=== PATIENT | female | born 1990 | race American Indian/Alaskan Native ===

== ENCOUNTER 2017-05-08 17:12 | Inpatient (IN) | payer OTHER ==
[2017-05-08 18:07] LABS: Basophils % (Auto) 0.3 % (0.0-1.8); Hematocrit 25.4 % (30.3-42.9); Hemoglobin 8.1 gm/dl (10.1-14.3); Mean Corpuscular HGB Conc 32 % (30-34); Mean Corpuscular Hemoglobin 26 pg (28-32); Mean Corpuscular Volume 83 fl (79-97); Platelet Count 86 K/mm3 (140-440); Red Blood Count 3.06 M/mm3 (3.65-5.03); Red Cell Distribution Width 19.1 % (13.2-15.2); White Blood Count 4.6 K/mm3 (4.5-11.0)
[2017-05-08 18:17] LABS: Albumin 2.5 g/dL (3.9-5); Albumin/Globulin Ratio 0.7 %; Bilirubin,Total 0.3 mg/dL (0.1-1.2); Calcium 7.3 mg/dL (8.4-10.2); Chloride 103.4 mmol/L (98-107); Potassium 4.7 mmol/L (3.6-5.0); Total Protein 6.1 g/dL (6.3-8.2)
[2017-05-08] MEDS ORDERED: NACL 0.9% 1000 ML 1,000 ML IV ONE (22:15)
[2017-05-08] MEDS ORDERED: ZOFRAN IV ONE (22:15)
--- NOTE | 2017-05-08 22:18 | Emergency Department Report ---
ED General Adult HPI - General Chief complaint: Weakness Stated complaint: POSSIBLE EAR INFECTON Time Seen by Provider: 05/08/17 21:58 Source: patient, EMS Mode of arrival: Ambulatory Limitations: No Limitations - History of Present Illness Initial comments: Patient is 26 years old female history of lupus came to the airways generalized weakness for the last 4 days, bilateral ear pain. Patient denied any vomiting. Denied any fever no diarrhea. Severity scale (0 -10): 7 - Related Data Home Medications Medication Instructions Recorded Confirmed Last Taken predniSONE [Deltasone] 10 mg PO BID 08/17/15 10/18/15 Unknown Previous Rx's Medication Instructions Recorded Last Taken Type HYDROcodone/APAP 5-325 [[place] 1 each PO Q6HR PRN #14 tablet 10/18/15 Unknown Rx 5/325] Levofloxacin [Levaquin TAB] 500 mg PO QDAY #10 tablet 10/18/15 Unknown Rx Meclizine [Antivert] 25 mg PO TID PRN #20 tablet 10/18/15 Unknown Rx Allergies Allergy/AdvReac Type Severity Reaction Status Date / Time No Known Allergies Allergy Unverified 08/17/15 16:18 ED Review of Systems ROS: Stated complaint: POSSIBLE EAR INFECTON Other details as noted in HPI Comment: All other systems reviewed and negative Constitutional: denies: chills, fever Respiratory: denies: cough, shortness of breath, SOB with exertion Cardiovascular: palpitations. denies: chest pain Gastrointestinal: nausea. denies: abdominal pain, vomiting, diarrhea, constipation, hematemesis Musculoskeletal: denies: back pain Neurological: weakness. denies: headache, numbness, paresthesias, confusion, abnormal gait, vertigo ED Past Medical Hx - Past Medical History Previous Medical History?: Yes Additional medical history: Lupus, anemia/hx transfusions - Social History Smoking Status: Never Smoker Substance Use Type: None - Medications Home Medications: Home Medications Medication Instructions Recorded Confirmed Last Taken Type predniSONE [Deltasone] 10 mg PO BID 08/17/15 10/18/15 Unknown History HYDROcodone/APAP 5-325 [[place] 1 each PO Q6HR PRN #14 tablet 10/18/15 Unknown Rx 5/325] Levofloxacin [Levaquin TAB] 500 mg PO QDAY #10 tablet 10/18/15 Unknown Rx Meclizine [Antivert] 25 mg PO TID PRN #20 tablet 10/18/15 Unknown Rx ED Physical Exam - General Limitations: No Limitations General appearance: alert, other (dry mucous membranes) - Head Head exam: Present: normocephalic - Eye Eye exam: Present: normal appearance - ENT ENT exam: Present: normal exam - Neck Neck exam: Present: normal inspection, full ROM. Absent: tenderness, meningismus, lymphadenopathy - Respiratory Respiratory exam: Present: normal lung sounds bilaterally. Absent: respiratory distress, wheezes, rales, rhonchi - Cardiovascular Cardiovascular Exam: Present: tachycardia - GI/Abdominal GI/Abdominal exam: Present: soft, normal bowel sounds. Absent: distended, tenderness, guarding, rebound, rigid, organomegaly, mass, bruit, pulsatile mass - Extremities Exam Extremities exam: Present: normal inspection, full ROM, normal capillary refill. Absent: tenderness, pedal edema - Back Exam Back exam: Present: normal inspection. Absent: CVA tenderness (R), CVA tenderness (L) - Neurological Exam Neurological exam: Present: alert, oriented X3, CN II-XII intact, normal gait - Skin Skin exam: Present: warm, dry, intact ED Course Vital Signs 05/08/17 05/08/17 05/08/17 17:19 20:28 21:43 Temperature 98 F 97.2 F L Pulse Rate 129 H 104 H 83 Respiratory 20 16 16 Rate Blood Pressure 100/70 123/81 O2 Sat by Pulse 100 10 L Oximetry 05/08/17 05/08/17 05/08/17 21:45 21:47 21:49 Temperature Pulse Rate 89 86 98 H Respiratory 15 22 26 H Rate Blood Pressure O2 Sat by Pulse 93 100 Oximetry 05/08/17 05/08/17 05/08/17 21:50 21:53 21:58 Temperature Pulse Rate 88 89 Respiratory 19 12 18 Rate Blood Pressure 124/81 124/81 O2 Sat by Pulse 100 100 98 Oximetry ED Medical Decision Making - Lab Data Result diagrams: 05/08/17 17:41 05/08/17 17:41 Critical care attestation.: If time is entered above; I have spent that time in minutes in the direct care of this critically ill patient, excluding procedure time. ED Disposition Clinical Impression: Acute renal failure, Dehydration Disposition: OP ADMIT IP TO THIS HOSP Is pt being admited?: Yes Condition: Stable Referrals: PRIMARY CARE, [Primary Care Provider] - 3-5 Days
[2017-05-09] MEDS ORDERED: ZOFRAN IV ONE (00:10)
[2017-05-09 00:33] LABS: Bacteria,Urine 2+ /HPF (Negative); Bilirubin,Urine NEG (Negative); Blood,Urine LG (Negative); Ketones,Urine NEG (Negative); Leukocyte Esterase,Urine NEG (Negative); Mucus,Urine FEW /HPF; Nitrite,Urine NEG (Negative); Urobilinogen,Urine < 2.0 mg/dL (<2.0)
[2017-05-09 00:34] LABS: Protein,Urine >500 mg/dL (Negative)
[2017-05-09] MEDS ORDERED: DULCOLAX PR PRN (02:18)
[2017-05-09] MEDS ORDERED: ZOFRAN IV PRN (02:18)
[2017-05-09] MEDS ORDERED: MILK OF MAGNESIA PO PRN (02:18)
[2017-05-09] MEDS ORDERED: NACL 0.9% 1000 ML 1,000 ML ONE (02:23)
[2017-05-09] MEDS ORDERED: SOLU MEDROL IV ONE (02:31)
[2017-05-09] MEDS ORDERED: D5W IV ONE (02:31)
--- NOTE | 2017-05-09 02:36 | History and Physical Report ---
History of Present Illness Date of examination: 05/09/17 History of present illness: A 26-year-old woman with a history of lupus, anemia comes emergency room with complaints of feeling like she has an ear infection. She complains of pain in the right greater than left ear, decreased sense of hearing. She states she felt the same when she had an ear infection the last time. She has been in the hospital his 3 days, she was treated for nausea vomiting and she had another hospitalization prior to that for nausea and vomiting. Review Of Systems: Constitutional: no weight loss Ears, eyes, nose, mouth and throat: no nasal congestion, no nasal discharge, no sinus pressure, blurry vision, diplopia Neck: No neck pain or rigidity. Cardiovascular: chest pain, orthopnea, palpitations Respiratory: No shortness of breath, cough Gastrointestinal: abdominal pain, hematochezia Genitourinary : no dysuria, frequency , hematuria Musculoskeletal: no muscle ache Integumentary: no rash, no pruritis Neurological: no parathesias, focal weakness Endocrine: no cold or heat intolerance, no polyuria or polydipsia Hematologic/Lymphatic: no easy bruising, no easy bleeding, no gland swelling Allergic/Immunologic: no urticaria, no angioedema. PAST MEDICAL HISTORY:lupus, anemia PAST SURGICAL HISTORY: None FAILY HISTORY: Hypertension SOCIAL HISTORY: Denies alcohol, tobacco, drugs Medications and Allergies Allergies Allergy/AdvReac Type Severity Reaction Status Date / Time No Known Allergies Allergy Unverified 08/17/15 16:18 Home Medications Medication Instructions Recorded Confirmed Last Taken Type No Known Home Medications [No 05/10/17 05/10/17 Unknown History Reported Home Medications] Active Meds: Active Medications Acetaminophen (Tylenol) 650 mg PO Q4H PRN PRN Reason: Pain MILD(1-3)/Fever >100.5/OLIVEIRA Bisacodyl (Dulcolax) 10 mg [place] QDAY PRN PRN Reason: Constipation unrelieved by MOM Sodium Chloride (Nacl 0.9% 1000 Ml) 1,000 mls @ 150 mls/hr IV DIRECT IBANKA Ceftriaxone Sodium (Rocephin/Ns 1 Gm/50 Ml) 1 gm in 50 mls @ 100 mls/hr IV Q24HR BIANKA PRN Reason: Protocol Methylprednisolone Sodium (Succinate 60 mg/ Dextrose) 50 mls @ 100 mls/hr IV ONCE ONE Stop: 05/09/17 03:00 Magnesium Hydroxide (Milk Of Magnesia) 30 ml PO Q4H PRN PRN Reason: Constipation Ondansetron HCl (Zofran) 4 mg IV Q4H PRN PRN Reason: N/V unrelieved by Reglan Exam - Physical Exam Narrative exam: Gen. appearance: Patient lying in bed in no acute distress HEENT: Normocephalic/atraumatic, pupils equal round reactive to light, extra alkaline movement intact, no scleral icterus, no JVD or thyromegaly or nodule, neck is supple, mucous membrane moist, no erythema or exudate Heart: S1-S2, regular rate and rhythm Lungs: Clear to auscultation bilateral breathing comfortable Abdomen: Positive bowel sounds, nontender, nondistended, no organomegaly Extremities: No edema, cyanosis, clubbing Neuro:: Oriented 3 , cranial nerves II-12 intact, speech, motor intact Skin: No rash, nodules, warm dry - Constitutional Vitals: Temp Pulse Resp BP Pulse Ox 97.2 F L 72 16 103/64 100 05/08/17 20:28 05/09/17 01:27 05/09/17 01:27 05/09/17 01:27 05/09/17 01:27 Results - Labs CBC & Chem 7: 05/12/17 04:46 05/12/17 04:46 Labs: Abnormal lab results 05/08/17 05/08/17 05/08/17 Range/Units 17:41 17:41 Unknown RBC 3.06 L (3.65-5.03) M/mm3 Hgb 8.1 L (10.1-14.3) gm/dl Hct 25.4 L (30.3-42.9) % MCH 26 L (28-32) pg RDW 19.1 H (13.2-15.2) % Plt Count 86 L (140-440) K/mm3 Lymph # 0.8 L (1.2-5.4) K/mm3 Seg Neutrophils % 77.6 H (40.0-70.0) % Carbon Dioxide 17 L (22-30) mmol/L BUN 99 H (7-17) mg/dL Creatinine 4.0 H (0.7-1.2) mg/dL Glucose 109 H (65-100) mg/dL Calcium 7.3 L (8.4-10.2) mg/dL AST 133 H (5-40) units/L ALT 66 H (7-56) units/L Total Protein 6.1 L (6.3-8.2) g/dL Albumin 2.5 L (3.9-5) g/dL Urine WBC (Auto) 22.0 H (0.0-6.0) /HPF Assessment and Plan Assessment Acute renal failure Possible lupus flare UTI Possible ear infection Anemia Plan Admit to medicine Start IV fluids, check urine electrolytes, obtain ultrasound of the kidneys Start IV Rocephin,start steroids, first dose now Continue appropriate outpatient medications, DVT prophylaxis
--- NOTE | 2017-05-09 03:33 | Ultrasound Report ---
FINAL REPORT EXAM: US RENAL BILAT HISTORY: arf TECHNIQUE: Routine sonographic evaluation was obtained of both kidneys. FINDINGS: Both kidneys reveal diffusely increased echotexture of the cortices bilaterally compatible with renal medical disease. There is no evidence of hydronephrosis or shadowing stones. The right kidney measures 11.7 cm x 5.9 cm x 5.4 cm. The left kidney measures 11.3 cm x 5.3 cm x 5.1 cm. IMPRESSION: Increased cortical echotexture both kidneys compatible with renal medical disease. No evidence of renal stones or hydronephrosis.
[2017-05-09] MEDS: NACL 0.9% 1000 ML 1,000 ML IV SCH ×3 (04:47→23:04)
[2017-05-09 10:13] LABS: Calcium 6.5 mg/dL (8.4-10.2); Potassium 4.8 mmol/L (3.6-5.0)
[2017-05-09] MEDS: DELTASONE PO SCH (10:41)
[2017-05-09] MEDS: ROCEPHIN/NS 1 GM/50 ML 1 GM/50 ML BAG IV SCH (10:42)
[2017-05-09] MEDS: MEGACE PO SCH ×4 (11:13→23:03)
--- NOTE | 2017-05-09 13:14 | Consultation ---
History of Present Illness - Reason for Consult Consult date: 05/09/17 acute renal failure, metabolic acidosis Requesting physician: REENA MAO - History of Present Illness This is a 26 year old female with PMH of Lupus (diagnosed in 2008) and anemia who presented to [facility] today with complaints of generalized weakness, fatigue, nosebleed (woke up with nosebleed), decreased appetite, and bilateral ear pain with drainage for the past 3-4 days. Patient states she was hospitalized [facility] overnight last week for suspected lupus flare up, prescribed prednisone upon discharge. Patient also states she had an infection (not sure of source) when she was at [place], no antibiotics prescribed. Patient denies NSAIDs or antibiotics (doesn't recall taking levaquin). On admission, SCr level was 4.0, decreased to 3.0 today. Renal ultrasound showed increased cortical echotexture both kidneys compatible with renal medical disease, no renal stones or hydronephrosis. Review of labs in 2015 showed SCr level between 0.5-0.6. Patient denies any known history of kidney problems. Sister at bedside, states patient had black stool a couple of weeks ago, but attributed it to her taking iron tablets. We were consulted to evaluate this patient who has acute renal failure and nephrology consultation requested. Past History Past Medical History: anemia, other (lupus) Medications and Allergies Allergies Allergy/AdvReac Type Severity Reaction Status Date / Time No Known Allergies Allergy Unverified 08/17/15 16:18 Home Medications Medication Instructions Recorded Confirmed Last Taken Type predniSONE [Deltasone] 10 mg PO BID 08/17/15 10/18/15 Unknown History HYDROcodone/APAP 5-325 [[place] 1 each PO Q6HR PRN #14 tablet 10/18/15 Unknown Rx 5/325] Levofloxacin [Levaquin TAB] 500 mg PO QDAY #10 tablet 10/18/15 Unknown Rx Meclizine [Antivert] 25 mg PO TID PRN #20 tablet 10/18/15 Unknown Rx Active Meds: Active Medications Acetaminophen (Tylenol) 650 mg PO Q4H PRN PRN Reason: Pain MILD(1-3)/Fever >100.5/OLIVEIRA Bisacodyl (Dulcolax) 10 mg [place] QDAY PRN PRN Reason: Constipation unrelieved by MOM Sodium Chloride (Nacl 0.9% 1000 Ml) 1,000 mls @ 150 mls/hr IV DIRECT [facility] Last Admin: 05/09/17 10:42 Dose: 150 mls/hr Ceftriaxone Sodium (Rocephin/Ns 1 Gm/50 Ml) 1 gm in 50 mls @ 100 mls/hr IV Q24HR [facility] PRN Reason: Protocol Last Admin: 05/09/17 10:42 Dose: 100 mls/hr Magnesium Hydroxide (Milk Of Magnesia) 30 ml PO Q4H PRN PRN Reason: Constipation Megestrol Acetate (Megace) 40 mg PO QID [facility] Last Admin: 05/09/17 11:13 Dose: 40 mg Ondansetron HCl (Zofran) 4 mg IV Q4H PRN PRN Reason: N/V unrelieved by Reglan Prednisone (Deltasone) 60 mg PO QDAY [facility] Last Admin: 05/09/17 10:41 Dose: 60 mg Review of Systems Constitutional: fatigue, weakness, poor appetite, no fever, no chills Ears, nose, mouth and throat: ear pain, ear discharge (bilateral ear drainage ( unsure about color)) Cardiovascular: dyspnea on exertion, no edema, no lightheadedness, no shortness of breath, no leg edema Respiratory: no cough with sputum, no shortness of breath, no home oxygen Gastrointestinal: nausea, loss of appetite, no abdominal pain, no vomiting, no diarrhea, no constipation, no hematemesis Genitourinary Female: kidney stones Menstruation: currently menstrual Musculoskeletal: no arm numbness/tingling, no leg numbness/tingling Integumentary: no sores, no wounds Neurological: no numbness, no tingling, no seizures, no headaches, no change in speech, no loss of vision Psychiatric: no anxiety, no depression Exam - Vital Signs Vital signs: Vital Signs Temp Pulse Resp BP Pulse Ox 98 F 129 H 20 100/70 100 05/08/17 17:19 05/08/17 17:19 05/08/17 17:19 05/08/17 17:19 05/08/17 17:19 - General Appearance General appearance: well-nourished (no acute distress) EENT: ATNC Neck: Present: neck supple Respiratory: Clear to Ascultation Heart: regular, S1S2 Gastrointestinal: Present: normoactive bowel sounds. Absent: tenderness, distended Integumentary: warm and dry Neurologic: alert and oriented x3 Musculoskeletal: Present: other (no edema to both lower extremities) Psychiatric: mood/affect appropriate, cooperative Results - Lab Results 05/08/17 17:41 05/09/17 09:37 Most recent lab results Calcium 6.5 mg/dL (8.4-10.2) L 05/09/17 09:37 Urine Creatinine 62.5 mg/dL (0.1-20.0) H 05/09/17 02:36 Urine Sodium 30 mmol/L 05/09/17 02:36 Assessment and Plan - Patient Problems (1) Acute renal failure Current Visit: Yes Status: Acute Qualifiers: Acute renal failure type: A Plan to address problem: Renal function reviewed, SCr level decreased to 3.0 today, yesterday's SCr level was 4.0 Acute Renal Failure possibly secondary to prerenal etiology/ATN from dehydration , possibly lupus nephritis, no evidence of obstruction Exact SCr baseline unknown, review of labs in 2015 showed SCr level between 0.5- 0.6 Obtain C3,C4, CH50, DNA(ds) antibody, MALU level for now If renal function continues to improve on IV fluids, possibly not lupus nephritis etiology and more likely prerenal azotemia. If renal function doesn't improve and/or worsens, possibly lupus nephritis and work up additional glomerulonephritis Continue 0.9% NS infusion at 150 ml/hr, monitor volume and respiratory status closely Obtain urine lytes/studies Renally dose medications Obtain daily weight Strict intake and output Renal plan discussed with Dr Bryant Continue supportive therapy (2) Metabolic acidosis Current Visit: Yes Status: Acute Plan to address problem: Non-anion gap metabolic acidosis possibly secondary to acute renal failure Repeat BMP today at 1800 Obtain ABG If warrented, will start on sodium bicarbonate supplementation (3) Lupus Current Visit: No Status: Acute Qualifiers: Systemic lupus erythematosus type: S Systemic lupus erythematosus organ involvement: S Plan to address problem: Started on prednisone 60 mg orally once a day Questionable lupus flare up As per primary team (4) Acute otitis media Current Visit: Yes Status: Acute Qualifiers: Otitis media type: O Laterality: L Recurrence: R Spontaneous tympanic membrane rupture: S Plan to address problem: Possible acute otitis media Started on rocephin (5) Dehydration Current Visit: Yes Status: Acute Plan to address problem: Started on 0.9% NS infusion at 150 ml/hr Monitor volume status closely (6) Anemia Current Visit: Yes Status: Acute Qualifiers: Anemia type: A Iron deficiency anemia type: I Vitamin B12 deficiency anemia type: V Folate deficiency anemia type: F Bone marrow failure anemia type: B Hemolytic anemia type: H Other causes of anemia: O Chronic kidney disease stage: C Plan to address problem: Hgb level was 8.1 yesterday Obtain iron studies
--- NOTE | 2017-05-09 13:31 | Event Note ---
Date: 05/09/17 26-year-old -[place] female admitted this morning for acute renal failure, acute otitis media, and lupus flareup. Nephrology was consulted. Continue with the current management plan.
[2017-05-09 14:08] LABS: Magnesium 2.4 mg/dL (1.7-2.3); Phosphorous 5.8 mg/dL (2.5-4.5)
[2017-05-09 19:06] LABS: ISTAT Base Excess -11; ISTAT DEVICE 0; ISTAT HCO3 14.9; ISTAT PCO2 29.3 (35-45); ISTAT PH 7.313 (7.35-7.45); ISTAT PO2 103 (80-105); ISTAT SO2 97; ISTAT TCO2 16
[2017-05-10 05:46] LABS: Basophils % (Auto) 0.3 % (0.0-1.8); Mean Corpuscular HGB Conc 32 % (30-34); Mean Corpuscular Hemoglobin 26 pg (28-32); Mean Corpuscular Volume 82 fl (79-97); Red Blood Count 2.25 M/mm3 (3.65-5.03); Red Cell Distribution Width 18.6 % (13.2-15.2); White Blood Count 2.4 K/mm3 (4.5-11.0)
[2017-05-10 05:52] LABS: Platelet Count 57 K/mm3 (140-440)
[2017-05-10 05:54] LABS: Hematocrit 18.5 % (30.3-42.9); Hemoglobin 5.9 gm/dl (10.1-14.3)
[2017-05-10 06:53] LABS: Sodium TNR mmol/L (137-145)
[2017-05-10 06:54] LABS: Anion Gap TNR mmol/L; BUN/Creatinine Ratio TNR; Blood Urea Nitrogen TNR mg/dL (7-17); Calcium TNR mg/dL (8.4-10.2); Carbon Dioxide TNR mmol/L (22-30); Chloride TNR mmol/L (98-107); Glucose TNR mg/dL (65-100); Potassium TNR mmol/L (3.6-5.0)
[2017-05-10 07:56] LABS: Hematocrit 19.3 % (30.3-42.9)
[2017-05-10] MEDS ORDERED: NACL 0.9% 500 ML 500 ML IV NR (08:00)
[2017-05-10] MEDS: DELTASONE PO SCH (09:01)
[2017-05-10] MEDS: MEGACE PO SCH ×4 (09:01→22:56)
[2017-05-10] MEDS: ROCEPHIN/NS 1 GM/50 ML 1 GM/50 ML BAG IV SCH (09:07)
[2017-05-10] MEDS: PERCOCET 5/325 PO PRN (09:15)
[2017-05-10 10:13] LABS: Calcium 7.2 mg/dL (8.4-10.2); Chloride 113.9 mmol/L (98-107); Potassium 4.3 mmol/L (3.6-5.0)
--- NOTE | 2017-05-10 12:17 | XRay Report ---
CHEST ONE VIEW INDICATION: Chest pain. COMPARISON: 11/06/2015. FINDINGS: Portable, single, frontal chest radiograph demonstrates normal cardiomediastinal silhouette. Clear lungs. Extrinsic EKG leads. Mild lumbar curvature without acute osseous process. CONCLUSION: No acute disease in the chest. Thank you for the opportunity to participate in this patient's care.
--- NOTE | 2017-05-10 15:57 | Progress Note ---
Assessment and Plan Assessment and plan: This is a 26 year old female with PMH of Lupus (diagnosed in 2008) and anemia who presented to [facility] today with complaints of generalized weakness, fatigue, nosebleed (woke up with nosebleed), decreased appetite, and bilateral ear pain with drainage for the past 3-4 days. Patient states she was hospitalized [facility] overnight last week for suspected lupus flare up, prescribed prednisone upon discharge. Patient also states she had an infection (not sure of source) when she was at [place], no antibiotics prescribed. Acute renal failure - ATN versus lupus nephritis - Nephrology consulted - Creatinine improved from 4-2.6 to morning - Patient was given IV fluids and steroids SLE flareup - Continue steroids Bilateral otitis media - Continue IV antibiotic -ID consult requested Severe anemia - Transfusion ordered we'll check posttransfusion hemoglobin and hematocrit Decreased appetite - megestrol ordered DVT prophylaxis - SCDs because of severe anemia Disposition - Continue inpatient care CODE STATUS Full Her sister Karen was called for update At [phone] but didn't answer the phone. History Interval history: Attempt was seen and evaluated this morning, patient did have any new complaints. Patient has hard of hearing. I discussed the management plan with the patient. I tried to reach to her sister Karen @[phone] unsuccessfully. Hospitalist Physical - Physical exam Narrative exam: Not in cardiopulmonary distress. The patient appeared friable. Vital signs as documented. Head exam is unremarkable. Pale Conjunctivae anicteric sclera Neck is without jugular venous distension, thyromegaly, or carotid bruits. Lungs are clear to auscultation. Cardiac exam reveals regular rate and Rhythm. First and second heart sounds normal. No murmurs, rubs or gallops. Abdominal exam reveals normal bowel sounds, no masses, no organomegaly and no aortic enlargement. Extremities are nonedematous and both femoral and pedal pulses are normal. CMO: Alert and oriented 3. No focal weakness. - Constitutional Vitals: Temp Pulse Resp BP Pulse Ox 98.2 F 66 18 94/59 100 05/10/17 12:00 05/10/17 12:00 05/10/17 12:00 05/10/17 12:00 05/10/17 12:00 Results - Labs CBC & Chem 7: 05/10/17 07:20 05/10/17 09:44 Labs: Laboratory Last Values WBC 2.4 K/mm3 (4.5-11.0) L 05/10/17 04:36 RBC 2.25 M/mm3 (3.65-5.03) L 05/10/17 04:36 Hgb 6.0 gm/dl (10.1-14.3) L 05/10/17 07:20 Hct 19.3 % (30.3-42.9) L* 05/10/17 07:20 MCV 82 fl (79-97) 05/10/17 04:36 MCH 26 pg (28-32) L 05/10/17 04:36 MCHC 32 % (30-34) 05/10/17 04:36 RDW 18.6 % (13.2-15.2) H 05/10/17 04:36 Plt Count 57 K/mm3 (140-440) L 05/10/17 04:36 Lymph % (Auto) 13.5 % (13.4-35.0) 05/10/17 04:36 [place] % (Auto) 5.8 % (0.0-7.3) 05/10/17 04:36 Eos % (Auto) 0.0 % (0.0-4.3) 05/10/17 04:36 Baso % (Auto) 0.3 % (0.0-1.8) 05/10/17 04:36 Lymph # 0.3 K/mm3 (1.2-5.4) L 05/10/17 04:36 Sherman # 0.1 K/mm3 (0.0-0.8) 05/10/17 04:36 Eos # 0.0 K/mm3 (0.0-0.4) 05/10/17 04:36 Baso # 0.0 K/mm3 (0.0-0.1) 05/10/17 04:36 Seg Neutrophils % 80.4 % (40.0-70.0) H 05/10/17 04:36 Seg Neutrophils # 1.9 K/mm3 (1.8-7.7) 05/10/17 04:36 POC ABG pH 7.313 (7.35-7.45) L 05/09/17 19:00 POC ABG pCO2 29.3 (35-45) L 05/09/17 19:00 POC ABG pO2 103 (80-105) 05/09/17 19:00 POC ABG HCO3 14.9 05/09/17 19:00 POC ABG Total CO2 16 05/09/17 19:00 POC ABG O2 Sat 97 05/09/17 19:00 POC ABG Base Excess -11 05/09/17 19:00 FiO2 21 % 05/09/17 19:00 Sodium 141 mmol/L (137-145) 05/10/17 09:44 Potassium 4.3 mmol/L (3.6-5.0) 05/10/17 09:44 Chloride 113.9 mmol/L (98-107) H 05/10/17 09:44 Carbon Dioxide 17 mmol/L (22-30) L 05/10/17 09:44 Anion Gap 14 mmol/L 05/10/17 09:44 BUN 81 mg/dL (7-17) H 05/10/17 09:44 Creatinine 2.6 mg/dL (0.7-1.2) H 05/10/17 09:44 Estimated GFR 27 ml/min 05/10/17 09:44 BUN/Creatinine Ratio 31 % 05/10/17 09:44 Glucose 129 mg/dL (65-100) H 05/10/17 09:44 Calcium 7.2 mg/dL (8.4-10.2) L 05/10/17 09:44 Phosphorus 5.80 mg/dL (2.5-4.5) H 05/09/17 13:19 Magnesium 2.40 mg/dL (1.7-2.3) H 05/09/17 13:19 Total Bilirubin 0.30 mg/dL (0.1-1.2) 05/08/17 17:41 AST 133 units/L (5-40) H 05/08/17 17:41 ALT 66 units/L (7-56) H 05/08/17 17:41 Alkaline Phosphatase 60 units/L (35-129) 05/08/17 17:41 Troponin T 0.091 ng/mL (0.00-0.029) H 05/10/17 09:44 Total Protein 6.1 g/dL (6.3-8.2) L 05/08/17 17:41 Albumin 2.5 g/dL (3.9-5) L 05/08/17 17:41 Albumin/Globulin Ratio 0.7 % 05/08/17 17:41 PTH Intact 117.2 pg/mL (15-65) H 05/09/17 13:19 Urine Color Yellow (Yellow) 05/08/17 Unknown Urine Turbidity Clear (Clear) 05/08/17 Unknown Urine pH 5.0 (5.0-7.0) 05/08/17 Unknown Ur Specific [place] 1.013 (1.003-1.030) 05/08/17 Unknown Urine Protein >500 mg/dL (Negative) 05/08/17 Unknown Urine Glucose (UA) Neg mg/dL (Negative) 05/08/17 Unknown Urine Ketones Neg mg/dL (Negative) 05/08/17 Unknown Urine Blood Lg (Negative) 05/08/17 Unknown Urine Nitrite Neg (Negative) 05/08/17 Unknown Ur Reducing Substances Not Reportable 05/08/17 Unknown Urine Bilirubin Neg (Negative) 05/08/17 Unknown Urine Ictotest Not Reportable 05/08/17 Unknown Urine Urobilinogen < 2.0 mg/dL (<2.0) 05/08/17 Unknown Ur Leukocyte Esterase Neg (Negative) 05/08/17 Unknown Urine WBC (Auto) 22.0 /HPF (0.0-6.0) H 05/08/17 Unknown Urine RBC (Auto) 10.0 /HPF (0.0-6.0) 05/08/17 Unknown U Epithel Cells (Auto) 2.0 /HPF (0-13.0) 05/08/17 Unknown Urine Bacteria (Auto) 2+ /HPF (Negative) 05/08/17 Unknown Urine Mucus Few /HPF 05/08/17 Unknown Urine Eosinophils None seen (None Seen) 05/09/17 02:36 Urine Osmolality 344 Mosm/kg 05/09/17 02:36 Urine Creatinine 62.5 mg/dL (0.1-20.0) H 05/09/17 02:36 Urine Sodium 30 mmol/L 05/09/17 02:36 Urine HCG, Qual Negative (Negative) 05/08/17 Unknown Blood Type AB POSITIVE 05/10/17 08:12 Antibody Screen Positive 05/10/17 08:12 FRANDY Antibody Screen Positive 05/10/17 08:12 Direct Antiglob Test Positive 05/10/17 08:12 ABDIRAHMAN (IgG-AHG) Positive 05/10/17 08:12 ABDIRAHMAN, Poly Interpret Positive 05/10/17 08:12 ABDIRAHMAN, Anti-C3 Negative 05/10/17 08:12 Crossmatch See Detail 05/10/17 08:12 Hemoglobin drop to 6.2
[2017-05-10 17:19] LABS: Hemoglobin 6.1 gm/dl (10.1-14.3)
[2017-05-10 17:22] LABS: Hematocrit 19.1 % (30.3-42.9)
--- NOTE | 2017-05-10 17:45 | Progress Note ---
Assessment and Plan Acute Renal failure possible pre renal/ATN vs Lupus nephritis: Unknown CKD: -Cr in 2016 was 0.6 but no recent baseline available so unknown if has CKD or not. Came in on 05/08 with Cr of 4. -Complement levels, DsDNA and MALU ordered -Check Urine PCR, CK, Urine eosinophils. -Continue IVFs. Cr trending down -Will need Renal biopsy once UTI resolves -Renally dose all meds and avoid nephrotoxic meds Metabolic acidosis: -Start NaHCO3 tabs Urinary tract infection: -On Rocephin -Urine and blood Cx ordered. Lupus: -On steroids -Recommend Rheum consult -Per primary Acute otitis media: -On Abx Anemia of chronic disease possible due to lupus: Leukopenia: Thrombocytopenia: -Pancytopenia likely from Lupus -Transfuse PRN per primary Jimmy Balderrama MD Nephrology, Hypertension, Dialysis, Transplantation Phone no: [phone] Subjective Date of service: 05/10/17 Interval history: Denies CP/SHOB. Objective - Exam Narrative Exam: GE: AAOX3, HEENT: PERRLA Neck: No JVD Chest: CTAB CVS: RRR Abd: BS+, soft, NT Ext: No BLE edema Neuro: AAOX3 - Vital Signs Vital signs: Vital Signs - 12hr 05/10/17 05/10/17 05/10/17 08:00 08:32 11:00 Temperature 98.0 F Pulse Rate 58 L 65 Respiratory 18 Rate Blood Pressure 101/68 [Left] O2 Sat by Pulse 100 100 Oximetry 05/10/17 12:00 Temperature 98.2 F Pulse Rate 66 Respiratory 18 Rate Blood Pressure 94/59 [Left] O2 Sat by Pulse 100 Oximetry - Lab 05/10/17 16:41 05/10/17 09:44 Most recent lab results Calcium 7.2 mg/dL (8.4-10.2) L 05/10/17 09:44 Phosphorus 5.80 mg/dL (2.5-4.5) H 05/09/17 13:19 Magnesium 2.40 mg/dL (1.7-2.3) H 05/09/17 13:19 Urine Creatinine 62.5 mg/dL (0.1-20.0) H 05/09/17 02:36 Urine Sodium 30 mmol/L 05/09/17 02:36
[2017-05-10 20:53] LABS: Chloride 112.6 mmol/L (98-107); Potassium 4.5 mmol/L (3.6-5.0)
[2017-05-10 20:55] LABS: Creatine Kinase MB 6.6 ng/mL (0.0-4.0)
[2017-05-10] MEDS: SODIUM BICARBONATE PO SCH (22:55)
[2017-05-11] MEDS: SODIUM BICARBONATE 150 MEQ in D5W 1,000 ML IV SCH (00:22)
--- NOTE | 2017-05-11 08:19 | Progress Note ---
Assessment and Plan Assessment and plan: This is a 26 year old female with PMH of Lupus (diagnosed in 2008) and anemia who presented to [facility] today with complaints of generalized weakness, fatigue, nosebleed (woke up with nosebleed), decreased appetite, and bilateral ear pain with drainage for the past 3-4 days. Patient states she was hospitalized [facility] overnight last week for suspected lupus flare up, prescribed prednison upon discharge. Patient also states she had an infection (not sure of source) when she was at [place], no antibiotics prescribed. Acute kidney injury - ATN versus lupus nephritis - Nephrology consulted - Creatinine improved from 4-2.6 to morning - Plan per nephrology for renal biopsy once UTI treated - Patient was given IV fluids and steroids Severe anemia - Transfusion ordered we'll check posttransfusion hemoglobin and hematocrit - Patient with multiple antibodies delaying transfusion - ?Autoimmune, will consult [facility] - Will send for stool occult blood, avoid all antiplatelet medications at this time SLE flareup - Continue steroids Bilateral otitis media - Continue IV antibiotic -Cefriaxone stopped and patient started on cefepime to cover for GPC AND GNB including pseudomonas -ID consult requested -ENT strongly encouraged out patient, and patient verablized understanding SIRS secondary to Acute Cystitis-POA - Continue Abx, check urine culture Type 2 PA secondary to MARITZA - Patient denies any chest pain Decreased appetite - megestrol ordered - Nutrition consult, Check Albumin level DVT prophylaxis - SCDs because of severe anemia Disposition - Continue inpatient care CODE STATUS Full The high probability of a clinically significant, sudden or life threatening deterioration of the [Hematology] system(s) required my full and direct attention, intervention and personal management. The aggregate critical care time was [35] minutes. This time is in addition to time spent performing reported procedures but includes the following: [x] Data Review and interpretation [x] Patient assessment and monitoring of vital signs [x] Documentation [x] Medication orders and management History Interval history: patient seen and examined in no acute distress. Some hard of hearing noted. Hospitalist Physical - Physical exam Narrative exam: VITAL SIGNS: Reviewed. GENERAL: The patient appeared well nourished and normally developed. Vital signs as documented. HEAD: No signs of head trauma. EYES: Pupils are equal. Extraocular motions intact. EARS: Appears to have hard of hearing. MOUTH: Oropharynx is normal. NECK: No adenopathy, no JVD. CHEST: Chest with clear breath sounds bilaterally. No wheezes, rales, or rhonchi. CARDIAC: Regular rate and rhythm. S1 and S2, without murmurs, gallops, or rubs. VASCULAR: No Edema. Peripheral pulses normal and equal in all extremities. ABDOMEN: Soft, without detectable tenderness. No sign of distention. No rebound or guarding, and no masses palpated. Bowel Sounds normal. MUSCULOSKELETAL: Good range of motion of all major joints. Extremities without clubbing, cyanosis or edema. NEUROLOGIC EXAM: Alert and oriented x 3. No focal sensory or strength deficits. Speech normal. Follows commands. PSYCHIATRIC: Mood normal. SKIN: No rash or lesions. - Constitutional Vitals: Temp Pulse Resp BP Pulse Ox 97.4 F L 64 18 97/66 100 05/11/17 00:34 05/11/17 00:34 05/11/17 01:44 05/11/17 00:34 05/11/17 00:34 Results - Labs CBC & Chem 7: 05/12/17 04:46 05/12/17 04:46 Labs: Laboratory Last Values WBC 2.4 K/mm3 (4.5-11.0) L 05/10/17 04:36 RBC 2.25 M/mm3 (3.65-5.03) L 05/10/17 04:36 Hgb 6.1 gm/dl (10.1-14.3) L 05/10/17 16:41 Hct 19.1 % (30.3-42.9) L* 05/10/17 16:41 MCV 82 fl (79-97) 05/10/17 04:36 MCH 26 pg (28-32) L 05/10/17 04:36 MCHC 32 % (30-34) 05/10/17 04:36 RDW 18.6 % (13.2-15.2) H 05/10/17 04:36 Plt Count 57 K/mm3 (140-440) L 05/10/17 04:36 Lymph % (Auto) 13.5 % (13.4-35.0) 05/10/17 04:36 Dauphin % (Auto) 5.8 % (0.0-7.3) 05/10/17 04:36 Eos % (Auto) 0.0 % (0.0-4.3) 05/10/17 04:36 Baso % (Auto) 0.3 % (0.0-1.8) 05/10/17 04:36 Lymph # 0.3 K/mm3 (1.2-5.4) L 05/10/17 04:36 Dauphin # 0.1 K/mm3 (0.0-0.8) 05/10/17 04:36 Eos # 0.0 K/mm3 (0.0-0.4) 05/10/17 04:36 Baso # 0.0 K/mm3 (0.0-0.1) 05/10/17 04:36 Seg Neutrophils % 80.4 % (40.0-70.0) H 05/10/17 04:36 Seg Neutrophils # 1.9 K/mm3 (1.8-7.7) 05/10/17 04:36 POC ABG pH 7.313 (7.35-7.45) L 05/09/17 19:00 POC ABG pCO2 29.3 (35-45) L 05/09/17 19:00 POC ABG pO2 103 (80-105) 05/09/17 19:00 POC ABG HCO3 14.9 05/09/17 19:00 POC ABG Total CO2 16 05/09/17 19:00 POC ABG O2 Sat 97 05/09/17 19:00 POC ABG Base Excess -11 05/09/17 19:00 FiO2 21 % 05/09/17 19:00 Sodium 140 mmol/L (137-145) 05/10/17 19:32 Potassium 4.5 mmol/L (3.6-5.0) 05/10/17 19:32 Chloride 112.6 mmol/L (98-107) H 05/10/17 19:32 Carbon Dioxide 15 mmol/L (22-30) L 05/10/17 19:32 Anion Gap 17 mmol/L 05/10/17 19:32 BUN 80 mg/dL (7-17) H 05/10/17 19:32 Creatinine 2.4 mg/dL (0.7-1.2) H 05/10/17 19:32 Estimated GFR 29 ml/min 05/10/17 19:32 BUN/Creatinine Ratio 33 % 05/10/17 19:32 Glucose 144 mg/dL (65-100) H 05/10/17 19:32 Calcium 7.0 mg/dL (8.4-10.2) L 05/10/17 19:32 Phosphorus 5.80 mg/dL (2.5-4.5) H 05/09/17 13:19 Magnesium 2.40 mg/dL (1.7-2.3) H 05/09/17 13:19 Total Bilirubin 0.30 mg/dL (0.1-1.2) 05/08/17 17:41 AST 133 units/L (5-40) H 05/08/17 17:41 ALT 66 units/L (7-56) H 05/08/17 17:41 Alkaline Phosphatase 60 units/L (35-129) 05/08/17 17:41 Total Creatine Kinase 280 units/L (30-135) H 05/10/17 19:32 CK-MB (CK-2) 6.6 ng/mL (0.0-4.0) H 05/10/17 19:32 CK-MB (CK-2) Rel Index 2.3 (0-4) 05/10/17 19:32 Troponin T 0.091 ng/mL (0.00-0.029) H 05/10/17 09:44 Total Protein 6.1 g/dL (6.3-8.2) L 05/08/17 17:41 Albumin 2.5 g/dL (3.9-5) L 05/08/17 17:41 Albumin/Globulin Ratio 0.7 % 05/08/17 17:41 PTH Intact 117.2 pg/mL (15-65) H 05/09/17 13:19 Urine Color Yellow (Yellow) 05/08/17 Unknown Urine Turbidity Clear (Clear) 05/08/17 Unknown Urine pH 5.0 (5.0-7.0) 05/08/17 Unknown Ur Specific Itmann 1.013 (1.003-1.030) 05/08/17 Unknown Urine Protein >500 mg/dL (Negative) 05/08/17 Unknown Urine Glucose (UA) Neg mg/dL (Negative) 05/08/17 Unknown Urine Ketones Neg mg/dL (Negative) 05/08/17 Unknown Urine Blood Lg (Negative) 05/08/17 Unknown Urine Nitrite Neg (Negative) 05/08/17 Unknown Ur Reducing Substances Not Reportable 05/08/17 Unknown Urine Bilirubin Neg (Negative) 05/08/17 Unknown Urine Ictotest Not Reportable 05/08/17 Unknown Urine Urobilinogen < 2.0 mg/dL (<2.0) 05/08/17 Unknown Ur Leukocyte Esterase Neg (Negative) 05/08/17 Unknown Urine WBC (Auto) 22.0 /HPF (0.0-6.0) H 05/08/17 Unknown Urine RBC (Auto) 10.0 /HPF (0.0-6.0) 05/08/17 Unknown U Epithel Cells (Auto) 2.0 /HPF (0-13.0) 05/08/17 Unknown Urine Bacteria (Auto) 2+ /HPF (Negative) 05/08/17 Unknown Urine Mucus Few /HPF 05/08/17 Unknown Urine Eosinophils None seen (None Seen) 05/09/17 02:36 Urine Osmolality 344 Mosm/kg 05/09/17 02:36 Urine Creatinine 62.5 mg/dL (0.1-20.0) H 05/09/17 02:36 Urine Sodium 30 mmol/L 05/09/17 02:36 Urine HCG, Qual Negative (Negative) 05/08/17 Unknown Blood Type AB POSITIVE 05/10/17 08:12 Antibody Screen Positive 05/10/17 08:12 FRANDY Antibody Screen Positive 05/10/17 08:12 Direct Antiglob Test Positive 05/10/17 08:12 ABDIRAHMAN (IgG-AHG) Positive 05/10/17 08:12 ABDIRAHMAN, Poly Interpret Positive 05/10/17 08:12 ABDIRAHMAN, Anti-C3 Negative 05/10/17 08:12 Crossmatch See Detail 05/10/17 08:12 - Imaging and Cardiology Chest x-ray: image reviewed (negative chest xray)
[2017-05-11] MEDS: SODIUM BICARBONATE PO SCH ×3 (09:00→21:50)
--- NOTE | 2017-05-11 10:23 | Consultation ---
History of Present Illness Consult date: 05/11/17 Requesting physician: JAGUAR CAMPBELL Consult reason: chest pain, congestive heart failure, other (SLE) History of present illness: Pt is a 26-year-old woman with a past medical history significant for lupus ( diagnosed in 2008) and chronic anemia. She is previously unknown to our practice. She recently relocated to [place] from [place]. She presented with c/o right ear pain 3-4 days [employer] and a bout of epistaxis. Pt was recently reportedly hospitalized at [place] last week for suspected lupus flare and was prescribed prednisone at discharge. Following admission to [facility], pt was diagnosed with SLE flare, severe anemia, acute renal failure, acute cystitis, otitis media. Pt also admits chest pain for the past several years. She describes her chest pain as an intermittent, nonradiating, nonexertional, midsternal stabbing pain. Troponin was also found to be elevated x 1 set and thus cardiology has been consulted. Pt denies any prior ischemic evaluation. Past History Past Medical History: anemia, other (lupus) Medications and Allergies Allergies Allergy/AdvReac Type Severity Reaction Status Date / Time No Known Allergies Allergy Unverified 08/17/15 16:18 Home Medications Medication Instructions Recorded Confirmed Last Taken Type No Known Home Medications [No 05/10/17 05/10/17 Unknown History Reported Home Medications] Active Meds: Active Medications Acetaminophen (Tylenol) 650 mg PO Q4H PRN PRN Reason: Pain MILD(1-3)/Fever >100.5/OLIVEIRA Bisacodyl (Dulcolax) 10 mg [place] QDAY PRN PRN Reason: Constipation unrelieved by MOM Ceftriaxone Sodium (Rocephin/Ns 1 Gm/50 Ml) 1 gm in 50 mls @ 100 mls/hr IV Q24HR BIANKA PRN Reason: Protocol Last Admin: 05/10/17 09:07 Dose: 100 mls/hr Sodium Bicarbonate 150 meq/ (Dextrose) 1,150 mls @ 150 mls/hr IV DIRECT BIANKA Last Admin: 05/11/17 00:22 Dose: 150 mls/hr Magnesium Hydroxide (Milk Of Magnesia) 30 ml PO Q4H PRN PRN Reason: Constipation Megestrol Acetate (Megace) 40 mg PO QID BIANKA Last Admin: 05/10/17 22:56 Dose: 40 mg Ondansetron HCl (Zofran) 4 mg IV Q4H PRN PRN Reason: N/V unrelieved by Reglan Oxycodone/Acetaminophen (Percocet 5/325) 1 tab PO Q6H PRN PRN Reason: Pain, Moderate (4-6) Last Admin: 05/10/17 09:15 Dose: 1 tab Prednisone (Deltasone) 60 mg PO QDAY [facility] Last Admin: 05/10/17 09:01 Dose: 60 mg Sodium Bicarbonate (Sodium Bicarbonate) 650 mg PO TID [facility] Last Admin: 05/11/17 09:00 Dose: 650 mg Review of Systems Constitutional: no weight loss, no weight gain, no fever, no chills, no sweats Ears, nose, mouth and throat: ear pain (right), ear discharge (right), epistaxis , no sinus pressure, no sinus pain, no bleeding gums, no dental pain, no mouth pain, no dysphagia, no hoarseness Cardiovascular: chest pain, no orthopnea, no palpitations, no rapid/irregular heart beat, no edema, no syncope, no lightheadedness, no shortness of breath, no dyspnea on exertion, no paroxysmal nocturnal dyspnea, no high blood pressure , no leg edema, no decreased exercise tolerance Respiratory: no cough, no congestion, no wheezing, no pain on inspiration Gastrointestinal: no abdominal pain, no nausea, no vomiting, no diarrhea, no constipation, no change in bowel habits, no hematemesis, no BRBPR, no melena, no hematochezia Genitourinary Female: no pelvic pain, no flank pain, no menorrhagia, no dysuria , no urinary frequency Musculoskeletal: no neck stiffness, no neck pain, no shooting arm pain, no arm numbness/tingling, no low back pain, no shooting leg pain, no leg numbness/ tingling, no redness of joints Integumentary: no rash, no pruritis, no redness, no sores, no wounds Neurological: no head injury, no paralysis, no weakness, no parathesias, no numbness, no tingling, no seizures, no syncope Psychiatric: no anxiety Endocrine: no cold intolerance, no heat intolerance Hematologic/Lymphatic: no easy bruising, no easy bleeding, no lymphadenopathy Allergic/Immunologic: no urticaria, no wheezing, no persistent infections, no angioedema Physical Examination Vital Signs Temp Pulse Resp BP Pulse Ox 98 F 129 H 20 100/70 100 05/08/17 17:19 05/08/17 17:19 05/08/17 17:19 05/08/17 17:19 05/08/17 17:19 General appearance: no acute distress HEENT: Positive: PERRL, Normocephaly, Mucus Membranes Moist Neck: Positive: neck supple, trachea midline Cardiac: Positive: Reg Rate and Rhythm, S1/S2 Lungs: Positive: clear to auscultation Neuro: Positive: Grossly Intact, Cranial Nerve 2-12 Intact Abdomen: Positive: Unremarkable, Soft, Active Bowel Sounds. Negative: Tender Skin: Positive: Clear. Negative: Rash, Wound Musculoskeletal: No Fluid Collection, No Pain, Normal Range of Motion Extremities: Absent: edema Results 05/10/17 16:41 05/10/17 19:32 Cardiac Enzymes 05/10/17 Range/Units 19:32 CK-MB (CK-2) 6.6 H (0.0-4.0) ng/mL CBC 05/10/17 Range/Units 16:41 Hgb 6.1 L (10.1-14.3) gm/dl Hct 19.1 L* (30.3-42.9) % Comprehensive Metabolic Panel 05/10/17 Range/Units 19:32 Sodium 140 (137-145) mmol/L Potassium 4.5 (3.6-5.0) mmol/L Chloride 112.6 H (98-107) mmol/L Carbon Dioxide 15 L (22-30) mmol/L BUN 80 H (7-17) mg/dL Creatinine 2.4 H (0.7-1.2) mg/dL Glucose 144 H (65-100) mg/dL Calcium 7.0 L (8.4-10.2) mg/dL - Imaging and Cardiology Echo: pending EKG: report reviewed, image reviewed EKG interpretations - Telemetry EKG Rhythm: Sinus Rhythm - EKG Sinus rhythms and dysrhythmias: sinus rhythm Assessment and Plan Assessment: SLE flare Severe anemia - PRBC tx per primary; stool occult blood pending Acute renal failure - ? lupus nephritis; nephrology following and for renal biopsy once UTI treated. Chest pain - atypical; recurrent for the past several years; ECG with NAF Elevated troponin Acute cystitis Bilateral otitis media - ID consultation pending Plan: Obtain echo. Cont to trend Veronica. Assessment and plan reviewed with pt at bedside. The patient has been seen in conjunction with Dr. Medina who agrees with the assessment and plan of care.
[2017-05-11] MEDS: ROCEPHIN/NS 1 GM/50 ML 1 GM/50 ML BAG IV SCH (10:30)
[2017-05-11] MEDS: MEGACE PO SCH ×4 (10:30→21:50)
[2017-05-11] MEDS: DELTASONE PO SCH (10:30)
--- NOTE | 2017-05-11 10:56 | Progress Note ---
Assessment and Plan Acute Renal failure possible pre renal/ATN vs Lupus nephritis: Unknown CKD: -BMP is pending this AM -Complement levels, DsDNA and MALU ordered, results are pending. will add ANCA, anti GBM, HIV, HCV and HBV -will repeat UA and order urine cultures. blood cultures are NTD -IVF switched to Nahco3 150 meq @ 150 cc/h -blood smear and LDH order to r/o hemolysis process -kidney biopsy will be considered after lupus panel and secondary GN work up and vasculitis are resulted with negative urine and blood cultures. in order to do the biopsy Hgb will need >10g/dl with stable platelet count, consider hematology eval, she may benefit from steroid pulse to stabilize blood count. I explained to the patient risk of the kidney biopsy including but limited to bleeding, infection, worsening kidney function and . I also explained the risk of immunosupressive therapy (increased risk of solid and hematologic malignancy, increased risk of opportunistic infections, fetus deformity ). if started on immunosuppressive therapy she will need at least 6 months of induction therapy followed by 1-2 years of maintenance therapy, during that time she will need to be evaluated and followed by rheumatology . Anemia of chronic disease possible due to lupus: Leukopenia: Thrombocytopenia: -Pancytopenia likely from Lupus -consider hematology consulted for possible need for steroids pulse -was not transfused last night due to antibodies from previous transfusions Metabolic acidosis: -bicarb gtt as above Urinary tract infection: -On Rocephin -Urine and blood Cx are pending Lupus: -On steroids -she needs rheumatology evaluation -Per primary Acute otitis media: -On Abx Subjective Date of service: 05/11/17 Principal diagnosis: renal failure Interval history: weakness is improving Objective - Vital Signs Vital signs: Vital Signs - 12hr 05/11/17 05/11/17 05/11/17 00:34 01:44 04:20 Temperature 97.4 F L Pulse Rate 64 66 Respiratory 16 18 18 Rate Blood Pressure 97/66 101/61 Blood Pressure [Left] O2 Sat by Pulse 100 99 Oximetry 05/11/17 05/11/17 08:44 09:51 Temperature 98.3 F 98.3 F Pulse Rate 73 69 Respiratory 16 Rate Blood Pressure 100/63 Blood Pressure 100/63 [Left] O2 Sat by Pulse 100 100 Oximetry - General Appearance General appearance: well-developed, well-nourished, appears stated age EENT: ATNC, PERRL, mucous membranes moist Neck: no JVD, no carotid bruit Respiratory: Present: Clear to Ascultation. Absent: Rales, Ronchi Cardiology: regular, S1S2 Gastrointestinal: normoactive bowel sounds, no tenderness, no distended, no guarding Integumentary: no rash, warm and dry Neurologic: no focal deficit, no asterixis, alert and oriented x3 Musculoskeletal: other (no edema in BLE) Psychiatric: mood/affect appropriate, cooperative - Lab 05/10/17 16:41 05/10/17 19:32 Most recent lab results Calcium 7.0 mg/dL (8.4-10.2) L 05/10/17 19:32 Phosphorus 5.80 mg/dL (2.5-4.5) H 05/09/17 13:19 Magnesium 2.40 mg/dL (1.7-2.3) H 05/09/17 13:19 Urine Creatinine 62.5 mg/dL (0.1-20.0) H 05/09/17 02:36 Urine Sodium 30 mmol/L 05/09/17 02:36
[2017-05-11 13:41] LABS: HIV-1 Antigen p24 Non React (Non React); HIVR-1/2 Ab Non React (Non React)
[2017-05-11 13:43] LABS: Creatine Kinase MB 6.1 ng/mL (0.0-4.0)
[2017-05-11 13:47] LABS: Smear for Schistocytes Rare
--- NOTE | 2017-05-11 14:52 | Consultation ---
History of Present Illness - Reason for Consult Consult date: 05/11/17 [place] otitis Requesting physician: JAGUAR CAMPBELL - History of Present Illness 26 years old female with history of lupus and anemia, admitted on 05/08/2017 due to one-week history of generalized weakness, poor po intake and bilateral ear pain and 3 day history of ear drainage. Patient denies any fever, chills nausea or vomiting. Patient reports that she had a runny nose and a sore throat 2 weeks ago. She was hospitalized [facility] overnight last week for suspected lupus flare up, prescribed prednisone upon discharge. The emergency room, initial temperature was 98, heart rate 129, blood pressure 100/70. Initial white count was 4.6. Hemoglobin 8.1. Platelets 86. Creatinine 4. AST 138. ALT 66. UA 22 white blood cells but no leukocyte esterase. Renal ultrasound showed bilateral echogenicity no stones no hydronephrosis. Chest x-ray was negative. Current Antimicrobials: Ceftriaxone 05/09 Previous Antimicrobials: Microbiology: Blood cultures: 05/10 ngtd Urine cultures: Past History Past Medical History: anemia, other (lupus) Medications and Allergies Allergies Allergy/AdvReac Type Severity Reaction Status Date / Time No Known Allergies Allergy Unverified 08/17/15 16:18 Home Medications Medication Instructions Recorded Confirmed Last Taken Type No Known Home Medications [No 05/10/17 05/10/17 Unknown History Reported Home Medications] Active Meds: Active Medications Acetaminophen (Tylenol) 650 mg PO Q4H PRN PRN Reason: Pain MILD(1-3)/Fever >100.5/OLIVEIRA Bisacodyl (Dulcolax) 10 mg [place] QDAY PRN PRN Reason: Constipation unrelieved by MOM Ceftriaxone Sodium (Rocephin/Ns 1 Gm/50 Ml) 1 gm in 50 mls @ 100 mls/hr IV Q24HR BIANKA PRN Reason: Protocol Last Admin: 05/11/17 10:30 Dose: 100 mls/hr Sodium Bicarbonate 150 meq/ (Dextrose) 1,150 mls @ 150 mls/hr IV DIRECT BIANKA Last Admin: 05/11/17 00:22 Dose: 150 mls/hr Magnesium Hydroxide (Milk Of Magnesia) 30 ml PO Q4H PRN PRN Reason: Constipation Megestrol Acetate (Megace) 40 mg PO QID BIANKA Last Admin: 05/11/17 14:34 Dose: 40 mg Ondansetron HCl (Zofran) 4 mg IV Q4H PRN PRN Reason: N/V unrelieved by Reglan Oxycodone/Acetaminophen (Percocet 5/325) 1 tab PO Q6H PRN PRN Reason: Pain, Moderate (4-6) Last Admin: 05/10/17 09:15 Dose: 1 tab Prednisone (Deltasone) 60 mg PO [facility]DAY [facility] Last Admin: 05/11/17 10:30 Dose: 60 mg Sodium Bicarbonate (Sodium Bicarbonate) 650 mg PO TID [facility] Last Admin: 05/11/17 14:34 Dose: 650 mg Review of Systems All systems: negative (as per HPI rest neg) Physical Examination - Physical Exam Narrative exam: General appearance: Alert in NAD, conversant Eyes: anicteric sclerae, moist conjunctivae; no lid-lag; PERRLA HENT: Atraumatic; oropharynx clear with moist mucous membranes and no mucosal ulcerations/no oral thrush; normal hard and soft palate. +wellington erythematous TM with fluid Neck: Trachea midline; supple, no thyromegaly or lymphadenopathy Lungs: CTA, with normal respiratory effort and no intercostal retractions CV: RRR, no murmurs Abdomen: Soft, non-tender; no masses or hepatosplenomegaly Extremities: No peripheral edema or extremity lymphadenopathy Skin: Normal temperature, turgor and texture; no rash, ulcers or subcutaneous nodules Psych: Appropriate affect, alert and oriented to person, place and time. Neuro: alert and oriented x 3. Moving all extermities Lines: No CVL / PICC - Constitutional Vitals: Vital Signs Temp Pulse Resp BP Pulse Ox 98.3 F 64 14 100/63 100 05/11/17 09:51 05/11/17 11:00 05/11/17 10:00 05/11/17 09:51 05/11/17 10:00 Temperature -Last 24 Hours Temperature 98.3 F Temperature 98.3 F Temperature 97.4 F Temperature 97.2 F Temperature 97.2 F Results - Labs CBC & Chem 7: 05/10/17 16:41 05/10/17 19:32 Labs: Abnormal lab results 05/09/17 05/10/17 05/10/17 Range/Units 13:19 08:12 16:41 Hgb 6.1 L (10.1-14.3) gm/dl Hct 19.1 L* (30.3-42.9) % Chloride (98-107) mmol/L Carbon Dioxide (22-30) mmol/L BUN (7-17) mg/dL Creatinine (0.7-1.2) mg/dL Glucose (65-100) mg/dL Calcium (8.4-10.2) mg/dL Total Creatine Kinase (30-135) units/L CK-MB (CK-2) (0.0-4.0) ng/mL Troponin T (0.00-0.029) ng/mL Tot Complement (CH50) <10 L (31-60) U/mL Crossmatch See Detail 05/10/17 05/10/17 05/11/17 Range/Units 19:32 19:32 12:48 Hgb (10.1-14.3) gm/dl Hct (30.3-42.9) % Chloride 112.6 H (98-107) mmol/L Carbon Dioxide 15 L (22-30) mmol/L BUN 80 H (7-17) mg/dL Creatinine 2.4 H (0.7-1.2) mg/dL Glucose 144 H (65-100) mg/dL Calcium 7.0 L (8.4-10.2) mg/dL Total Creatine Kinase 280 H 212 H (30-135) units/L CK-MB (CK-2) 6.6 H 6.1 H (0.0-4.0) ng/mL Troponin T 0.096 H (0.00-0.029) ng/mL Tot Complement (CH50) (31-60) U/mL Crossmatch Assessment and Plan Assessment: 1) SIRS: Present on admission, manifested by tachycardia, hypotension. Etiology most likely bilateral otitis media. 2) Bilateral otitis media 3) MARITZA 4) Anemia 5) Lupus Plan: -follow-up blood cultures -ENT eval as an outpatient -CRP/C3/C4 -stop ceftriaxone -start cefepime to cover GPC and GNB including Pseudomonas Thank you Dr Campbell for your consultation, will follow up with you. Mary Earl MD Infectious Diseases Specialist [facility] M [phone] O [phone]
[2017-05-11] MEDS ORDERED: MAXIPIME/NS 2 GM/100 ML 2 GM/100 ML BAG IV SCH (16:00)
[2017-05-11] MEDS ORDERED: ANCEF/NS 1 GM/50 ML 1 GM/50 ML BAG IV SCH (16:00)
[2017-05-11 17:33] LABS: Bilirubin,Urine NEG (Negative); Blood,Urine MOD (Negative); Ketones,Urine NEG (Negative); Leukocyte Esterase,Urine NEG (Negative); Nitrite,Urine NEG (Negative); Urobilinogen,Urine < 2.0 mg/dL (<2.0)
[2017-05-11] MEDS: TYLENOL PO PRN (18:01)
--- NOTE | 2017-05-11 19:14 | XRay Report ---
FINAL REPORT EXAM: XR CHEST 1V AP HISTORY: back pain during blood transfusion TECHNIQUE: upright single view chest PRIORS: None. FINDINGS: Cardiac and mediastinal contours are unremarkable. No focal pulmonary infiltrate is identified. No pleural fluid collection seen. Pulmonary vasculature is unremarkable. IMPRESSION: Negative single-view chest
[2017-05-11 23:20] LABS: Hematocrit 22.9 % (30.3-42.9); Hemoglobin 7.7 gm/dl (10.1-14.3)
[2017-05-12] MEDS: MAXIPIME/NS 1 GM/100 ML 1 GM/100 ML BAG IV SCH ×3 (05:00→20:05)
[2017-05-12] MEDS: SODIUM BICARBONATE 150 MEQ in D5W 1,000 ML IV SCH (06:00)
[2017-05-12 06:26] LABS: Basophils % (Auto) 0.1 % (0.0-1.8); Hematocrit 22.6 % (30.3-42.9); Hemoglobin 7.9 gm/dl (10.1-14.3); Mean Corpuscular HGB Conc 35 % (30-34); Mean Corpuscular Hemoglobin 29 pg (28-32); Mean Corpuscular Volume 84 fl (79-97)
[2017-05-12 06:40] LABS: Platelet Count 56 K/mm3 (140-440)
[2017-05-12 06:41] LABS: Calcium 7.2 mg/dL (8.4-10.2); Chloride 112.8 mmol/L (98-107); Potassium 3.9 mmol/L (3.6-5.0)
[2017-05-12 06:44] LABS: Calcium 7.1 mg/dL (8.4-10.2); Phosphorous 3.3 mg/dL (2.5-4.5); Potassium 3.9 mmol/L (3.6-5.0)
--- NOTE | 2017-05-12 09:18 | Progress Note ---
Assessment and Plan Assessment and plan: This is a 26 year old female with PMH of Lupus (diagnosed in 2008) and anemia who presented to [facility] today with complaints of generalized weakness, fatigue, nosebleed (woke up with nosebleed), decreased appetite, and bilateral ear pain with drainage for the past 3-4 days. Patient states she was hospitalized [facility] overnight last week for suspected lupus flare up, prescribed prednison upon discharge. Patient also states she had an infection (not sure of source) when she was at [place], no antibiotics prescribed. Acute kidney injury -improving down to 1.7 - ATN versus lupus nephritis - Nephrology consulted - Creatinine improved from 4-2.6 to morning - Plan per nephrology for renal biopsy once UTI treated - Patient was given IV fluids and steroids Severe anemia - Improved with transfusion ordered - Iron def noted also - Patient with multiple antibodies delaying transfusion - ?Autoimmune, await Hemeonc input - occult blood negative, avoid all antiplatelet medications at this time SLE flareup - Continue steroids Bilateral otitis media - Continue IV antibiotic -Cefriaxone stopped and patient started on cefepime to cover for GPC AND GNB including pseudomonas -ID consult requested and input noted -ENT strongly encouraged out patient, and patient verablized understanding SIRS secondary to Acute Cystitis-POA - Continue Abx, check urine culture Type 2 SC secondary to MARITZA - Patient denies any chest pain Decreased appetite - megestrol ordered - Nutrition consult, Check Albumin level DVT prophylaxis - SCDs because of severe anemia Disposition - Continue inpatient care CODE STATUS Full Discussed with patient, nephrology and Hematology Discharge in 24-48 hours if ok with ID, NEPRHOLOGY AND HEMONC History Interval history: patient seen and examined in no acute distress. reports improvement in hearing, otherwise reports sleepy due to being possible insomnia Hospitalist Physical - Physical exam Narrative exam: VITAL SIGNS: Reviewed. GENERAL: The patient appeared well nourished and normally developed. Vital signs as documented. HEAD: No signs of head trauma. EYES: Pupils are equal. Extraocular motions intact. EARS: Hearing intact. MOUTH: Oropharynx is normal. NECK: No adenopathy, no JVD. CHEST: Chest with clear breath sounds bilaterally. No wheezes, rales, or rhonchi. CARDIAC: Regular rate and rhythm. S1 and S2, without murmurs, gallops, or rubs. VASCULAR: No Edema. Peripheral pulses normal and equal in all extremities. ABDOMEN: Soft, without detectable tenderness. No sign of distention. No rebound or guarding, and no masses palpated. Bowel Sounds normal. MUSCULOSKELETAL: Good range of motion of all major joints. Extremities without clubbing, cyanosis or edema. NEUROLOGIC EXAM: Alert and oriented x 3. No focal sensory or strength deficits. Speech normal. Follows commands. PSYCHIATRIC: Mood normal. SKIN: No rash or lesions. - Constitutional Vitals: Temp Pulse Resp BP Pulse Ox 97.4 F L 47 L 16 142/91 96 05/12/17 08:00 05/12/17 08:00 05/12/17 08:00 05/12/17 08:00 05/12/17 08:00 General appearance: Present: no acute distress Results - Labs CBC & Chem 7: 05/13/17 05:17 05/12/17 04:46 Labs: Laboratory Last Values WBC 5.0 K/mm3 (4.5-11.0) 05/12/17 04:46 RBC 2.70 M/mm3 (3.65-5.03) L 05/12/17 04:46 Hgb 7.9 gm/dl (10.1-14.3) L 05/12/17 04:46 Hct 22.6 % (30.3-42.9) L 05/12/17 04:46 MCV 84 fl (79-97) 05/12/17 04:46 MCH 29 pg (28-32) 05/12/17 04:46 MCHC 35 % (30-34) H 05/12/17 04:46 RDW 18.0 % (13.2-15.2) H 05/12/17 04:46 Plt Count 56 K/mm3 (140-440) L 05/12/17 04:46 Lymph % (Auto) 5.7 % (13.4-35.0) L 05/12/17 04:46 [place] % (Auto) 7.2 % (0.0-7.3) 05/12/17 04:46 Eos % (Auto) 0.0 % (0.0-4.3) 05/12/17 04:46 Baso % (Auto) 0.1 % (0.0-1.8) 05/12/17 04:46 Lymph # 0.3 K/mm3 (1.2-5.4) L 05/12/17 04:46 [place] # 0.4 K/mm3 (0.0-0.8) 05/12/17 04:46 Eos # 0.0 K/mm3 (0.0-0.4) 05/12/17 04:46 Baso # 0.0 K/mm3 (0.0-0.1) 05/12/17 04:46 Seg Neutrophils % 87.0 % (40.0-70.0) H 05/12/17 04:46 Seg Neutrophils # 4.4 K/mm3 (1.8-7.7) 05/12/17 04:46 POC ABG pH 7.313 (7.35-7.45) L 05/09/17 19:00 POC ABG pCO2 29.3 (35-45) L 05/09/17 19:00 POC ABG pO2 103 (80-105) 05/09/17 19:00 POC ABG HCO3 14.9 05/09/17 19:00 POC ABG Total CO2 16 05/09/17 19:00 POC ABG O2 Sat 97 05/09/17 19:00 POC ABG Base Excess -11 05/09/17 19:00 FiO2 21 % 05/09/17 19:00 Sodium 144 mmol/L (137-145) 05/12/17 04:46 Potassium 3.9 mmol/L (3.6-5.0) 05/12/17 04:46 Chloride 113.0 mmol/L (98-107) H 05/12/17 04:46 Carbon Dioxide 20 mmol/L (22-30) L 05/12/17 04:46 Anion Gap 15 mmol/L 05/12/17 04:46 BUN 68 mg/dL (7-17) H 05/12/17 04:46 Creatinine 1.7 mg/dL (0.7-1.2) H 05/12/17 04:46 Estimated GFR 44 ml/min 05/12/17 04:46 BUN/Creatinine Ratio 40 % 05/12/17 04:46 Glucose 163 mg/dL (65-100) H 05/12/17 04:46 Calcium 7.1 mg/dL (8.4-10.2) L 05/12/17 04:46 Phosphorus 3.30 mg/dL (2.5-4.5) 05/12/17 04:46 Magnesium 2.40 mg/dL (1.7-2.3) H 05/09/17 13:19 Iron 98 ug/dL (37-170) 05/12/17 04:46 TIBC 170 mcg/dL (250-450) L 05/12/17 04:46 Total Bilirubin 0.30 mg/dL (0.1-1.2) 05/08/17 17:41 AST 133 units/L (5-40) H 05/08/17 17:41 ALT 66 units/L (7-56) H 05/08/17 17:41 Alkaline Phosphatase 60 units/L (35-129) 05/08/17 17:41 Lactate Dehydrogenase 877 units/L (91-180) H 05/12/17 04:46 Total Creatine Kinase 212 units/L (30-135) H 05/11/17 12:48 CK-MB (CK-2) 6.1 ng/mL (0.0-4.0) H 05/11/17 12:48 CK-MB (CK-2) Rel Index 2.8 (0-4) 05/11/17 12:48 Troponin T 0.096 ng/mL (0.00-0.029) H 05/11/17 12:48 C-Reactive Protein 0.10 mg/dL (0.00-1.30) 05/11/17 16:07 Total Protein 6.1 g/dL (6.3-8.2) L 05/08/17 17:41 Albumin 2.5 g/dL (3.9-5) L 05/08/17 17:41 Albumin/Globulin Ratio 0.7 % 05/08/17 17:41 PTH Intact 117.2 pg/mL (15-65) H 05/09/17 13:19 Urine Color Yellow (Yellow) 05/11/17 10:43 Urine Turbidity Clear (Clear) 05/11/17 10:43 Urine pH 6.0 (5.0-7.0) 05/11/17 10:43 Ur Specific [place] 1.010 (1.003-1.030) 05/11/17 10:43 Urine Protein 100 mg/dl mg/dL (Negative) 05/11/17 10:43 Urine Glucose (UA) Neg mg/dL (Negative) 05/11/17 10:43 Urine Ketones Neg mg/dL (Negative) 05/11/17 10:43 Urine Blood Mod (Negative) 05/11/17 10:43 Urine Nitrite Neg (Negative) 05/11/17 10:43 Ur Reducing Substances Not Reportable 05/08/17 Unknown Urine Bilirubin Neg (Negative) 05/11/17 10:43 Urine Ictotest Not Reportable 05/08/17 Unknown Urine Urobilinogen < 2.0 mg/dL (<2.0) 05/11/17 10:43 Ur Leukocyte Esterase Neg (Negative) 05/11/17 10:43 Urine WBC (Auto) 5.0 /HPF (0.0-6.0) 05/11/17 10:43 Urine RBC (Auto) 10.0 /HPF (0.0-6.0) 05/11/17 10:43 U Epithel Cells (Auto) 5.0 /HPF (0-13.0) 05/11/17 10:43 Urine Bacteria (Auto) 2+ /HPF (Negative) 05/08/17 Unknown Urine Mucus Few /HPF 05/08/17 Unknown Urine Eosinophils None seen (None Seen) 05/11/17 Unknown Urine Osmolality 344 Mosm/kg 05/09/17 02:36 Urine Creatinine 44.1 mg/dL (0.1-20.0) H 05/11/17 10:43 Protein/Creatinin Ratio 2.61 05/11/17 10:43 Urine Sodium 30 mmol/L 05/09/17 02:36 Urine Total Protein 115 mg/dL (5-11.8) H 05/11/17 10:43 Urine HCG, Qual Negative (Negative) 05/08/17 Unknown Double Strand DNA Ab 104 IU/mL (<=4) H 05/09/17 13:19 Tot Complement (CH50) <10 U/mL (31-60) L 05/09/17 13:19 Hep Bs Antigen Non-reactive (Negative) 05/11/17 12:48 Hepatitis C Antibody Non-reactive (NonReactive) 05/11/17 12:48 HIV 1&2 Antibody Rapid Non react (Non React) 05/11/17 12:48 HIV P24 Antigen Non react (Non React) 05/11/17 12:48 Schistocytes Smear Rare 05/11/17 12:48 Blood Type AB POSITIVE 05/10/17 08:12 Antibody Screen Positive 05/10/17 08:12 FRANDY Antibody Screen Positive 05/10/17 08:12 Antibody Identification Anti-IH Warm Auto Antibody 05/10/17 08:12 Antibody Identification Anti-IH Warm Auto Antibody 05/10/17 08:12 Direct Antiglob Test Positive 05/10/17 08:12 ABDIRAHMAN (IgG-AHG) Positive 05/10/17 08:12 ABDIRAHMAN, Poly Interpret Positive 05/10/17 08:12 ABDIRAHMAN, Anti-C3 Negative 05/10/17 08:12 Crossmatch See Detail 05/10/17 08:12
--- NOTE | 2017-05-12 09:40 | Progress Note ---
Assessment and Plan Assessment: SLE flare Severe anemia / thrombocytopenia - PRBC tx per primary; stool occult blood pending Acute renal failure - ? lupus nephritis; nephrology following and for renal biopsy once UTI treated. Chest pain - atypical; currently resolved; recurrent for the past several years ; ECG with NAF Elevated troponin - flat Acute cystitis Bilateral otitis media - ID following Plan: Echo reviewed - EF 55-60%, LA mildly dilated, mild to mod TR, no pericardial effusion. Currently stable cardiac status. Nothing further to add from cardiac perspective at this time. Will follow PRN. Assessment and plan reviewed with pt at bedside. The patient has been seen in conjunction with Dr. Medina who agrees with the assessment and plan of care. Subjective Date of service: 05/12/17 Principal diagnosis: renal failure Interval history: Pt resting comfortably in bed, denies any current cardiac complaints. Objective Last Vital Signs Temp 97.4 F L 05/12/17 08:00 Pulse 47 L 05/12/17 08:00 Resp 16 05/12/17 08:00 BP 142/91 05/12/17 08:00 Pulse Ox 96 05/12/17 08:00 - Physical Examination General: Appears Well HEENT: Positive: PERRL, Normocephaly, Mucus Membranes Moist Neck: Positive: neck supple, trachea midline Cardiac: Positive: Reg Rate and Rhythm, S1/S2 Lungs: Positive: clear to auscultation Neuro: Positive: Grossly Intact, Cranial Nerve 2-12 Intact Abdomen: Positive: Unremarkable, Soft, Active Bowel Sounds. Negative: Tender Skin: Positive: Clear. Negative: Rash, Wound Musculoskeletal: No Fluid Collection, No Pain, Normal Range of Motion Extremities: Absent: edema - Labs and Meds Cardiac Enzymes 05/11/17 05/12/17 Range/Units 12:48 04:46 Lactate Dehydrogenase 877 H (91-180) units/L CK-MB (CK-2) 6.1 H (0.0-4.0) ng/mL CBC 05/11/17 05/12/17 Range/Units 23:14 04:46 WBC 5.0 (4.5-11.0) K/mm3 RBC 2.70 L (3.65-5.03) M/mm3 Hgb 7.7 L 7.9 L (10.1-14.3) gm/dl Hct 22.9 L 22.6 L (30.3-42.9) % Plt Count 56 L (140-440) K/mm3 Lymph # 0.3 L (1.2-5.4) K/mm3 [place] # 0.4 (0.0-0.8) K/mm3 Eos # 0.0 (0.0-0.4) K/mm3 Baso # 0.0 (0.0-0.1) K/mm3 Comprehensive Metabolic Panel 05/12/17 05/12/17 Range/Units 04:46 04:46 Sodium 145 144 (137-145) mmol/L Potassium 3.9 3.9 (3.6-5.0) mmol/L Chloride 112.8 H 113.0 H (98-107) mmol/L Carbon Dioxide 19 L 20 L (22-30) mmol/L BUN 66 H 68 H (7-17) mg/dL Creatinine 1.7 H 1.7 H (0.7-1.2) mg/dL Glucose 167 H 163 H (65-100) mg/dL Calcium 7.2 L 7.1 L (8.4-10.2) mg/dL - Imaging and Cardiology EKG: report reviewed, image reviewed Echo: pending - EKG Sinus rhythms and dysrhythmias: sinus rhythm
--- NOTE | 2017-05-12 10:07 | Progress Note ---
Assessment and Plan - Patient Problems (1) Acute renal failure Current Visit: Yes Status: Acute Qualifiers: Acute renal failure type: A Plan to address problem: Renal function reviewed. Serum creatinine trend down to 1.7 today from 2.4 yesterday Blood smear result-rare GN work-up in progress Repeat Urine culture in progress On IVF with Sodium Bicarbonate 150 meq @ 150 ml/hr Will consider renal biopsy once GN work-up is complete and H/H improves Renally dose medications Avoid Nephrotoxic agents Obtain daily weights Monitor I/O's Monitor renal function closely (2) Anemia Current Visit: Yes Status: Acute Qualifiers: Anemia type: A Iron deficiency anemia type: I Vitamin B12 deficiency anemia type: V Folate deficiency anemia type: F Bone marrow failure anemia type: B Hemolytic anemia type: H Other causes of anemia: O Chronic kidney disease stage: C Plan to address problem: Hematology consulted- Dr. Kilgore (3) Metabolic acidosis Current Visit: Yes Status: Acute Plan to address problem: On bicarb drip (4) Acute otitis media Current Visit: Yes Status: Acute Qualifiers: Otitis media type: O Laterality: L Recurrence: R Spontaneous tympanic membrane rupture: S Plan to address problem: On IV Cefepime per ID (5) Lupus Current Visit: No Status: Acute Qualifiers: Systemic lupus erythematosus type: S Systemic lupus erythematosus organ involvement: S Plan to address problem: On Prednisone 60 mg po daily Subjective Date of service: 05/12/17 Principal diagnosis: renal failure Interval history: Patient seen lying in bed. No acute events overnight. Objective - Vital Signs Vital signs: Vital Signs - 12hr 05/12/17 05/12/17 05/12/17 00:24 03:00 04:37 Temperature 97.3 F L 97.3 F L Pulse Rate 45 L 49 L 65 Respiratory 18 16 Rate Blood Pressure 130/86 118/63 Blood Pressure [Left] O2 Sat by Pulse 100 100 Oximetry 05/12/17 08:00 Temperature 97.4 F L Pulse Rate 47 L Respiratory 16 Rate Blood Pressure Blood Pressure 142/91 [Left] O2 Sat by Pulse 96 Oximetry - General Appearance General appearance: well-developed, appears stated age EENT: ATNC, PERRL, hearing intact, vision intact Neck: no JVD, supple Respiratory: Present: Clear to Ascultation Cardiology: bradycardia, S1S2 Gastrointestinal: normoactive bowel sounds Integumentary: warm and dry Neurologic: alert and oriented x3 Musculoskeletal: no deformities, no erythema, no cyanosis, no clubbing Psychiatric: cooperative - Lab 05/12/17 04:46 05/12/17 04:46 Most recent lab results Calcium 7.1 mg/dL (8.4-10.2) L 05/12/17 04:46 Phosphorus 3.30 mg/dL (2.5-4.5) 05/12/17 04:46 Magnesium 2.40 mg/dL (1.7-2.3) H 05/09/17 13:19 Urine Creatinine 44.1 mg/dL (0.1-20.0) H 05/11/17 10:43 Urine Sodium 30 mmol/L 05/09/17 02:36 Urine Total Protein 115 mg/dL (5-11.8) H 05/11/17 10:43
[2017-05-12] MEDS: FOLVITE PO SCH (10:57)
[2017-05-12] MEDS: SODIUM BICARBONATE PO SCH ×3 (10:57→21:25)
[2017-05-12] MEDS: DELTASONE PO SCH (10:57)
[2017-05-12] MEDS: MEGACE PO SCH ×3 (10:57→21:25)
--- NOTE | 2017-05-12 11:00 | Progress Note ---
Assessment and Plan Assessment: 1) SIRS: better. Etiology most likely bilateral otitis media. CRP=0.1. HIV neg. 2) Bilateral otitis media 3) MARITZA - better 4) Anemia / thrombocytopenia 5) Lupus Plan: -ENT eval as an outpatient -f/u C3/C4 -continue cefepime to cover GPC and GNB including Pseudomonas -upon discharge will do levaquin 750 mg po q48 hours total [address] Robins for your consultation, will follow up with you. Mary Earl MD Infectious Diseases Specialist [facility] [id number] [phone] Subjective Date of service: 05/12/17 Principal diagnosis: renal failure Interval history: Feels better, no fever, no ear pain Current Antimicrobials: cefepime 05/11 Previous Antimicrobials: Ceftriaxone 05/09 Microbiology: Blood cultures: 05/10 ngtd Urine cultures: Objective - Exam Narrative Exam: General appearance: Alert in NAD, conversant Eyes: anicteric sclerae, moist conjunctivae; no lid-lag; PERRLA HENT: Atraumatic; oropharynx clear with moist mucous membranes and no mucosal ulcerations/no oral thrush; normal hard and soft palate. +wellington erythematous TM with fluid Neck: Trachea midline; supple, no thyromegaly or lymphadenopathy Lungs: CTA, with normal respiratory effort and no intercostal retractions CV: RRR, no murmurs Abdomen: Soft, non-tender; no masses or hepatosplenomegaly Extremities: No peripheral edema or extremity lymphadenopathy Skin: Normal temperature, turgor and texture; no rash, ulcers or subcutaneous nodules Psych: Appropriate affect, alert and oriented to person, place and time. Neuro: alert and oriented x 3. Moving all extermities Lines: No CVL / PICC - Constitutional Vitals: Vital Signs Temp Pulse Resp BP Pulse Ox 97.4 F L 47 L 16 142/91 96 05/12/17 08:00 05/12/17 08:00 05/12/17 08:00 05/12/17 08:00 05/12/17 08:00 Temperature -Last 24 Hours Temperature 97.4 F Temperature 97.3 F Temperature 97.3 F Temperature 97.8 F Temperature 97.8 F Temperature 97.7 F Temperature 97.3 F Temperature 97.3 F Temperature 97.4 F Temperature 97.3 F Temperature 97.8 F - Labs CBC & Chem 7: 05/12/17 04:46 05/12/17 04:46 Labs: Abnormal lab results 05/09/17 05/09/17 05/10/17 Range/Units 13:19 13:19 08:12 RBC (3.65-5.03) M/mm3 Hgb (10.1-14.3) gm/dl Hct (30.3-42.9) % MCHC (30-34) % RDW (13.2-15.2) % Plt Count (140-440) K/mm3 Lymph % (Auto) (13.4-35.0) % Lymph # (1.2-5.4) K/mm3 Seg Neutrophils % (40.0-70.0) % Chloride (98-107) mmol/L Carbon Dioxide (22-30) mmol/L BUN (7-17) mg/dL Creatinine (0.7-1.2) mg/dL Glucose (65-100) mg/dL Calcium (8.4-10.2) mg/dL TIBC (250-450) mcg/dL Lactate Dehydrogenase (91-180) units/L Total Creatine Kinase (30-135) units/L CK-MB (CK-2) (0.0-4.0) ng/mL Troponin T (0.00-0.029) ng/mL Urine Creatinine (0.1-20.0) mg/dL Urine Total Protein (5-11.8) mg/dL Double Strand DNA Ab 104 H (<=4) IU/mL Tot Complement (CH50) <10 L (31-60) U/mL Crossmatch See Detail 05/11/17 05/11/17 05/11/17 Range/Units 10:43 12:48 23:14 RBC (3.65-5.03) M/mm3 Hgb 7.7 L (10.1-14.3) gm/dl Hct 22.9 L (30.3-42.9) % MCHC (30-34) % RDW (13.2-15.2) % Plt Count (140-440) K/mm3 Lymph % (Auto) (13.4-35.0) % Lymph # (1.2-5.4) K/mm3 Seg Neutrophils % (40.0-70.0) % Chloride (98-107) mmol/L Carbon Dioxide (22-30) mmol/L BUN (7-17) mg/dL Creatinine (0.7-1.2) mg/dL Glucose (65-100) mg/dL Calcium (8.4-10.2) mg/dL TIBC (250-450) mcg/dL Lactate Dehydrogenase (91-180) units/L Total Creatine Kinase 212 H (30-135) units/L CK-MB (CK-2) 6.1 H (0.0-4.0) ng/mL Troponin T 0.096 H (0.00-0.029) ng/mL Urine Creatinine 44.1 H (0.1-20.0) mg/dL Urine Total Protein 115 H (5-11.8) mg/dL Double Strand DNA Ab (<=4) IU/mL Tot Complement (CH50) (31-60) U/mL Crossmatch 05/12/17 05/12/17 05/12/17 Range/Units 04:46 04:46 04:46 RBC 2.70 L (3.65-5.03) M/mm3 Hgb 7.9 L (10.1-14.3) gm/dl Hct 22.6 L (30.3-42.9) % MCHC 35 H (30-34) % RDW 18.0 H (13.2-15.2) % Plt Count 56 L (140-440) K/mm3 Lymph % (Auto) 5.7 L (13.4-35.0) % Lymph # 0.3 L (1.2-5.4) K/mm3 Seg Neutrophils % 87.0 H (40.0-70.0) % Chloride 112.8 H 113.0 H (98-107) mmol/L Carbon Dioxide 19 L 20 L (22-30) mmol/L BUN 66 H 68 H (7-17) mg/dL Creatinine 1.7 H 1.7 H (0.7-1.2) mg/dL Glucose 167 H 163 H (65-100) mg/dL Calcium 7.2 L 7.1 L (8.4-10.2) mg/dL TIBC 170 L (250-450) mcg/dL Lactate Dehydrogenase 877 H (91-180) units/L Total Creatine Kinase (30-135) units/L CK-MB (CK-2) (0.0-4.0) ng/mL Troponin T (0.00-0.029) ng/mL Urine Creatinine (0.1-20.0) mg/dL Urine Total Protein (5-11.8) mg/dL Double Strand DNA Ab (<=4) IU/mL Tot Complement (CH50) (31-60) U/mL Crossmatch
[2017-05-12] MEDS ORDERED: Fluarix Quad 2017-2018(36 MOS+ IM ONE (12:00)
[2017-05-12] MEDS ORDERED: PNEUMOVAX 23 IM ONE (12:00)
[2017-05-12 14:05] LABS: Reticulocyte % 2.14 % (0.78-2.58)
[2017-05-12 14:11] LABS: Alanine Aminotransferase 38 units/L (7-56); Albumin/Globulin Ratio 0.8 %; Alkaline Phosphatase 37 units/L (35-129); Bilirubin,Total < 0.20 mg/dL (0.1-1.2); Total Protein 4.6 g/dL (6.3-8.2)
[2017-05-12 14:13] LABS: Bilirubin,Direct < 0.2 mg/dL (0-0.2)
[2017-05-12 14:26] LABS: Erythrocyte Sedimentation Rate 84 mm/Hr (0-20)
[2017-05-12] MEDS: PERCOCET 5/325 PO PRN (16:21)
--- NOTE | 2017-05-13 04:04 | Consultation ---
REFERRING PHYSICIAN: Lam Estrella MD REASON FOR CONSULTATION: Anemia, thrombocytopenia. HISTORY OF PRESENT ILLNESS: The patient is a 26-year-old female with history of lupus since 2008. She has been on treatment since then with steroids and other medications that she does not remember the name of. She has not seen her manager cost in a while she says. She says her lupus does not flare up, but recently started having fevers with bilateral ear pain, decreased p.o. intake and was at [facility] overnight last week and was told she had lupus flare up and was sent home on prednisone. She presented to the hospital with continued weakness and her hemoglobin was found on admission to be 8.1 with platelets of 86,000. She did drop her hemoglobin to 6, white count 2.4, platelets 57,000 on the . She did receive 1 unit of packed RBCs and her hemoglobin has improved today to 7.9, white count 5.0, platelets are 56,000. She also was found to be in renal failure with a creatinine of 4, which has come down to 1.7 today. She is currently on steroids in the form of prednisone 60 mg a day. She also is on empiric antibiotics in the form of maxipime. Because of anemia, thrombocytopenia, hematology consult was called. The patient also has heavy periods and just got off her period. She has had blood transfusion in the past many years ago. She does feel better since her period. REVIEW OF SYSTEMS: Denies any headaches or confusion. PAST MEDICAL HISTORY: Positive since 2008. She has been on steroids off and on. SOCIAL HISTORY: She does not smoke or drink. PHYSICAL EXAMINATION: GENERAL: The patient is awake and oriented. HEENT: Unremarkable. CHEST: Clear. CARDIOVASCULAR: Regular rate and rhythm. ABDOMEN: Soft. EXTREMITIES: No clubbing, cyanosis or edema. LABORATORY DATA: As mentioned in history of present illness. Her LDH is 877. Her liver function tests on admission were AST 133, ALT 66. Her PTH was 117. ASSESSMENT: Pancytopenia, which seems to possibly be related to lupus flare-up in this patient. PLAN: We will go ahead and continue steroids and monitor counts. We will also transfuse as needed. We will start her on folic acid. We will also do liver function tests. We will monitor counts carefully. JOB# [id number] IDALMIS/INOCENCIO
[2017-05-13] MEDS: MAXIPIME/NS 1 GM/100 ML 1 GM/100 ML BAG IV SCH ×2 (04:30→21:36)
[2017-05-13] MEDS: PERCOCET 5/325 PO PRN (06:03)
[2017-05-13 06:34] LABS: Hematocrit 21.7 % (30.3-42.9); Hemoglobin 7.3 gm/dl (10.1-14.3); Mean Corpuscular HGB Conc 34 % (30-34); Mean Corpuscular Hemoglobin 28 pg (28-32); Mean Corpuscular Volume 84 fl (79-97); Red Cell Distribution Width 18.5 % (13.2-15.2); White Blood Count 4.6 K/mm3 (4.5-11.0)
[2017-05-13 06:37] LABS: Platelet Count 45 K/mm3 (140-440)
[2017-05-13 07:12] LABS: Calcium 7.1 mg/dL (8.4-10.2); Chloride 111.4 mmol/L (98-107); Phosphorous 2.5 mg/dL (2.5-4.5); Potassium 3.5 mmol/L (3.6-5.0)
[2017-05-13 07:26] LABS: Basophils % (Manual) 0 % (0.0-1.8); Blastocytes % (Manual) 0 %; Eosinophils % (Manual) 0 % (0.0-4.3)
[2017-05-13 07:27] LABS: Anisocytosis 1+; Helmet Cells Few; Microcytosis 1+; Poikilocytosis 1+
[2017-05-13 07:28] LABS: Basophilic Stippling Rare; Diff Status Complete; Large Platelets Few; Ovalocytes 2+; Platelet Estimate Appears Decreased; Tear Drop Cells Rare
[2017-05-13] MEDS: SODIUM BICARBONATE PO SCH (08:47)
[2017-05-13] MEDS: SODIUM BICARBONATE 150 MEQ in D5W 1,000 ML IV SCH (08:48)
[2017-05-13] MEDS: MEGACE PO SCH ×5 (10:03→21:36)
--- NOTE | 2017-05-13 11:00 | Progress Note ---
Assessment and Plan Assessment: 1) SIRS: better. Etiology most likely bilateral otitis media. CRP=0.1. HIV neg. 2) Bilateral otitis media 3) MARITZA - better 4) Anemia / thrombocytopenia from lupus 5) Lupus with very low C3/C4 ? lupus flare 6) Oral candidiasis Plan: -ENT eval as an outpatient -continue cefepime to cover GPC and GNB including Pseudomonas -upon discharge will do levaquin 750 mg po q48 hours total 10 days -add nystatin swish and swallow for [address] navas for your consultation, will follow up with you. Mary Earl MD Infectious Diseases Specialist [facility] ([facility]) M [phone] O [phone] Subjective Date of service: 05/13/17 Principal diagnosis: renal failure Interval history: Feels better, no fever, no ear pain Current Antimicrobials: cefepime 05/11 Previous Antimicrobials: Ceftriaxone 05/09 Microbiology: Blood cultures: 05/10 ngtd Urine cultures: Objective - Exam Narrative Exam: General appearance: Alert in NAD, conversant Eyes: anicteric sclerae, moist conjunctivae; no lid-lag; PERRLA HENT: Atraumatic; oropharynx +thrush. +wellington erythematous TM with fluid Neck: Trachea midline; supple, no thyromegaly or lymphadenopathy Lungs: CTA, with normal respiratory effort and no intercostal retractions CV: RRR, +murmurs Abdomen: Soft, non-tender; no masses or hepatosplenomegaly Extremities: No peripheral edema or extremity lymphadenopathy Skin: Normal temperature, turgor and texture; no rash, ulcers or subcutaneous nodules Psych: Appropriate affect, alert and oriented to person, place and time. Neuro: alert and oriented x 3. Moving all extermities Lines: No CVL / PICC - Constitutional Vitals: Vital Signs Temp Pulse Resp BP Pulse Ox 97.8 F 48 L 20 126/62 99 05/13/17 04:17 05/13/17 04:17 05/13/17 07:55 05/13/17 04:17 05/13/17 04:17 Temperature -Last 24 Hours Temperature 97.8 F Temperature 97.5 F Temperature 97.5 F Temperature 97.6 F Temperature 97.7 F - Labs CBC & Chem 7: 05/13/17 05:17 05/13/17 05:17 Labs: Abnormal lab results 05/09/17 05/09/17 05/12/17 Range/Units 13:19 13:19 13:05 RBC (3.65-5.03) M/mm3 Hgb (10.1-14.3) gm/dl Hct (30.3-42.9) % RDW (13.2-15.2) % Plt Count (140-440) K/mm3 Seg Neuts % (Manual) (40.0-70.0) % Lymphocytes % (Manual) (13.4-35.0) % Lymphocytes # (Manual) (1.2-5.4) K/mm3 Sodium (137-145) mmol/L Potassium (3.6-5.0) mmol/L Chloride (98-107) mmol/L Carbon Dioxide (22-30) mmol/L BUN (7-17) mg/dL Creatinine (0.7-1.2) mg/dL Glucose (65-100) mg/dL Calcium (8.4-10.2) mg/dL TIBC 173 L (250-450) mcg/dL Transferrin 160 L (192-382) mg/dl Ferritin (13.0-400.0) ng/mL AST (5-40) units/L Lactate Dehydrogenase (91-180) units/L Total Protein (6.3-8.2) g/dL Albumin (3.9-5) g/dL Vitamin B12 (211-911) pg/mL Complement C3 20 L (90-180) mg/dL Complement C4 6 L (16-47) mg/dL 05/12/17 05/12/17 05/12/17 Range/Units 13:05 13:05 13:05 RBC (3.65-5.03) M/mm3 Hgb (10.1-14.3) gm/dl Hct (30.3-42.9) % RDW (13.2-15.2) % Plt Count (140-440) K/mm3 Seg Neuts % (Manual) (40.0-70.0) % Lymphocytes % (Manual) (13.4-35.0) % Lymphocytes # (Manual) (1.2-5.4) K/mm3 Sodium (137-145) mmol/L Potassium (3.6-5.0) mmol/L Chloride (98-107) mmol/L Carbon Dioxide (22-30) mmol/L BUN (7-17) mg/dL Creatinine (0.7-1.2) mg/dL Glucose (65-100) mg/dL Calcium (8.4-10.2) mg/dL TIBC (250-450) mcg/dL Transferrin (192-382) mg/dl Ferritin 779.1 H (13.0-400.0) ng/mL AST (5-40) units/L Lactate Dehydrogenase 829 H (91-180) units/L Total Protein (6.3-8.2) g/dL Albumin (3.9-5) g/dL Vitamin B12 1311 H (211-911) pg/mL Complement C3 (90-180) mg/dL Complement C4 (16-47) mg/dL 05/12/17 05/13/17 05/13/17 Range/Units 13:05 05:17 05:17 RBC 2.60 L (3.65-5.03) M/mm3 Hgb 7.3 L (10.1-14.3) gm/dl Hct 21.7 L (30.3-42.9) % RDW 18.5 H (13.2-15.2) % Plt Count 45 L (140-440) K/mm3 Seg Neuts % (Manual) 87.0 H (40.0-70.0) % Lymphocytes % (Manual) 5.0 L (13.4-35.0) % Lymphocytes # (Manual) 0.2 L (1.2-5.4) K/mm3 Sodium 146 H (137-145) mmol/L Potassium 3.5 L (3.6-5.0) mmol/L Chloride 111.4 H (98-107) mmol/L Carbon Dioxide 31 H D (22-30) mmol/L BUN 53 H (7-17) mg/dL Creatinine 1.4 H (0.7-1.2) mg/dL Glucose 124 H (65-100) mg/dL Calcium 7.1 L (8.4-10.2) mg/dL TIBC (250-450) mcg/dL Transferrin (192-382) mg/dl Ferritin (13.0-400.0) ng/mL AST 49 H (5-40) units/L Lactate Dehydrogenase (91-180) units/L Total Protein 4.6 L D (6.3-8.2) g/dL Albumin 2.0 L (3.9-5) g/dL Vitamin B12 (211-911) pg/mL Complement C3 (90-180) mg/dL Complement C4 (16-47) mg/dL
[2017-05-13] MEDS: NYSTATIN PO SCH ×2 (11:44→19:46)
[2017-05-13] MEDS: FOLVITE PO SCH (11:44)
--- NOTE | 2017-05-13 11:49 | Progress Note ---
Assessment and Plan (1) Acute renal failure Current Visit: Yes Status: Acute Qualifiers: Acute renal failure type: A Plan to address problem: Cr cont to trend down but she has very low complement level with high DsDNA and urine protein and RBC, patient most likely has lupus nephritis but biopsy not an option for now for dye to worsening Hgba dn Plt, case discussed with Dr Kilgore , will switch prednisone to IV steroids pulse (solumedrol 500 mg IV x 3 days) for possible lupus nephritis and antibody mediated hemolytic anemia d/c IVF Renally dose medications Avoid Nephrotoxic agents Obtain daily weights Monitor I/O's Monitor renal function closely (2) Anemia Current Visit: Yes Status: Acute Qualifiers: Anemia type: A Iron deficiency anemia type: I Vitamin B12 deficiency anemia type: V Folate deficiency anemia type: F Bone marrow failure anemia type: B Hemolytic anemia type: H Other causes of anemia: O Chronic kidney disease stage: C Plan to address problem: Hematology consulted- Dr. Kilgore (3) Metabolic acidosis Current Visit: Yes Status: Acute Plan to address problem: On bicarb drip (4) Acute otitis media Current Visit: Yes Status: Acute Qualifiers: Otitis media type: O Laterality: L Recurrence: R Spontaneous tympanic membrane rupture: S Plan to address problem: on cefepime, per ID ok to give high dose steroids (5) Lupus Current Visit: No Status: Acute Qualifiers: Systemic lupus erythematosus type: S Systemic lupus erythematosus organ involvement: S Plan to address problem: switching to solumedrol as above she will need rheum eval Subjective Date of service: 05/13/17 Principal diagnosis: renal failure Interval history: remains to feel weak Objective - Vital Signs Vital signs: Vital Signs - 12hr 05/13/17 05/13/17 05/13/17 00:24 04:17 07:55 Temperature 97.5 F L 97.8 F Pulse Rate 45 L 48 L Respiratory 20 16 Rate Respiratory 20 Rate [ Generalized] Blood Pressure 125/76 126/62 O2 Sat by Pulse 100 99 Oximetry - General Appearance General appearance: well-developed, well-nourished, appears stated age EENT: ATNC, PERRL, mucous membranes moist Neck: no JVD, no carotid bruit Respiratory: Present: Clear to Ascultation Cardiology: regular, S1S2 Gastrointestinal: normoactive bowel sounds Integumentary: no rash, warm and dry Neurologic: no focal deficit, no asterixis, alert and oriented x3 Musculoskeletal: deferred Psychiatric: mood/affect appropriate, cooperative - Lab 05/13/17 05:17 05/13/17 05:17 Most recent lab results Calcium 7.1 mg/dL (8.4-10.2) L 05/13/17 05:17 Phosphorus 2.50 mg/dL (2.5-4.5) D 05/13/17 05:17 Magnesium 2.40 mg/dL (1.7-2.3) H 05/09/17 13:19 Urine Creatinine 44.1 mg/dL (0.1-20.0) H 05/11/17 10:43 Urine Sodium 30 mmol/L 05/09/17 02:36 Urine Total Protein 115 mg/dL (5-11.8) H 05/11/17 10:43
--- NOTE | 2017-05-13 11:51 | Hem/Onc Progress Note ---
Assessment and Plan Anemia workup shows anemia of chronic disease. B12 folate were normal low. plts still low. hemoGlobin stable. Kidney function improving Plan: She will be getting pulse steroids. Discussed with . Closely monitor counts. Check [id number] Avoid heparin SCDs Subjective Date of service: 05/13/17 Interval history: pt states she feels better. appetite improved. Objective - Constitutional Vitals: Last Vital Signs Temp 97.8 F 05/13/17 04:17 Pulse 48 L 05/13/17 04:17 Resp 20 05/13/17 07:55 BP 126/62 05/13/17 04:17 Pulse Ox 99 05/13/17 04:17 Pain Intensity (0-10): denies any pain General appearance: no acute distress Performance status: 2- selfcare, ambulatory - Neck Neck: supple - Respiratory Respiratory effort: Positive: normal Respiratory: bilateral: CTA - Cardiovascular Rhythm: regular Extremities: No edema - Gastrointestinal General gastrointestinal: Present: distended (sl) - Labs Lab Results: Laboratory Results - last 24 hr 05/09/17 05/09/17 05/12/17 13:19 13:19 13:05 WBC RBC Hgb Hct MCV MCH MCHC RDW Plt Count Add Manual Diff Total Counted Seg Neuts % (Manual) Band Neutrophils % Lymphocytes % (Manual) Reactive Lymphs % (Man) Monocytes % (Manual) Eosinophils % (Manual) Basophils % (Manual) Metamyelocytes % Myelocytes % Promyelocytes % Blast Cells % Nucleated RBC % Seg Neutrophils # Man Band Neutrophils # Lymphocytes # (Manual) Abs React Lymphs (Man) Monocytes # (Manual) Eosinophils # (Manual) Basophils # (Manual) Metamyelocytes # Myelocytes # Promyelocytes # Blast Cells # WBC Morphology Hypersegmented Neuts Hyposegmented Neuts Hypogranular Neuts Smudge Cells Toxic Granulation Toxic Vacuolation Dohle Bodies Pelger-Huet Anomaly Chevy Rods Platelet Estimate Clumped Platelets Plt Clumps, EDTA Large Platelets Giant Platelets Platelet Satelliting Plt Morphology Comment RBC Morphology Dimorphic RBCs Polychromasia Hypochromasia Poikilocytosis Basophilic Stippling Anisocytosis Microcytosis Macrocytosis Spherocytes Pappenheimer Bodies Sickle Cells Target Cells Tear Drop Cells Ovalocytes Helmet Cells Tam-Metaline Bodies Sully Rings Angeli Cells Bite Cells Crenated Cell Elliptocytes Acanthocytes (Spur) Rouleaux Hemoglobin C Crystals Schistocytes Malaria parasites ESR 84 Percent Retic 2.14 Driss Bodies Hem Pathologist Commnt Sodium Potassium Chloride Carbon Dioxide Anion Gap BUN Creatinine Estimated GFR BUN/Creatinine Ratio Glucose POC Glucose Calcium Phosphorus Iron TIBC % Saturation Transferrin Ferritin Total Bilirubin Direct Bilirubin Indirect Bilirubin AST ALT Alkaline Phosphatase Lactate Dehydrogenase Total Protein Albumin Albumin/Globulin Ratio Vitamin B12 Folate Complement C3 20 L Complement C4 6 L 05/12/17 05/12/17 05/12/17 13:05 13:05 13:05 WBC RBC Hgb Hct MCV MCH MCHC RDW Plt Count Add Manual Diff Total Counted Seg Neuts % (Manual) Band Neutrophils % Lymphocytes % (Manual) Reactive Lymphs % (Man) Monocytes % (Manual) Eosinophils % (Manual) Basophils % (Manual) Metamyelocytes % Myelocytes % Promyelocytes % Blast Cells % Nucleated RBC % Seg Neutrophils # Man Band Neutrophils # Lymphocytes # (Manual) Abs React Lymphs (Man) Monocytes # (Manual) Eosinophils # (Manual) Basophils # (Manual) Metamyelocytes # Myelocytes # Promyelocytes # Blast Cells # WBC Morphology Hypersegmented Neuts Hyposegmented Neuts Hypogranular Neuts Smudge Cells Toxic Granulation Toxic Vacuolation Dohle Bodies Pelger-Huet Anomaly Chevy Rods Platelet Estimate Clumped Platelets Plt Clumps, EDTA Large Platelets Giant Platelets Platelet Satelliting Plt Morphology Comment RBC Morphology Dimorphic RBCs Polychromasia Hypochromasia Poikilocytosis Basophilic Stippling Anisocytosis Microcytosis Macrocytosis Spherocytes Pappenheimer Bodies Sickle Cells Target Cells Tear Drop Cells Ovalocytes Helmet Cells Tam-Metaline Bodies Sully Rings [place] Cells Bite Cells Crenated Cell Elliptocytes Acanthocytes (Spur) Rouleaux Hemoglobin C Crystals Schistocytes Malaria parasites ESR Percent Retic Driss Bodies Hem Pathologist Commnt Sodium Potassium Chloride Carbon Dioxide Anion Gap BUN Creatinine Estimated GFR BUN/Creatinine Ratio Glucose POC Glucose Calcium Phosphorus Iron 76 TIBC 173 L % Saturation 43.93 Transferrin 160 L Ferritin 779.1 H Total Bilirubin Direct Bilirubin Indirect Bilirubin AST ALT Alkaline Phosphatase Lactate Dehydrogenase Total Protein Albumin Albumin/Globulin Ratio Vitamin B12 1311 H Folate Complement C3 Complement C4 05/12/17 05/12/17 05/12/17 13:05 13:05 13:05 WBC RBC Hgb Hct MCV MCH MCHC RDW Plt Count Add Manual Diff Total Counted Seg Neuts % (Manual) Band Neutrophils % Lymphocytes % (Manual) Reactive Lymphs % (Man) Monocytes % (Manual) Eosinophils % (Manual) Basophils % (Manual) Metamyelocytes % Myelocytes % Promyelocytes % Blast Cells % Nucleated RBC % Seg Neutrophils # Man Band Neutrophils # Lymphocytes # (Manual) Abs React Lymphs (Man) Monocytes # (Manual) Eosinophils # (Manual) Basophils # (Manual) Metamyelocytes # Myelocytes # Promyelocytes # Blast Cells # WBC Morphology Hypersegmented Neuts Hyposegmented Neuts Hypogranular Neuts Smudge Cells Toxic Granulation Toxic Vacuolation Dohle Bodies Pelger-Huet Anomaly Chevy Rods Platelet Estimate Clumped Platelets Plt Clumps, EDTA Large Platelets Giant Platelets Platelet Satelliting Plt Morphology Comment RBC Morphology Dimorphic RBCs Polychromasia Hypochromasia Poikilocytosis Basophilic Stippling Anisocytosis Microcytosis Macrocytosis Spherocytes Pappenheimer Bodies Sickle Cells Target Cells Tear Drop Cells Ovalocytes Helmet Cells Tam-Metaline Bodies Sully Rings Angeli Cells Bite Cells Crenated Cell Elliptocytes Acanthocytes (Spur) Rouleaux Hemoglobin C Crystals Schistocytes Malaria parasites ESR Percent Retic Driss Bodies Hem Pathologist Commnt Sodium Potassium Chloride Carbon Dioxide Anion Gap BUN Creatinine Estimated GFR BUN/Creatinine Ratio Glucose POC Glucose Calcium Phosphorus Iron TIBC % Saturation Transferrin Ferritin Total Bilirubin < 0.20 Direct Bilirubin < 0.2 Indirect Bilirubin 0.0 AST 49 H ALT 38 Alkaline Phosphatase 37 Lactate Dehydrogenase 829 H Total Protein 4.6 L D Albumin 2.0 L Albumin/Globulin Ratio 0.8 Vitamin B12 Folate > 20 Complement C3 Complement C4 05/13/17 05/13/17 05/13/17 05:17 05:17 10:57 WBC 4.6 RBC 2.60 L Hgb 7.3 L Hct 21.7 L MCV 84 MCH 28 MCHC 34 RDW 18.5 H Plt Count 45 L Add Manual Diff Complete Total Counted 100 Seg Neuts % (Manual) 87.0 H Band Neutrophils % 6.0 Lymphocytes % (Manual) 5.0 L Reactive Lymphs % (Man) 0 Monocytes % (Manual) 1.0 Eosinophils % (Manual) 0 Basophils % (Manual) 0 Metamyelocytes % 1.0 Myelocytes % 0 Promyelocytes % 0 Blast Cells % 0 Nucleated RBC % Not Reportable Seg Neutrophils # Man 4.0 Band Neutrophils # 0.3 Lymphocytes # (Manual) 0.2 L Abs React Lymphs (Man) 0.0 Monocytes # (Manual) 0.0 Eosinophils # (Manual) 0.0 Basophils # (Manual) 0.0 Metamyelocytes # 0.0 Myelocytes # 0.0 Promyelocytes # 0.0 Blast Cells # 0.0 WBC Morphology Not Reportable Hypersegmented Neuts Not Reportable Hyposegmented Neuts Not Reportable Hypogranular Neuts Not Reportable Smudge Cells Not Reportable Toxic Granulation Not Reportable Toxic Vacuolation Not Reportable Dohle Bodies Not Reportable Pelger-Huet Anomaly Not Reportable Chevy Rods Not Reportable Platelet Estimate Appears decreased Clumped Platelets Not Reportable Plt Clumps, EDTA Not Reportable Large Platelets Few Giant Platelets Not Reportable Platelet Satelliting Not Reportable Plt Morphology Comment Not Reportable RBC Morphology Not Reportable Dimorphic RBCs Not Reportable Polychromasia Not Reportable Hypochromasia Not Reportable Poikilocytosis 1+ Basophilic Stippling Rare Anisocytosis 1+ Microcytosis 1+ Macrocytosis Not Reportable Spherocytes Not Reportable Pappenheimer Bodies Not Reportable Sickle Cells Not Reportable Target Cells Not Reportable Tear Drop Cells Rare Ovalocytes 2+ Helmet Cells Few Tam-Metaline Bodies Not Reportable Sully Rings Not Reportable Angeli Cells Not Reportable Bite Cells Not Reportable Crenated Cell Not Reportable Elliptocytes Not Reportable Acanthocytes (Spur) Not Reportable Rouleaux Not Reportable Hemoglobin C Crystals Not Reportable Schistocytes Not Reportable Malaria parasites Not Reportable ESR Percent Retic Driss Bodies Not Reportable Hem Pathologist Commnt No Sodium 146 H Potassium 3.5 L Chloride 111.4 H Carbon Dioxide 31 H D Anion Gap 7 BUN 53 H Creatinine 1.4 H Estimated GFR 55 BUN/Creatinine Ratio 38 Glucose 124 H POC Glucose 131 H Calcium 7.1 L Phosphorus 2.50 D Iron TIBC % Saturation Transferrin Ferritin Total Bilirubin Direct Bilirubin Indirect Bilirubin AST ALT Alkaline Phosphatase Lactate Dehydrogenase Total Protein Albumin Albumin/Globulin Ratio Vitamin B12 Folate Complement C3 Complement C4
[2017-05-13 18:14] LABS: Myeloperoxidase Antibody <1.0 AI (<1.0)
--- NOTE | 2017-05-13 22:50 | Progress Note ---
Assessment and Plan Assessment and plan: This is a 26 year old female with PMH of Lupus (diagnosed in 2008) and anemia who presented to [facility] today with complaints of generalized weakness, fatigue, nosebleed (woke up with nosebleed), decreased appetite, and bilateral ear pain with drainage for the past 3-4 days. Patient states she was hospitalized [facility] overnight last week for suspected lupus flare up, prescribed prednison upon discharge. Patient also states she had an infection (not sure of source) when she was at [place], no antibiotics prescribed. Acute kidney injury -improving down to 1.4 - ATN versus lupus nephritis - Nephrology consulted - Creatinine improved from 4-2.6 to morning - Plan per nephrology for renal biopsy once UTI treated - Patient was given IV fluids and steroids Thrombocytopenia - Worse, started on Pulse dose steroids. Continue to monitor. - Hematology input noted Severe anemia - Improved with transfusion ordered - Iron def noted also - Patient with multiple antibodies delaying transfusion - ?Autoimmune, await Hemeonc input - occult blood negative, avoid all antiplatelet medications at this time SLE flareup - Continue steroids Bilateral otitis media - Continue IV antibiotic -Cefriaxone stopped and patient started on cefepime to cover for GPC AND GNB including pseudomonas -ID consult requested and input noted -ENT strongly encouraged out patient, and patient verbalized understanding SIRS secondary to Acute Cystitis-POA - Continue Abx, check urine culture Type 2 MS secondary to MARITZA - Patient denies any chest pain Decreased appetite - megestrol ordered - Nutrition consult, Check Albumin level DVT prophylaxis - SCDs because of severe anemia Disposition - Continue inpatient care CODE STATUS Full Discussed with patient, nephrology and Hematology Discharge in 24-48 hours if ok with ID, NEPRHOLOGY AND HEMONC History Interval history: patient seen and examined in no acute distress. reports improvement in hearing. Hospitalist Physical - Physical exam Narrative exam: VITAL SIGNS: Reviewed. GENERAL: The patient appeared well nourished and normally developed. Vital signs as documented. HEAD: No signs of head trauma. EYES: Pupils are equal. Extraocular motions intact. EARS: Hearing intact. MOUTH: Oropharynx is normal. NECK: No adenopathy, no JVD. CHEST: Chest with clear breath sounds bilaterally. No wheezes, rales, or rhonchi. CARDIAC: Regular rate and rhythm. S1 and S2, without murmurs, gallops, or rubs. VASCULAR: No Edema. Peripheral pulses normal and equal in all extremities. ABDOMEN: Soft, without detectable tenderness. No sign of distention. No rebound or guarding, and no masses palpated. Bowel Sounds normal. MUSCULOSKELETAL: Good range of motion of all major joints. Extremities without clubbing, cyanosis or edema. NEUROLOGIC EXAM: Alert and oriented x 3. No focal sensory or strength deficits. Speech normal. Follows commands. PSYCHIATRIC: Mood normal. SKIN: No rash or lesions. - Constitutional Vitals: Temp Pulse Resp BP Pulse Ox 97.5 F L 46 L 18 136/77 100 05/13/17 19:56 05/13/17 19:56 05/13/17 19:56 05/13/17 19:56 05/13/17 19:56 General appearance: Present: no acute distress Results - Labs CBC & Chem 7: 05/13/17 05:17 05/13/17 05:17 Labs: Laboratory Last Values WBC 4.6 K/mm3 (4.5-11.0) 05/13/17 05:17 RBC 2.60 M/mm3 (3.65-5.03) L 05/13/17 05:17 Hgb 7.3 gm/dl (10.1-14.3) L 05/13/17 05:17 Hct 21.7 % (30.3-42.9) L 05/13/17 05:17 MCV 84 fl (79-97) 05/13/17 05:17 MCH 28 pg (28-32) 05/13/17 05:17 MCHC 34 % (30-34) 05/13/17 05:17 RDW 18.5 % (13.2-15.2) H 05/13/17 05:17 Plt Count 45 K/mm3 (140-440) L 05/13/17 05:17 Lymph % (Auto) 5.7 % (13.4-35.0) L 05/12/17 04:46 [place] % (Auto) 7.2 % (0.0-7.3) 05/12/17 04:46 Eos % (Auto) 0.0 % (0.0-4.3) 05/12/17 04:46 Baso % (Auto) 0.1 % (0.0-1.8) 05/12/17 04:46 Lymph # 0.3 K/mm3 (1.2-5.4) L 05/12/17 04:46 [place] # 0.4 K/mm3 (0.0-0.8) 05/12/17 04:46 Eos # 0.0 K/mm3 (0.0-0.4) 05/12/17 04:46 Baso # 0.0 K/mm3 (0.0-0.1) 05/12/17 04:46 Add Manual Diff Complete 05/13/17 05:17 Total Counted 100 05/13/17 05:17 Seg Neutrophils % 87.0 % (40.0-70.0) H 05/12/17 04:46 Seg Neuts % (Manual) 87.0 % (40.0-70.0) H 05/13/17 05:17 Band Neutrophils % 6.0 % 05/13/17 05:17 Lymphocytes % (Manual) 5.0 % (13.4-35.0) L 05/13/17 05:17 Reactive Lymphs % (Man) 0 % 05/13/17 05:17 Monocytes % (Manual) 1.0 % (0.0-7.3) 05/13/17 05:17 Eosinophils % (Manual) 0 % (0.0-4.3) 05/13/17 05:17 Basophils % (Manual) 0 % (0.0-1.8) 05/13/17 05:17 Metamyelocytes % 1.0 % 05/13/17 05:17 Myelocytes % 0 % 05/13/17 05:17 Promyelocytes % 0 % 05/13/17 05:17 Blast Cells % 0 % 05/13/17 05:17 Nucleated RBC % Not Reportable 05/13/17 05:17 Seg Neutrophils # 4.4 K/mm3 (1.8-7.7) 05/12/17 04:46 Seg Neutrophils # Man 4.0 K/mm3 (1.8-7.7) 05/13/17 05:17 Band Neutrophils # 0.3 K/mm3 05/13/17 05:17 Lymphocytes # (Manual) 0.2 K/mm3 (1.2-5.4) L 05/13/17 05:17 Abs React Lymphs (Man) 0.0 K/mm3 05/13/17 05:17 Monocytes # (Manual) 0.0 K/mm3 (0.0-0.8) 05/13/17 05:17 Eosinophils # (Manual) 0.0 K/mm3 (0.0-0.4) 05/13/17 05:17 Basophils # (Manual) 0.0 K/mm3 (0.0-0.1) 05/13/17 05:17 Metamyelocytes # 0.0 K/mm3 05/13/17 05:17 Myelocytes # 0.0 K/mm3 05/13/17 05:17 Promyelocytes # 0.0 K/mm3 05/13/17 05:17 Blast Cells # 0.0 K/mm3 05/13/17 05:17 WBC Morphology Not Reportable 05/13/17 05:17 Hypersegmented Neuts Not Reportable 05/13/17 05:17 Hyposegmented Neuts Not Reportable 05/13/17 05:17 Hypogranular Neuts Not Reportable 05/13/17 05:17 Smudge Cells Not Reportable 05/13/17 05:17 Toxic Granulation Not Reportable 05/13/17 05:17 Toxic Vacuolation Not Reportable 05/13/17 05:17 Dohle Bodies Not Reportable 05/13/17 05:17 Pelger-Huet Anomaly Not Reportable 05/13/17 05:17 Chevy Rods Not Reportable 05/13/17 05:17 Platelet Estimate Appears decreased 05/13/17 05:17 Clumped Platelets Not Reportable 05/13/17 05:17 Plt Clumps, EDTA Not Reportable 05/13/17 05:17 Large Platelets Few 05/13/17 05:17 Giant Platelets Not Reportable 05/13/17 05:17 Platelet Satelliting Not Reportable 05/13/17 05:17 Plt Morphology Comment Not Reportable 05/13/17 05:17 RBC Morphology Not Reportable 05/13/17 05:17 Dimorphic RBCs Not Reportable 05/13/17 05:17 Polychromasia Not Reportable 05/13/17 05:17 Hypochromasia Not Reportable 05/13/17 05:17 Poikilocytosis 1+ 05/13/17 05:17 Basophilic Stippling Rare 05/13/17 05:17 Anisocytosis 1+ 05/13/17 05:17 Microcytosis 1+ 05/13/17 05:17 Macrocytosis Not Reportable 05/13/17 05:17 Spherocytes Not Reportable 05/13/17 05:17 Pappenheimer Bodies Not Reportable 05/13/17 05:17 Sickle Cells Not Reportable 05/13/17 05:17 Target Cells Not Reportable 05/13/17 05:17 Tear Drop Cells Rare 05/13/17 05:17 Ovalocytes 2+ 05/13/17 05:17 Helmet Cells Few 05/13/17 05:17 [place] Bodies Not Reportable 05/13/17 05:17 [place] Rings Not Reportable 05/13/17 05:17 Angeli Cells Not Reportable 05/13/17 05:17 Bite Cells Not Reportable 05/13/17 05:17 Crenated Cell Not Reportable 05/13/17 05:17 Elliptocytes Not Reportable 05/13/17 05:17 Acanthocytes (Spur) Not Reportable 05/13/17 05:17 Rouleaux Not Reportable 05/13/17 05:17 Hemoglobin C Crystals Not Reportable 05/13/17 05:17 Schistocytes Not Reportable 05/13/17 05:17 Malaria parasites Not Reportable 05/13/17 05:17 ESR 84 mm/Hr (0-20) 05/12/17 13:05 Percent Retic 2.14 % (0.78-2.58) 05/12/17 13:05 Driss Bodies Not Reportable 05/13/17 05:17 Hem Pathologist Commnt No 05/13/17 05:17 POC ABG pH 7.313 (7.35-7.45) L 05/09/17 19:00 POC ABG pCO2 29.3 (35-45) L 05/09/17 19:00 POC ABG pO2 103 (80-105) 05/09/17 19:00 POC ABG HCO3 14.9 05/09/17 19:00 POC ABG Total CO2 16 05/09/17 19:00 POC ABG O2 Sat 97 05/09/17 19:00 POC ABG Base Excess -11 05/09/17 19:00 FiO2 21 % 05/09/17 19:00 Sodium 146 mmol/L (137-145) H 05/13/17 05:17 Potassium 3.5 mmol/L (3.6-5.0) L 05/13/17 05:17 Chloride 111.4 mmol/L (98-107) H 05/13/17 05:17 Carbon Dioxide 31 mmol/L (22-30) H D 05/13/17 05:17 Anion Gap 7 mmol/L 05/13/17 05:17 BUN 53 mg/dL (7-17) H 05/13/17 05:17 Creatinine 1.4 mg/dL (0.7-1.2) H 05/13/17 05:17 Estimated GFR 55 ml/min 05/13/17 05:17 BUN/Creatinine Ratio 38 % 05/13/17 05:17 Glucose 124 mg/dL (65-100) H 05/13/17 05:17 POC Glucose 131 (70-105) H 05/13/17 10:57 Calcium 7.1 mg/dL (8.4-10.2) L 05/13/17 05:17 Phosphorus 2.50 mg/dL (2.5-4.5) D 05/13/17 05:17 Magnesium 2.40 mg/dL (1.7-2.3) H 05/09/17 13:19 Iron 76 ug/dL (37-170) 05/12/17 13:05 TIBC 173 mcg/dL (250-450) L 05/12/17 13:05 % Saturation 43.93 % 05/12/17 13:05 Transferrin 160 mg/dl (192-382) L 05/12/17 13:05 Ferritin 779.1 ng/mL (13.0-400.0) H 05/12/17 13:05 Total Bilirubin < 0.20 mg/dL (0.1-1.2) 05/12/17 13:05 Direct Bilirubin < 0.2 mg/dL (0-0.2) 05/12/17 13:05 Indirect Bilirubin 0.0 mg/dL 05/12/17 13:05 AST 49 units/L (5-40) H 05/12/17 13:05 ALT 38 units/L (7-56) 05/12/17 13:05 Alkaline Phosphatase 37 units/L (35-129) 05/12/17 13:05 Lactate Dehydrogenase 829 units/L (91-180) H 05/12/17 13:05 Total Creatine Kinase 212 units/L (30-135) H 05/11/17 12:48 CK-MB (CK-2) 6.1 ng/mL (0.0-4.0) H 05/11/17 12:48 CK-MB (CK-2) Rel Index 2.8 (0-4) 05/11/17 12:48 Troponin T 0.096 ng/mL (0.00-0.029) H 05/11/17 12:48 C-Reactive Protein 0.10 mg/dL (0.00-1.30) 05/11/17 16:07 Total Protein 4.6 g/dL (6.3-8.2) L D 05/12/17 13:05 Albumin 2.0 g/dL (3.9-5) L 05/12/17 13:05 Albumin/Globulin Ratio 0.8 % 05/12/17 13:05 Vitamin B12 1311 pg/mL (211-911) H 05/12/17 13:05 Folate > 20 ng/mL (7.3-26.0) 05/12/17 13:05 PTH Intact 117.2 pg/mL (15-65) H 05/09/17 13:19 Urine Color Yellow (Yellow) 05/11/17 10:43 Urine Turbidity Clear (Clear) 05/11/17 10:43 Urine pH 6.0 (5.0-7.0) 05/11/17 10:43 Ur Specific [employer] Mdl 1.010 (1.003-1.030) 05/11/17 10:43 Urine Protein 100 mg/dl mg/dL (Negative) 05/11/17 10:43 Urine Glucose (UA) Neg mg/dL (Negative) 05/11/17 10:43 Urine Ketones Neg mg/dL (Negative) 05/11/17 10:43 Urine Blood Mod (Negative) 05/11/17 10:43 Urine Nitrite Neg (Negative) 05/11/17 10:43 Ur Reducing Substances Not Reportable 05/08/17 Unknown Urine Bilirubin Neg (Negative) 05/11/17 10:43 Urine Ictotest Not Reportable 05/08/17 Unknown Urine Urobilinogen < 2.0 mg/dL (<2.0) 05/11/17 10:43 Ur Leukocyte Esterase Neg (Negative) 05/11/17 10:43 Urine WBC (Auto) 5.0 /HPF (0.0-6.0) 05/11/17 10:43 Urine RBC (Auto) 10.0 /HPF (0.0-6.0) 05/11/17 10:43 U Epithel Cells (Auto) 5.0 /HPF (0-13.0) 05/11/17 10:43 Urine Bacteria (Auto) 2+ /HPF (Negative) 05/08/17 Unknown Urine Mucus Few /HPF 05/08/17 Unknown Urine Eosinophils None seen (None Seen) 05/11/17 Unknown Urine Osmolality 344 Mosm/kg 05/09/17 02:36 Urine Creatinine 44.1 mg/dL (0.1-20.0) H 05/11/17 10:43 Protein/Creatinin Ratio 2.61 05/11/17 10:43 Urine Sodium 30 mmol/L 05/09/17 02:36 Urine Total Protein 115 mg/dL (5-11.8) H 05/11/17 10:43 Urine HCG, Qual Negative (Negative) 05/08/17 Unknown MALU Screen Positive (Negative) H 05/09/17 13:19 MALU Titer 1:640 (Negative) H 05/09/17 13:19 MALU Pattern Homogeneous 05/09/17 13:19 Proteinase 3 (PR3) Ab <1.0 AI (<1.0) 05/11/17 12:48 Myeloperoxidase Ab <1.0 AI (<1.0) 05/11/17 12:48 Double Strand DNA Ab 104 IU/mL (<=4) H 05/09/17 13:19 Glomerular Base Mem IgG <1.0 AI (<1.0) 05/11/17 12:48 Complement C3 20 mg/dL (90-180) L 05/09/17 13:19 Complement C4 6 mg/dL (16-47) L 05/09/17 13:19 Tot Complement (CH50) <10 U/mL (31-60) L 05/09/17 13:19 Hep Bs Antigen Non-reactive (Negative) 05/11/17 12:48 Hepatitis C Antibody Non-reactive (NonReactive) 05/11/17 12:48 HIV 1&2 Antibody Rapid Non react (Non React) 05/11/17 12:48 HIV P24 Antigen Non react (Non React) 05/11/17 12:48 Schistocytes Smear Rare 05/11/17 12:48 Blood Type AB POSITIVE 05/10/17 08:12 Antibody Screen Positive 05/10/17 08:12 FRANDY Antibody Screen Positive 05/10/17 08:12 Antibody Identification Anti-IH Warm Auto Antibody 05/10/17 08:12 Antibody Identification Anti-IH Warm Auto Antibody 05/10/17 08:12 Direct Antiglob Test Positive 05/10/17 08:12 ABDIRAHMAN (IgG-AHG) Positive 05/10/17 08:12 ABDIRAHMAN, Poly Interpret Positive 05/10/17 08:12 ABDIRAHMAN, Anti-C3 Negative 05/10/17 08:12 Crossmatch See Detail 05/10/17 08:12
[2017-05-14] MEDS: NYSTATIN PO SCH ×4 (00:11→17:57)
[2017-05-14 06:03] LABS: Hematocrit 26.1 % (30.3-42.9); Hemoglobin 8.4 gm/dl (10.1-14.3); Mean Corpuscular HGB Conc 32 % (30-34); Mean Corpuscular Hemoglobin 27 pg (28-32); Mean Corpuscular Volume 85 fl (79-97); Red Blood Count 3.09 M/mm3 (3.65-5.03); Red Cell Distribution Width 18.3 % (13.2-15.2); White Blood Count 4.3 K/mm3 (4.5-11.0)
[2017-05-14 06:04] LABS: Platelet Count 54 K/mm3 (140-440)
[2017-05-14] MEDS: MAXIPIME/NS 1 GM/100 ML 1 GM/100 ML BAG IV SCH ×3 (06:32→22:09)
[2017-05-14 06:44] LABS: Calcium 7.2 mg/dL (8.4-10.2); Chloride 107.2 mmol/L (98-107); Phosphorous 3.5 mg/dL (2.5-4.5)
[2017-05-14 07:00] LABS: Anisocytosis 1+; Basophils % (Manual) 0 % (0.0-1.8); Blastocytes % (Manual) 0 %; Eosinophils % (Manual) 0 % (0.0-4.3); Microcytosis 1+; Ovalocytes 1+
[2017-05-14 07:01] LABS: Diff Status Complete; Platelet Estimate Consistent w Auto; Tear Drop Cells Few
--- NOTE | 2017-05-14 09:49 | Hem/Onc Progress Note ---
Assessment and Plan Overall improved status. Continue steroids. We will follow. Hemoglobin has improved and platelets have also slightly improved. Creatinine improved. Check LDH in the morning. Subjective Date of service: 05/14/17 Interval history: pt states she feels better. appetite improved. Objective - Constitutional Vitals: Last Vital Signs Temp 98.2 F 05/14/17 04:41 Pulse 45 L 05/14/17 00:11 Resp 16 05/14/17 04:41 BP 142/66 05/14/17 04:41 Pulse Ox 100 05/14/17 00:11 Pain Intensity (0-10): denies any pain General appearance: no acute distress Performance status: 2- selfcare, ambulatory - Neck Neck: supple - Respiratory Respiratory effort: Positive: normal - Cardiovascular Rhythm: regular Extremities: No edema - Gastrointestinal General gastrointestinal: Present: soft - Labs Lab Results: Laboratory Results - last 24 hr 05/09/17 05/11/17 05/11/17 13:19 12:48 12:48 WBC RBC Hgb Hct MCV MCH MCHC RDW Plt Count Add Manual Diff Total Counted Seg Neuts % (Manual) Band Neutrophils % Lymphocytes % (Manual) Reactive Lymphs % (Man) Monocytes % (Manual) Eosinophils % (Manual) Basophils % (Manual) Metamyelocytes % Myelocytes % Promyelocytes % Blast Cells % Nucleated RBC % Seg Neutrophils # Man Band Neutrophils # Lymphocytes # (Manual) Abs React Lymphs (Man) Monocytes # (Manual) Eosinophils # (Manual) Basophils # (Manual) Metamyelocytes # Myelocytes # Promyelocytes # Blast Cells # WBC Morphology Hypersegmented Neuts Hyposegmented Neuts Hypogranular Neuts Smudge Cells Toxic Granulation Toxic Vacuolation Dohle Bodies Pelger-Huet Anomaly [place] Platelet Estimate Clumped Platelets Plt Clumps, EDTA Large Platelets Giant Platelets Platelet Satelliting Plt Morphology Comment RBC Morphology Dimorphic RBCs Polychromasia Hypochromasia Poikilocytosis Anisocytosis Microcytosis Macrocytosis Spherocytes Pappenheimer Bodies Sickle Cells Target Cells Tear Drop Cells Ovalocytes Helmet Cells Tam-[place] Bodies [place] Cells Bite Cells Crenated Cell Elliptocytes Acanthocytes (Spur) Rouleaux Hemoglobin C Crystals Schistocytes Malaria parasites Driss Bodies Hem Pathologist Commnt Sodium Potassium Chloride Carbon Dioxide Anion Gap BUN Creatinine Estimated GFR BUN/Creatinine Ratio Glucose POC Glucose Calcium Phosphorus MALU Screen Positive H MALU Titer 1:640 H MALU Pattern Homogeneous Proteinase 3 (PR3) Ab <1.0 Myeloperoxidase Ab <1.0 Glomerular Base Mem IgG <1.0 05/13/17 05/14/17 05/14/17 10:57 05:06 05:06 WBC 4.3 L RBC 3.09 L Hgb 8.4 L Hct 26.1 L MCV 85 MCH 27 L MCHC 32 RDW 18.3 H Plt Count 54 L Add Manual Diff Complete Total Counted 100 Seg Neuts % (Manual) 86.0 H Band Neutrophils % 6.0 Lymphocytes % (Manual) 6.0 L Reactive Lymphs % (Man) 0 Monocytes % (Manual) 2.0 Eosinophils % (Manual) 0 Basophils % (Manual) 0 Metamyelocytes % 0 Myelocytes % 0 Promyelocytes % 0 Blast Cells % 0 Nucleated RBC % 2.0 H Seg Neutrophils # Man 3.7 Band Neutrophils # 0.3 Lymphocytes # (Manual) 0.3 L Abs React Lymphs (Man) 0.0 Monocytes # (Manual) 0.1 Eosinophils # (Manual) 0.0 Basophils # (Manual) 0.0 Metamyelocytes # 0.0 Myelocytes # 0.0 Promyelocytes # 0.0 Blast Cells # 0.0 WBC Morphology Not Reportable Hypersegmented Neuts Not Reportable Hyposegmented Neuts Not Reportable Hypogranular Neuts Not Reportable Smudge Cells Not Reportable Toxic Granulation Not Reportable Toxic Vacuolation Not Reportable Dohle Bodies Not Reportable Pelger-Huet Anomaly Not Reportable [place] Not Reportable Platelet Estimate Consistent w auto Clumped Platelets Not Reportable Plt Clumps, EDTA Not Reportable Large Platelets Not Reportable Giant Platelets Not Reportable Platelet Satelliting Not Reportable Plt Morphology Comment Not Reportable RBC Morphology Not Reportable Dimorphic RBCs Not Reportable Polychromasia Not Reportable Hypochromasia Not Reportable Poikilocytosis Not Reportable Anisocytosis 1+ Microcytosis 1+ Macrocytosis Not Reportable Spherocytes Not Reportable Pappenheimer Bodies Not Reportable Sickle Cells Not Reportable Target Cells Not Reportable Tear Drop Cells Few Ovalocytes 1+ Helmet Cells Not Reportable Tam-[place] Bodies Not Reportable [place] Rings Not Reportable [place] Cells Not Reportable Bite Cells Not Reportable Crenated Cell Not Reportable Elliptocytes Not Reportable Acanthocytes (Spur) Not Reportable Rouleaux Not Reportable Hemoglobin C Crystals Not Reportable Schistocytes Not Reportable Malaria parasites Not Reportable Driss Bodies Not Reportable Hem Pathologist Commnt No Sodium 147 H Potassium 4.0 Chloride 107.2 H Carbon Dioxide 33 H Anion Gap 11 BUN 43 H Creatinine 1.3 H Estimated GFR 59 BUN/Creatinine Ratio 33 Glucose 119 H POC Glucose 131 H Calcium 7.2 L Phosphorus 3.50 D MALU Screen MAUL Titer MALU Pattern Proteinase 3 (PR3) Ab Myeloperoxidase Ab Glomerular Base Mem IgG 05/14/17 07:57 WBC RBC Hgb Hct MCV MCH MCHC RDW Plt Count Add Manual Diff Total Counted Seg Neuts % (Manual) Band Neutrophils % Lymphocytes % (Manual) Reactive Lymphs % (Man) Monocytes % (Manual) Eosinophils % (Manual) Basophils % (Manual) Metamyelocytes % Myelocytes % Promyelocytes % Blast Cells % Nucleated RBC % Seg Neutrophils # Man Band Neutrophils # Lymphocytes # (Manual) Abs React Lymphs (Man) Monocytes # (Manual) Eosinophils # (Manual) Basophils # (Manual) Metamyelocytes # Myelocytes # Promyelocytes # Blast Cells # WBC Morphology Hypersegmented Neuts Hyposegmented Neuts Hypogranular Neuts Smudge Cells Toxic Granulation Toxic Vacuolation Dohle Bodies Pelger-Huet Anomaly [place] Platelet Estimate Clumped Platelets Plt Clumps, EDTA Large Platelets Giant Platelets Platelet Satelliting Plt Morphology Comment RBC Morphology Dimorphic RBCs Polychromasia Hypochromasia Poikilocytosis Anisocytosis Microcytosis Macrocytosis Spherocytes Pappenheimer Bodies Sickle Cells Target Cells Tear Drop Cells Ovalocytes Helmet Cells Tam-[place] Bodies [place] Angeli Cells Bite Cells Crenated Cell Elliptocytes Acanthocytes (Spur) Rouleaux Hemoglobin C Crystals Schistocytes Malaria parasites Driss Bodies Hem Pathologist Commnt Sodium Potassium Chloride Carbon Dioxide Anion Gap BUN Creatinine Estimated GFR BUN/Creatinine Ratio Glucose POC Glucose 114 H Calcium Phosphorus MALU Screen MALU Titer MALU Pattern Proteinase 3 (PR3) Ab Myeloperoxidase Ab Glomerular Base Mem IgG
--- NOTE | 2017-05-14 10:19 | Progress Note ---
Assessment and Plan (1) Acute renal failure Current Visit: Yes Status: Acute Qualifiers: Acute renal failure type: A Plan to address problem: Cr cont to trend down but she has very low complement level with high DsDNA and urine protein and RBC, will consider kidney biopsy when she have stable Hgb and PLT (Hgb needs to be >10 g/dl) cont solumedrol pulse for total of three days then she will be switched back to prednisone 60 mg qday d/c IVF Renally dose medications Avoid Nephrotoxic agents Obtain daily weights Monitor I/O's Monitor renal function closely (2) Anemia Current Visit: Yes Status: Acute Qualifiers: Anemia type: A Iron deficiency anemia type: I Vitamin B12 deficiency anemia type: V Folate deficiency anemia type: F Bone marrow failure anemia type: B Hemolytic anemia type: H Other causes of anemia: O Chronic kidney disease stage: C Plan to address problem: Hematology consulted- Dr. Kilgore (3) Metabolic acidosis Current Visit: Yes Status: Acute Plan to address problem: off IVF (4) Acute otitis media Current Visit: Yes Status: Acute Qualifiers: Otitis media type: O Laterality: L Recurrence: R Spontaneous tympanic membrane rupture: S Plan to address problem: on cefepime, per ID ok to give high dose steroids (5) Lupus Current Visit: No Status: Acute Qualifiers: Systemic lupus erythematosus type: S Systemic lupus erythematosus organ involvement: S Plan to address problem: switching to solumedrol as above she will need rheum eval Subjective Date of service: 05/14/17 Principal diagnosis: renal failure Interval history: tolerating high dose steroids Objective - Vital Signs Vital signs: Vital Signs - 12hr 05/14/17 05/14/17 00:11 04:41 Temperature 98.1 F 98.2 F Pulse Rate 45 L Respiratory 18 16 Rate Blood Pressure 146/71 142/66 O2 Sat by Pulse 100 Oximetry - General Appearance General appearance: well-developed, well-nourished, appears stated age EENT: ATNC, PERRL, mucous membranes moist Neck: no JVD, no carotid bruit Respiratory: Present: Clear to Ascultation Cardiology: regular, S1S2 Gastrointestinal: normoactive bowel sounds, no tenderness, no distended, no masses Integumentary: no rash, warm and dry Neurologic: no focal deficit, no asterixis, alert and oriented x3 Musculoskeletal: other (no edema in BLE) Psychiatric: mood/affect appropriate, cooperative - Lab 05/14/17 05:06 05/14/17 05:06 Most recent lab results Calcium 7.2 mg/dL (8.4-10.2) L 05/14/17 05:06 Phosphorus 3.50 mg/dL (2.5-4.5) D 05/14/17 05:06 Magnesium 2.40 mg/dL (1.7-2.3) H 05/09/17 13:19 Urine Creatinine 44.1 mg/dL (0.1-20.0) H 05/11/17 10:43 Urine Sodium 30 mmol/L 05/09/17 02:36 Urine Total Protein 115 mg/dL (5-11.8) H 05/11/17 10:43
[2017-05-14] MEDS: MEGACE PO SCH ×4 (10:51→22:10)
[2017-05-14] MEDS: FOLVITE PO SCH (10:51)
[2017-05-14] MEDS: PERCOCET 5/325 PO PRN ×2 (10:51→22:10)
--- NOTE | 2017-05-14 11:17 | Progress Note ---
Assessment and Plan Assessment: 1) SIRS: better. Etiology most likely bilateral otitis media +/- lupus flare. CRP=0.1. HIV neg. 2) Bilateral otitis media - better 3) MARITZA - > lupus nephritis 4) Anemia / thrombocytopenia from lupus 5) Lupus with very low C3/C4 ? lupus flare 6) Oral candidiasis Plan: -ENT eval as an outpatient -continue cefepime to cover GPC and GNB including Pseudomonas -upon discharge will do levaquin 750 mg po q48 hours total 10 days from 05/11 until 05/20 -continue nystatin swish and swallow for 14 days I will be off the weekend. I will be available over the phone. Thank you Dr Estrella for your consultation, will follow up with you. Mary Earl MD Infectious Diseases Specialist [facility] [id number] [phone] Subjective Date of service: 05/14/17 Principal diagnosis: renal failure Interval history: Feels better, no fever, no ear pain Current Antimicrobials: cefepime 05/11 Previous Antimicrobials: Ceftriaxone 05/09 Microbiology: Blood cultures: 05/10 ngtd Urine cultures: Objective - Exam Narrative Exam: General appearance: Alert in NAD, conversant Eyes: anicteric sclerae, moist conjunctivae; no lid-lag; PERRLA HENT: Atraumatic; oropharynx +thrush. +wellington erythematous TM with fluid Neck: Trachea midline; supple, no thyromegaly or lymphadenopathy Lungs: CTA, with normal respiratory effort and no intercostal retractions CV: RRR, +murmurs Abdomen: Soft, non-tender; no masses or hepatosplenomegaly Extremities: No peripheral edema or extremity lymphadenopathy Skin: Normal temperature, turgor and texture; no rash, ulcers or subcutaneous nodules Psych: Appropriate affect, alert and oriented to person, place and time. Neuro: alert and oriented x 3. Moving all extermities Lines: No CVL / PICC - Constitutional Vitals: Vital Signs Temp Pulse Resp BP Pulse Ox 98.2 F 44 L 20 142/66 100 05/14/17 04:41 05/14/17 10:00 05/14/17 10:51 05/14/17 04:41 05/14/17 00:11 Temperature -Last 24 Hours Temperature 98.2 F Temperature 98.1 F Temperature 97.5 F Temperature 98.4 F Temperature 97.2 F Temperature 97.5 F - Labs CBC & Chem 7: 05/14/17 05:06 05/14/17 05:06 Labs: Abnormal lab results 05/09/17 05/14/17 05/14/17 Range/Units 13:19 05:06 05:06 WBC 4.3 L (4.5-11.0) K/mm3 RBC 3.09 L (3.65-5.03) M/mm3 Hgb 8.4 L (10.1-14.3) gm/dl Hct 26.1 L (30.3-42.9) % MCH 27 L (28-32) pg RDW 18.3 H (13.2-15.2) % Plt Count 54 L (140-440) K/mm3 Seg Neuts % (Manual) 86.0 H (40.0-70.0) % Lymphocytes % (Manual) 6.0 L (13.4-35.0) % Nucleated RBC % 2.0 H (0.0-0.9) % Lymphocytes # (Manual) 0.3 L (1.2-5.4) K/mm3 Sodium 147 H (137-145) mmol/L Chloride 107.2 H (98-107) mmol/L Carbon Dioxide 33 H (22-30) mmol/L BUN 43 H (7-17) mg/dL Creatinine 1.3 H (0.7-1.2) mg/dL Glucose 119 H (65-100) mg/dL POC Glucose (70-105) Calcium 7.2 L (8.4-10.2) mg/dL MALU Screen Positive H (Negative) MALU Titer 1:640 H (Negative) 05/14/17 Range/Units 07:57 WBC (4.5-11.0) K/mm3 RBC (3.65-5.03) M/mm3 Hgb (10.1-14.3) gm/dl Hct (30.3-42.9) % MCH (28-32) pg RDW (13.2-15.2) % Plt Count (140-440) K/mm3 Seg Neuts % (Manual) (40.0-70.0) % Lymphocytes % (Manual) (13.4-35.0) % Nucleated RBC % (0.0-0.9) % Lymphocytes # (Manual) (1.2-5.4) K/mm3 Sodium (137-145) mmol/L Chloride (98-107) mmol/L Carbon Dioxide (22-30) mmol/L BUN (7-17) mg/dL Creatinine (0.7-1.2) mg/dL Glucose (65-100) mg/dL POC Glucose 114 H (70-105) Calcium (8.4-10.2) mg/dL MALU Screen (Negative) MALU Titer (Negative)
--- NOTE | 2017-05-14 18:52 | Progress Note ---
Assessment and Plan Assessment and plan: This is a 26 year old female with PMH of Lupus (diagnosed in 2008) and anemia who presented to [facility] today with complaints of generalized weakness, fatigue, nosebleed (woke up with nosebleed), decreased appetite, and bilateral ear pain with drainage for the past 3-4 days. Patient states she was hospitalized [facility] overnight last week for suspected lupus flare up, prescribed prednisone upon discharge. Patient also states she had an infection (not sure of source) when she was at [place], no antibiotics prescribed. Acute kidney injury -improving down to 1.4 - ATN versus lupus nephritis - Nephrology consulted - Creatinine improved from 4-2.6 to morning - Plan per nephrology for renal biopsy once UTI treated - Patient was given IV fluids and steroids Thrombocytopenia - improving started on Pulse dose steroids. Continue to monitor. - Hematology input noted Severe anemia - Improved with transfusion ordered - Iron def noted also - Patient with multiple antibodies delaying transfusion - ?Autoimmune, await Hemeonc input - occult blood negative, avoid all antiplatelet medications at this time SLE flareup - Continue steroids Bilateral otitis media - Continue IV antibiotic -Cefriaxone stopped and patient started on cefepime to cover for GPC AND GNB including pseudomonas -ID consult requested and input noted -ENT strongly encouraged out patient, and patient verbalized understanding SIRS secondary to Acute Cystitis-POA - Continue Abx, check urine culture Type 2 HI secondary to MARITZA - Patient denies any chest pain Decreased appetite - megestrol ordered - Nutrition consult, Check Albumin level DVT prophylaxis - SCDs because of severe anemia Disposition - Continue inpatient care CODE STATUS Full Discussed with patient, nephrology and Hematology Discharge in 24 hours if ok with ID, NEPRHOLOGY AND HEMONC History Interval history: patient seen and examined in no acute distress. no new complaints Hospitalist Physical - Physical exam Narrative exam: VITAL SIGNS: Reviewed. GENERAL: The patient appeared well nourished and normally developed. Vital signs as documented. HEAD: No signs of head trauma. EYES: Pupils are equal. Extraocular motions intact. EARS: Hearing intact. MOUTH: Oropharynx is normal. NECK: No adenopathy, no JVD. CHEST: Chest with clear breath sounds bilaterally. No wheezes, rales, or rhonchi. CARDIAC: Regular rate and rhythm. S1 and S2, without murmurs, gallops, or rubs. VASCULAR: No Edema. Peripheral pulses normal and equal in all extremities. ABDOMEN: Soft, without detectable tenderness. No sign of distention. No rebound or guarding, and no masses palpated. Bowel Sounds normal. MUSCULOSKELETAL: Good range of motion of all major joints. Extremities without clubbing, cyanosis or edema. NEUROLOGIC EXAM: Alert and oriented x 3. No focal sensory or strength deficits. Speech normal. Follows commands. PSYCHIATRIC: Mood normal. SKIN: No rash or lesions. - Constitutional Vitals: Temp Pulse Resp BP Pulse Ox 98.2 F 40 L 20 142/66 100 05/14/17 04:41 05/14/17 11:00 05/14/17 10:51 05/14/17 04:41 05/14/17 00:11 General appearance: Present: no acute distress Results - Labs CBC & Chem 7: 05/14/17 05:06 05/14/17 05:06 Labs: Laboratory Last Values WBC 4.3 K/mm3 (4.5-11.0) L 05/14/17 05:06 RBC 3.09 M/mm3 (3.65-5.03) L 05/14/17 05:06 Hgb 8.4 gm/dl (10.1-14.3) L 05/14/17 05:06 Hct 26.1 % (30.3-42.9) L 05/14/17 05:06 MCV 85 fl (79-97) 05/14/17 05:06 MCH 27 pg (28-32) L 05/14/17 05:06 MCHC 32 % (30-34) 05/14/17 05:06 RDW 18.3 % (13.2-15.2) H 05/14/17 05:06 Plt Count 54 K/mm3 (140-440) L 05/14/17 05:06 Lymph % (Auto) 5.7 % (13.4-35.0) L 05/12/17 04:46 [place] % (Auto) 7.2 % (0.0-7.3) 05/12/17 04:46 Eos % (Auto) 0.0 % (0.0-4.3) 05/12/17 04:46 Baso % (Auto) 0.1 % (0.0-1.8) 05/12/17 04:46 Lymph # 0.3 K/mm3 (1.2-5.4) L 05/12/17 04:46 [place] # 0.4 K/mm3 (0.0-0.8) 05/12/17 04:46 Eos # 0.0 K/mm3 (0.0-0.4) 05/12/17 04:46 Baso # 0.0 K/mm3 (0.0-0.1) 05/12/17 04:46 Add Manual Diff Complete 05/14/17 05:06 Total Counted 100 05/14/17 05:06 Seg Neutrophils % 87.0 % (40.0-70.0) H 05/12/17 04:46 Seg Neuts % (Manual) 86.0 % (40.0-70.0) H 05/14/17 05:06 Band Neutrophils % 6.0 % 05/14/17 05:06 Lymphocytes % (Manual) 6.0 % (13.4-35.0) L 05/14/17 05:06 Reactive Lymphs % (Man) 0 % 05/14/17 05:06 Monocytes % (Manual) 2.0 % (0.0-7.3) 05/14/17 05:06 Eosinophils % (Manual) 0 % (0.0-4.3) 05/14/17 05:06 Basophils % (Manual) 0 % (0.0-1.8) 05/14/17 05:06 Metamyelocytes % 0 % 05/14/17 05:06 Myelocytes % 0 % 05/14/17 05:06 Promyelocytes % 0 % 05/14/17 05:06 Blast Cells % 0 % 05/14/17 05:06 Nucleated RBC % 2.0 % (0.0-0.9) H 05/14/17 05:06 Seg Neutrophils # 4.4 K/mm3 (1.8-7.7) 05/12/17 04:46 Seg Neutrophils # Man 3.7 K/mm3 (1.8-7.7) 05/14/17 05:06 Band Neutrophils # 0.3 K/mm3 05/14/17 05:06 Lymphocytes # (Manual) 0.3 K/mm3 (1.2-5.4) L 05/14/17 05:06 Abs React Lymphs (Man) 0.0 K/mm3 05/14/17 05:06 Monocytes # (Manual) 0.1 K/mm3 (0.0-0.8) 05/14/17 05:06 Eosinophils # (Manual) 0.0 K/mm3 (0.0-0.4) 05/14/17 05:06 Basophils # (Manual) 0.0 K/mm3 (0.0-0.1) 05/14/17 05:06 Metamyelocytes # 0.0 K/mm3 05/14/17 05:06 Myelocytes # 0.0 K/mm3 05/14/17 05:06 Promyelocytes # 0.0 K/mm3 05/14/17 05:06 Blast Cells # 0.0 K/mm3 05/14/17 05:06 WBC Morphology Not Reportable 05/14/17 05:06 Hypersegmented Neuts Not Reportable 05/14/17 05:06 Hyposegmented Neuts Not Reportable 05/14/17 05:06 Hypogranular Neuts Not Reportable 05/14/17 05:06 Smudge Cells Not Reportable 05/14/17 05:06 Toxic Granulation Not Reportable 05/14/17 05:06 Toxic Vacuolation Not Reportable 05/14/17 05:06 Dohle Bodies Not Reportable 05/14/17 05:06 Pelger-Huet Anomaly Not Reportable 05/14/17 05:06 Chevy Rods Not Reportable 05/14/17 05:06 Platelet Estimate Consistent w auto 05/14/17 05:06 Clumped Platelets Not Reportable 05/14/17 05:06 Plt Clumps, EDTA Not Reportable 05/14/17 05:06 Large Platelets Not Reportable 05/14/17 05:06 Giant Platelets Not Reportable 05/14/17 05:06 Platelet Satelliting Not Reportable 05/14/17 05:06 Plt Morphology Comment Not Reportable 05/14/17 05:06 RBC Morphology Not Reportable 05/14/17 05:06 Dimorphic RBCs Not Reportable 05/14/17 05:06 Polychromasia Not Reportable 05/14/17 05:06 Hypochromasia Not Reportable 05/14/17 05:06 Poikilocytosis Not Reportable 05/14/17 05:06 Basophilic Stippling Rare 05/13/17 05:17 Anisocytosis 1+ 05/14/17 05:06 Microcytosis 1+ 05/14/17 05:06 Macrocytosis Not Reportable 05/14/17 05:06 Spherocytes Not Reportable 05/14/17 05:06 Pappenheimer Bodies Not Reportable 05/14/17 05:06 Sickle Cells Not Reportable 05/14/17 05:06 Target Cells Not Reportable 05/14/17 05:06 Tear Drop Cells Few 05/14/17 05:06 Ovalocytes 1+ 05/14/17 05:06 Helmet Cells Not Reportable 05/14/17 05:06 Tam[place] Bodies Not Reportable 05/14/17 05:06 [place] Rings Not Reportable 05/14/17 05:06 Angeli Cells Not Reportable 05/14/17 05:06 Bite Cells Not Reportable 05/14/17 05:06 Crenated Cell Not Reportable 05/14/17 05:06 Elliptocytes Not Reportable 05/14/17 05:06 Acanthocytes (Spur) Not Reportable 05/14/17 05:06 Rouleaux Not Reportable 05/14/17 05:06 Hemoglobin C Crystals Not Reportable 05/14/17 05:06 Schistocytes Not Reportable 05/14/17 05:06 Malaria parasites Not Reportable 05/14/17 05:06 ESR 84 mm/Hr (0-20) 05/12/17 13:05 Percent Retic 2.14 % (0.78-2.58) 05/12/17 13:05 Driss Bodies Not Reportable 05/14/17 05:06 Hem Pathologist Commnt No 05/14/17 05:06 POC ABG pH 7.313 (7.35-7.45) L 05/09/17 19:00 POC ABG pCO2 29.3 (35-45) L 05/09/17 19:00 POC ABG pO2 103 (80-105) 05/09/17 19:00 POC ABG HCO3 14.9 05/09/17 19:00 POC ABG Total CO2 16 05/09/17 19:00 POC ABG O2 Sat 97 05/09/17 19:00 POC ABG Base Excess -11 05/09/17 19:00 FiO2 21 % 05/09/17 19:00 Sodium 147 mmol/L (137-145) H 05/14/17 05:06 Potassium 4.0 mmol/L (3.6-5.0) 05/14/17 05:06 Chloride 107.2 mmol/L (98-107) H 05/14/17 05:06 Carbon Dioxide 33 mmol/L (22-30) H 05/14/17 05:06 Anion Gap 11 mmol/L 05/14/17 05:06 BUN 43 mg/dL (7-17) H 05/14/17 05:06 Creatinine 1.3 mg/dL (0.7-1.2) H 05/14/17 05:06 Estimated GFR 59 ml/min 05/14/17 05:06 BUN/Creatinine Ratio 33 % 05/14/17 05:06 Glucose 119 mg/dL (65-100) H 05/14/17 05:06 POC Glucose 138 (70-105) H 05/14/17 15:52 Calcium 7.2 mg/dL (8.4-10.2) L 05/14/17 05:06 Phosphorus 3.50 mg/dL (2.5-4.5) D 05/14/17 05:06 Magnesium 2.40 mg/dL (1.7-2.3) H 05/09/17 13:19 Iron 76 ug/dL (37-170) 05/12/17 13:05 TIBC 173 mcg/dL (250-450) L 05/12/17 13:05 % Saturation 43.93 % 05/12/17 13:05 Transferrin 160 mg/dl (192-382) L 05/12/17 13:05 Ferritin 779.1 ng/mL (13.0-400.0) H 05/12/17 13:05 Total Bilirubin < 0.20 mg/dL (0.1-1.2) 05/12/17 13:05 Direct Bilirubin < 0.2 mg/dL (0-0.2) 05/12/17 13:05 Indirect Bilirubin 0.0 mg/dL 05/12/17 13:05 AST 49 units/L (5-40) H 05/12/17 13:05 ALT 38 units/L (7-56) 05/12/17 13:05 Alkaline Phosphatase 37 units/L (35-129) 05/12/17 13:05 Lactate Dehydrogenase 829 units/L (91-180) H 05/12/17 13:05 Total Creatine Kinase 212 units/L (30-135) H 05/11/17 12:48 CK-MB (CK-2) 6.1 ng/mL (0.0-4.0) H 05/11/17 12:48 CK-MB (CK-2) Rel Index 2.8 (0-4) 05/11/17 12:48 Troponin T 0.096 ng/mL (0.00-0.029) H 05/11/17 12:48 C-Reactive Protein 0.10 mg/dL (0.00-1.30) 05/11/17 16:07 Total Protein 4.6 g/dL (6.3-8.2) L D 05/12/17 13:05 Albumin 2.0 g/dL (3.9-5) L 05/12/17 13:05 Albumin/Globulin Ratio 0.8 % 05/12/17 13:05 Vitamin B12 1311 pg/mL (211-911) H 05/12/17 13:05 Folate > 20 ng/mL (7.3-26.0) 05/12/17 13:05 PTH Intact 117.2 pg/mL (15-65) H 05/09/17 13:19 Urine Color Yellow (Yellow) 05/11/17 10:43 Urine Turbidity Clear (Clear) 05/11/17 10:43 Urine pH 6.0 (5.0-7.0) 05/11/17 10:43 Ur Specific [place] 1.010 (1.003-1.030) 05/11/17 10:43 Urine Protein 100 mg/dl mg/dL (Negative) 05/11/17 10:43 Urine Glucose (UA) Neg mg/dL (Negative) 05/11/17 10:43 Urine Ketones Neg mg/dL (Negative) 05/11/17 10:43 Urine Blood Mod (Negative) 05/11/17 10:43 Urine Nitrite Neg (Negative) 05/11/17 10:43 Ur Reducing Substances Not Reportable 05/08/17 Unknown Urine Bilirubin Neg (Negative) 05/11/17 10:43 Urine Ictotest Not Reportable 05/08/17 Unknown Urine Urobilinogen < 2.0 mg/dL (<2.0) 05/11/17 10:43 Ur Leukocyte Esterase Neg (Negative) 05/11/17 10:43 Urine WBC (Auto) 5.0 /HPF (0.0-6.0) 05/11/17 10:43 Urine RBC (Auto) 10.0 /HPF (0.0-6.0) 05/11/17 10:43 U Epithel Cells (Auto) 5.0 /HPF (0-13.0) 05/11/17 10:43 Urine Bacteria (Auto) 2+ /HPF (Negative) 05/08/17 Unknown Urine Mucus Few /HPF 05/08/17 Unknown Urine Eosinophils None seen (None Seen) 05/11/17 Unknown Urine Osmolality 344 Mosm/kg 05/09/17 02:36 Urine Creatinine 44.1 mg/dL (0.1-20.0) H 05/11/17 10:43 Protein/Creatinin Ratio 2.61 05/11/17 10:43 Urine Sodium 30 mmol/L 05/09/17 02:36 Urine Total Protein 115 mg/dL (5-11.8) H 05/11/17 10:43 Urine HCG, Qual Negative (Negative) 05/08/17 Unknown MALU Screen Positive (Negative) H 05/09/17 13:19 MALU Titer 1:640 (Negative) H 05/09/17 13:19 MALU Pattern Homogeneous 05/09/17 13:19 Proteinase 3 (PR3) Ab <1.0 AI (<1.0) 05/11/17 12:48 Myeloperoxidase Ab <1.0 AI (<1.0) 05/11/17 12:48 Double Strand DNA Ab 104 IU/mL (<=4) H 05/09/17 13:19 Glomerular Base Mem IgG <1.0 AI (<1.0) 05/11/17 12:48 Complement C3 20 mg/dL (90-180) L 05/09/17 13:19 Complement C4 6 mg/dL (16-47) L 05/09/17 13:19 Tot Complement (CH50) <10 U/mL (31-60) L 05/09/17 13:19 Hep Bs Antigen Non-reactive (Negative) 05/11/17 12:48 Hepatitis C Antibody Non-reactive (NonReactive) 05/11/17 12:48 HIV 1&2 Antibody Rapid Non react (Non React) 05/11/17 12:48 HIV P24 Antigen Non react (Non React) 05/11/17 12:48 Schistocytes Smear Rare 05/11/17 12:48 Blood Type AB POSITIVE 05/10/17 08:12 Antibody Screen Positive 05/10/17 08:12 FRANDY Antibody Screen Positive 05/10/17 08:12 Antibody Identification Anti-IH Warm Auto Antibody 05/10/17 08:12 Antibody Identification Anti-IH Warm Auto Antibody 05/10/17 08:12 Direct Antiglob Test Positive 05/10/17 08:12 ABDIRAHMAN (IgG-AHG) Positive 05/10/17 08:12 ABDIRAHMAN, Poly Interpret Positive 05/10/17 08:12 ABDIRAHMAN, Anti-C3 Negative 05/10/17 08:12 Crossmatch See Detail 05/10/17 08:12
[2017-05-15] MEDS: NYSTATIN PO SCH ×4 (00:49→18:44)
[2017-05-15] MEDS: TYLENOL PO PRN ×2 (05:01→15:28)
[2017-05-15 05:42] LABS: Hematocrit 25.2 % (30.3-42.9); Hemoglobin 8.1 gm/dl (10.1-14.3); Mean Corpuscular HGB Conc 32 % (30-34); Mean Corpuscular Hemoglobin 28 pg (28-32); Mean Corpuscular Volume 87 fl (79-97); Red Blood Count 2.91 M/mm3 (3.65-5.03); Red Cell Distribution Width 18.6 % (13.2-15.2); White Blood Count 5.7 K/mm3 (4.5-11.0)
[2017-05-15 05:44] LABS: Platelet Count 69 K/mm3 (140-440)
[2017-05-15 05:48] LABS: Anion Gap 14 mmol/L; BUN/Creatinine Ratio 38; Blood Urea Nitrogen 46 mg/dL (7-17); Calcium 7.5 mg/dL (8.4-10.2); Carbon Dioxide 29 mmol/L (22-30); Chloride 109.3 mmol/L (98-107); Glucose 133 mg/dL (65-100); Potassium 3.9 mmol/L (3.6-5.0); Sodium 148 mmol/L (137-145)
[2017-05-15 06:58] LABS: Anisocytosis 1+; Basophils % (Manual) 0 % (0.0-1.8); Blastocytes % (Manual) 0 %; Eosinophils % (Manual) 0 % (0.0-4.3); Ovalocytes 1+; Polychromasia 1+; Tear Drop Cells Few
[2017-05-15 06:59] LABS: Smudge Cells Few
[2017-05-15 07:00] LABS: Diff Status Complete; Platelet Estimate Consistent w Auto
--- NOTE | 2017-05-15 10:57 | Hem/Onc Progress Note ---
Assessment and Plan Labs have improved on pulse steroids. LDH has also come down. Patient seems to be confused today.? Steroids psychosis. Discussed with Dr. solis. He will order MRI of the head to rule out any lupus related [employer] issues. If this continues, may have to decrease steroids . Subjective Date of service: 05/15/17 Interval history: Patient seems to be off today. She seems scared and a bit paranoid. Objective - Constitutional Vitals: Last Vital Signs Temp 97.9 F 05/15/17 04:32 Pulse 45 L 05/15/17 04:32 Resp 18 05/15/17 04:32 BP 149/76 05/15/17 04:32 Pulse Ox 99 05/15/17 04:32 - Neck Neck: supple - Respiratory Respiratory: bilateral: CTA - Cardiovascular Rhythm: regular Extremities: No edema - Gastrointestinal General gastrointestinal: Present: soft - Labs Lab Results: Laboratory Results - last 24 hr 05/14/17 05/14/17 05/15/17 11:28 15:52 04:42 WBC 5.7 RBC 2.91 L Hgb 8.1 L Hct 25.2 L MCV 87 MCH 28 MCHC 32 RDW 18.6 H Plt Count 69 L Add Manual Diff Complete Total Counted 100 Seg Neuts % (Manual) 78.0 H Band Neutrophils % 7.0 Lymphocytes % (Manual) 11.0 L Reactive Lymphs % (Man) 0 Monocytes % (Manual) 1.0 Eosinophils % (Manual) 0 Basophils % (Manual) 0 Metamyelocytes % 3.0 Myelocytes % 0 Promyelocytes % 0 Blast Cells % 0 Nucleated RBC % 3.0 H Seg Neutrophils # Man 4.4 Band Neutrophils # 0.4 Lymphocytes # (Manual) 0.6 L Abs React Lymphs (Man) 0.0 Monocytes # (Manual) 0.1 Eosinophils # (Manual) 0.0 Basophils # (Manual) 0.0 Metamyelocytes # 0.2 Myelocytes # 0.0 Promyelocytes # 0.0 Blast Cells # 0.0 WBC Morphology Not Reportable Hypersegmented Neuts Not Reportable Hyposegmented Neuts Not Reportable Hypogranular Neuts Not Reportable Smudge Cells Few Toxic Granulation Not Reportable Toxic Vacuolation Not Reportable Dohle Bodies Not Reportable Pelger-Huet Anomaly Not Reportable Chevy Rods Not Reportable Platelet Estimate Consistent w auto Clumped Platelets Not Reportable Plt Clumps, EDTA Not Reportable Large Platelets Not Reportable Giant Platelets Not Reportable Platelet Satelliting Not Reportable Plt Morphology Comment Not Reportable RBC Morphology Not Reportable Dimorphic RBCs Not Reportable Polychromasia 1+ Hypochromasia Not Reportable Poikilocytosis Not Reportable Anisocytosis 1+ Microcytosis Not Reportable Macrocytosis Not Reportable Spherocytes Not Reportable Pappenheimer Bodies Not Reportable Sickle Cells Not Reportable Target Cells Not Reportable Tear Drop Cells Few Ovalocytes 1+ Helmet Cells Not Reportable Tam-[place] Bodies Not Reportable [place] Rings Not Reportable Angeli Cells Not Reportable Bite Cells Not Reportable Crenated Cell Not Reportable Elliptocytes Not Reportable Acanthocytes (Spur) Not Reportable Rouleaux Not Reportable Hemoglobin C Crystals Not Reportable Schistocytes Not Reportable Malaria parasites Not Reportable Driss Bodies Not Reportable Hem Pathologist Commnt No Sodium Potassium Chloride Carbon Dioxide Anion Gap BUN Creatinine Estimated GFR BUN/Creatinine Ratio Glucose POC Glucose 111 H 138 H Calcium Phosphorus Magnesium Lactate Dehydrogenase Urine Creatinine Protein/Creatinin Ratio Urine Total Protein 05/15/17 05/15/17 05/15/17 04:42 04:42 05:00 WBC RBC Hgb Hct MCV MCH MCHC RDW Plt Count Add Manual Diff Total Counted Seg Neuts % (Manual) Band Neutrophils % Lymphocytes % (Manual) Reactive Lymphs % (Man) Monocytes % (Manual) Eosinophils % (Manual) Basophils % (Manual) Metamyelocytes % Myelocytes % Promyelocytes % Blast Cells % Nucleated RBC % Seg Neutrophils # Man Band Neutrophils # Lymphocytes # (Manual) Abs React Lymphs (Man) Monocytes # (Manual) Eosinophils # (Manual) Basophils # (Manual) Metamyelocytes # Myelocytes # Promyelocytes # Blast Cells # WBC Morphology Hypersegmented Neuts Hyposegmented Neuts Hypogranular Neuts Smudge Cells Toxic Granulation Toxic Vacuolation Dohle Bodies Pelger-Huet Anomaly [place] Rods Platelet Estimate Clumped Platelets Plt Clumps, EDTA Large Platelets Giant Platelets Platelet Satelliting Plt Morphology Comment RBC Morphology Dimorphic RBCs Polychromasia Hypochromasia Poikilocytosis Anisocytosis Microcytosis Macrocytosis Spherocytes Pappenheimer Bodies Sickle Cells Target Cells Tear Drop Cells Ovalocytes Helmet Cells Tam-[place] Bodies [place] Rings Angeli Cells Bite Cells Crenated Cell Elliptocytes Acanthocytes (Spur) Rouleaux Hemoglobin C Crystals Schistocytes Malaria parasites Driss Bodies Hem Pathologist Commnt Sodium 148 H Potassium 3.9 Chloride 109.3 H Carbon Dioxide 29 Anion Gap 14 BUN 46 H Creatinine 1.2 Estimated GFR > 60 BUN/Creatinine Ratio 38 Glucose 133 H POC Glucose Calcium 7.5 L Phosphorus 3.30 Magnesium Lactate Dehydrogenase 794 H Urine Creatinine 81.9 H Protein/Creatinin Ratio 2.33 Urine Total Protein 191 H 05/15/17 05:00 WBC RBC Hgb Hct MCV MCH MCHC RDW Plt Count Add Manual Diff Total Counted Seg Neuts % (Manual) Band Neutrophils % Lymphocytes % (Manual) Reactive Lymphs % (Man) Monocytes % (Manual) Eosinophils % (Manual) Basophils % (Manual) Metamyelocytes % Myelocytes % Promyelocytes % Blast Cells % Nucleated RBC % Seg Neutrophils # Man Band Neutrophils # Lymphocytes # (Manual) Abs React Lymphs (Man) Monocytes # (Manual) Eosinophils # (Manual) Basophils # (Manual) Metamyelocytes # Myelocytes # Promyelocytes # Blast Cells # WBC Morphology Hypersegmented Neuts Hyposegmented Neuts Hypogranular Neuts Smudge Cells Toxic Granulation Toxic Vacuolation Dohle Bodies Pelger-Huet Anomaly [place] Rods Platelet Estimate Clumped Platelets Plt Clumps, EDTA Large Platelets Giant Platelets Platelet Satelliting Plt Morphology Comment RBC Morphology Dimorphic RBCs Polychromasia Hypochromasia Poikilocytosis Anisocytosis Microcytosis Macrocytosis Spherocytes Pappenheimer Bodies Sickle Cells Target Cells Tear Drop Cells Ovalocytes Helmet Cells Tam-[place] Bodies [place] Rings Angeli Cells Bite Cells Crenated Cell Elliptocytes Acanthocytes (Spur) Rouleaux Hemoglobin C Crystals Schistocytes Malaria parasites Driss Bodies Hem Pathologist Commnt Sodium Potassium Chloride Carbon Dioxide Anion Gap BUN Creatinine Estimated GFR BUN/Creatinine Ratio Glucose POC Glucose Calcium Phosphorus Magnesium 1.80 Lactate Dehydrogenase Urine Creatinine Protein/Creatinin Ratio Urine Total Protein
[2017-05-15] MEDS: FOLVITE PO SCH (11:00)
[2017-05-15] MEDS: MEGACE PO SCH ×4 (11:00→22:38)
--- NOTE | 2017-05-15 14:47 | Progress Note ---
Assessment and Plan Acute Renal failure possible pre renal/ATN vs Lupus nephritis: Unknown CKD: -Cr in 2016 was 0.6 but no recent baseline available so unknown if has CKD or not. Came in on 05/08 with Cr of 4. -Cr trending down. -Finishing Solumedrol pulse today. Prednisone 60 mg daily from tomorrow. -Will need Renal biopsy once Hg stable. -Renally dose all meds and avoid nephrotoxic meds Hypernatremia, Hypertonic: -Start D5W at 75 cc/hr. -Encourage PO water intake. Lupus: -On steroids -Recommend Rheum consult -Per primary Acute otitis media: -On Abx Anemia of chronic disease possible due to lupus: Leukopenia: Thrombocytopenia: -Pancytopenia likely from Lupus -Transfuse PRN per primary -Hemonc on board. Jimmy Balderrama MD Nephrology, Hypertension, Dialysis, Transplantation Phone no: [phone] Subjective Date of service: 05/15/17 Principal diagnosis: renal failure Interval history: Denies CP/SHOB. Objective - Exam Narrative Exam: GE: AAOX3, HEENT: PERRLA Neck: No JVD Chest: CTAB CVS: RRR Abd: BS+, soft, NT Ext: No BLE edema Neuro: AAOX3 - Vital Signs Vital signs: Vital Signs - 12hr 05/15/17 05/15/17 04:32 10:00 Temperature 97.9 F Pulse Rate 45 L Pulse Rate [ 57 L From Monitor] Respiratory 18 Rate Blood Pressure 149/76 O2 Sat by Pulse 99 Oximetry - Lab 05/15/17 04:42 05/15/17 04:42 Most recent lab results Calcium 7.5 mg/dL (8.4-10.2) L 05/15/17 04:42 Phosphorus 3.30 mg/dL (2.5-4.5) 05/15/17 04:42 Magnesium 1.80 mg/dL (1.7-2.3) 05/15/17 05:00 Urine Creatinine 81.9 mg/dL (0.1-20.0) H 05/15/17 05:00 Urine Sodium 30 mmol/L 05/09/17 02:36 Urine Total Protein 191 mg/dL (5-11.8) H 05/15/17 05:00
[2017-05-15] MEDS: D5W 1,000 ML IV SCH (15:29)
[2017-05-15] MEDS: MAXIPIME/NS 1 GM/100 ML 1 GM/100 ML BAG IV SCH ×2 (15:30→22:35)
--- NOTE | 2017-05-15 15:48 | Progress Note ---
Assessment and Plan Assessment and plan: This is a 26 year old female with PMH of Lupus (diagnosed in 2008) and anemia who presented to [facility] today with complaints of generalized weakness, fatigue, nosebleed (woke up with nosebleed), decreased appetite, and bilateral ear pain with drainage for the past 3-4 days. Patient states she was hospitalized [facility] overnight last week for suspected lupus flare up, prescribed prednisone upon discharge. Patient also states she had an infection (not sure of source) when she was at [place], no antibiotics prescribed. Acute Metabolic Encephalopathy * Possible steroid induced psychosis vs seizure. Mother reports prior remote hx of seizure * STAT CT HEAD FOLLOW WITH MRI, patient with not fever * Neurology consult Presumed Seizure * Ativan PRN * seizure precautions Acute kidney injury -improving down to 1.2 - ATN versus lupus nephritis - Nephrology consulted - Creatinine improved from 4-2.6 to morning - Plan per nephrology for renal biopsy once UTI treated - Patient was given IV fluids and steroids Thrombocytopenia - improving started on Pulse dose steroids. Continue to monitor. - Hematology input noted Severe anemia - Improved with transfusion ordered - Iron def noted also - Patient with multiple antibodies delaying transfusion - ?Autoimmune, await Hemeon input - occult blood negative, avoid all antiplatelet medications at this time SLE flareup - Continue steroids Bilateral otitis media - Continue IV antibiotic -Cefriaxone stopped and patient started on cefepime to cover for GPC AND GNB including pseudomonas -ID consult requested and input noted -ENT strongly encouraged out patient, and patient verbalized understanding SIRS secondary to Acute Cystitis-POA - Continue Abx, check urine culture Type 2 MD secondary to MARITZA - Patient denies any chest pain Decreased appetite - megestrol ordered - Nutrition consult, Check Albumin level DVT prophylaxis - SCDs because of severe anemia Disposition - Continue inpatient care CODE STATUS Full Discussed with patient, nephrology and Hematology Discussed with mother at bedside The high probability of a clinically significant, sudden or life threatening deterioration of the [neuro] system(s) required my full and direct attention, intervention and personal management. The aggregate critical care time was [35] minutes. This time is in addition to time spent performing reported procedures but includes the following: [x] Data Review and interpretation [x] Patient assessment and monitoring of vital signs [x] Documentation [x] Medication orders and management History Interval history: patient seen and examined in no acute distress. appears altered, not recognizing people and confabulating Hospitalist Physical - Physical exam Narrative exam: VITAL SIGNS: Reviewed. GENERAL: The patient appeared well nourished and normally developed. apprehensive Vital signs as documented. HEAD: No signs of head trauma. EYES: Pupils are equal. Extraocular motions intact. EARS: Hearing intact. MOUTH: Oropharynx is normal. NECK: No adenopathy, no JVD. CHEST: Chest with clear breath sounds bilaterally. No wheezes, rales, or rhonchi. CARDIAC: Regular rate and rhythm. S1 and S2, without murmurs, gallops, or rubs. VASCULAR: No Edema. Peripheral pulses normal and equal in all extremities. ABDOMEN: Soft, without detectable tenderness. No sign of distention. No rebound or guarding, and no masses palpated. Bowel Sounds normal. MUSCULOSKELETAL: Good range of motion of all major joints. Extremities without clubbing, cyanosis or edema. NEUROLOGIC EXAM: Alert and oriented x 2. confabulating found following series of questions. No focal sensory or strength deficits. Speech normal. Follows commands. PSYCHIATRIC: Mood normal. SKIN: No rash or lesions. - Constitutional Vitals: Temp Pulse Resp BP Pulse Ox 97.9 F 57 L 18 149/76 99 05/15/17 04:32 05/15/17 10:00 05/15/17 04:32 05/15/17 04:32 05/15/17 04:32 General appearance: Present: no acute distress Results - Labs CBC & Chem 7: 05/15/17 04:42 05/15/17 04:42 Labs: Laboratory Last Values WBC 5.7 K/mm3 (4.5-11.0) 05/15/17 04:42 RBC 2.91 M/mm3 (3.65-5.03) L 05/15/17 04:42 Hgb 8.1 gm/dl (10.1-14.3) L 05/15/17 04:42 Hct 25.2 % (30.3-42.9) L 05/15/17 04:42 MCV 87 fl (79-97) 05/15/17 04:42 MCH 28 pg (28-32) 05/15/17 04:42 MCHC 32 % (30-34) 05/15/17 04:42 RDW 18.6 % (13.2-15.2) H 05/15/17 04:42 Plt Count 69 K/mm3 (140-440) L 05/15/17 04:42 Lymph % (Auto) 5.7 % (13.4-35.0) L 05/12/17 04:46 [place] % (Auto) 7.2 % (0.0-7.3) 05/12/17 04:46 Eos % (Auto) 0.0 % (0.0-4.3) 05/12/17 04:46 Baso % (Auto) 0.1 % (0.0-1.8) 05/12/17 04:46 Lymph # 0.3 K/mm3 (1.2-5.4) L 05/12/17 04:46 [place] # 0.4 K/mm3 (0.0-0.8) 05/12/17 04:46 Eos # 0.0 K/mm3 (0.0-0.4) 05/12/17 04:46 Baso # 0.0 K/mm3 (0.0-0.1) 05/12/17 04:46 Add Manual Diff Complete 05/15/17 04:42 Total Counted 100 05/15/17 04:42 Seg Neutrophils % 87.0 % (40.0-70.0) H 05/12/17 04:46 Seg Neuts % (Manual) 78.0 % (40.0-70.0) H 05/15/17 04:42 Band Neutrophils % 7.0 % 05/15/17 04:42 Lymphocytes % (Manual) 11.0 % (13.4-35.0) L 05/15/17 04:42 Reactive Lymphs % (Man) 0 % 05/15/17 04:42 Monocytes % (Manual) 1.0 % (0.0-7.3) 05/15/17 04:42 Eosinophils % (Manual) 0 % (0.0-4.3) 05/15/17 04:42 Basophils % (Manual) 0 % (0.0-1.8) 05/15/17 04:42 Metamyelocytes % 3.0 % 05/15/17 04:42 Myelocytes % 0 % 05/15/17 04:42 Promyelocytes % 0 % 05/15/17 04:42 Blast Cells % 0 % 05/15/17 04:42 Nucleated RBC % 3.0 % (0.0-0.9) H 05/15/17 04:42 Seg Neutrophils # 4.4 K/mm3 (1.8-7.7) 05/12/17 04:46 Seg Neutrophils # Man 4.4 K/mm3 (1.8-7.7) 05/15/17 04:42 Band Neutrophils # 0.4 K/mm3 05/15/17 04:42 Lymphocytes # (Manual) 0.6 K/mm3 (1.2-5.4) L 05/15/17 04:42 Abs React Lymphs (Man) 0.0 K/mm3 05/15/17 04:42 Monocytes # (Manual) 0.1 K/mm3 (0.0-0.8) 05/15/17 04:42 Eosinophils # (Manual) 0.0 K/mm3 (0.0-0.4) 05/15/17 04:42 Basophils # (Manual) 0.0 K/mm3 (0.0-0.1) 05/15/17 04:42 Metamyelocytes # 0.2 K/mm3 05/15/17 04:42 Myelocytes # 0.0 K/mm3 05/15/17 04:42 Promyelocytes # 0.0 K/mm3 05/15/17 04:42 Blast Cells # 0.0 K/mm3 05/15/17 04:42 WBC Morphology Not Reportable 05/15/17 04:42 Hypersegmented Neuts Not Reportable 05/15/17 04:42 Hyposegmented Neuts Not Reportable 05/15/17 04:42 Hypogranular Neuts Not Reportable 05/15/17 04:42 Smudge Cells Few 05/15/17 04:42 Toxic Granulation Not Reportable 05/15/17 04:42 Toxic Vacuolation Not Reportable 05/15/17 04:42 Dohle Bodies Not Reportable 05/15/17 04:42 Pelger-Huet Anomaly Not Reportable 05/15/17 04:42 Chevy Rods Not Reportable 05/15/17 04:42 Platelet Estimate Consistent w auto 05/15/17 04:42 Clumped Platelets Not Reportable 05/15/17 04:42 Plt Clumps, EDTA Not Reportable 05/15/17 04:42 Large Platelets Not Reportable 05/15/17 04:42 Giant Platelets Not Reportable 05/15/17 04:42 Platelet Satelliting Not Reportable 05/15/17 04:42 Plt Morphology Comment Not Reportable 05/15/17 04:42 RBC Morphology Not Reportable 05/15/17 04:42 Dimorphic RBCs Not Reportable 05/15/17 04:42 Polychromasia 1+ 05/15/17 04:42 Hypochromasia Not Reportable 05/15/17 04:42 Poikilocytosis Not Reportable 05/15/17 04:42 Basophilic Stippling Rare 05/13/17 05:17 Anisocytosis 1+ 05/15/17 04:42 Microcytosis Not Reportable 05/15/17 04:42 Macrocytosis Not Reportable 05/15/17 04:42 Spherocytes Not Reportable 05/15/17 04:42 Pappenheimer Bodies Not Reportable 05/15/17 04:42 Sickle Cells Not Reportable 05/15/17 04:42 Target Cells Not Reportable 05/15/17 04:42 Tear Drop Cells Few 05/15/17 04:42 Ovalocytes 1+ 05/15/17 04:42 Helmet Cells Not Reportable 05/15/17 04:42 Tam-[place] Bodies Not Reportable 05/15/17 04:42 [place] Rings Not Reportable 05/15/17 04:42 Angeli Cells Not Reportable 05/15/17 04:42 Bite Cells Not Reportable 05/15/17 04:42 Crenated Cell Not Reportable 05/15/17 04:42 Elliptocytes Not Reportable 05/15/17 04:42 Acanthocytes (Spur) Not Reportable 05/15/17 04:42 Rouleaux Not Reportable 05/15/17 04:42 Hemoglobin C Crystals Not Reportable 05/15/17 04:42 Schistocytes Not Reportable 05/15/17 04:42 Malaria parasites Not Reportable 05/15/17 04:42 ESR 84 mm/Hr (0-20) 05/12/17 13:05 Percent Retic 2.14 % (0.78-2.58) 05/12/17 13:05 Driss Bodies Not Reportable 05/15/17 04:42 Hem Pathologist Commnt No 05/15/17 04:42 POC ABG pH 7.313 (7.35-7.45) L 05/09/17 19:00 POC ABG pCO2 29.3 (35-45) L 05/09/17 19:00 POC ABG pO2 103 (80-105) 05/09/17 19:00 POC ABG HCO3 14.9 05/09/17 19:00 POC ABG Total CO2 16 05/09/17 19:00 POC ABG O2 Sat 97 05/09/17 19:00 POC ABG Base Excess -11 05/09/17 19:00 FiO2 21 % 05/09/17 19:00 Sodium 148 mmol/L (137-145) H 05/15/17 04:42 Potassium 3.9 mmol/L (3.6-5.0) 05/15/17 04:42 Chloride 109.3 mmol/L (98-107) H 05/15/17 04:42 Carbon Dioxide 29 mmol/L (22-30) 05/15/17 04:42 Anion Gap 14 mmol/L 05/15/17 04:42 BUN 46 mg/dL (7-17) H 05/15/17 04:42 Creatinine 1.2 mg/dL (0.7-1.2) 05/15/17 04:42 Estimated GFR > 60 ml/min 05/15/17 04:42 BUN/Creatinine Ratio 38 % 05/15/17 04:42 Glucose 133 mg/dL (65-100) H 05/15/17 04:42 POC Glucose 138 (70-105) H 05/14/17 15:52 Calcium 7.5 mg/dL (8.4-10.2) L 05/15/17 04:42 Phosphorus 3.30 mg/dL (2.5-4.5) 05/15/17 04:42 Magnesium 1.80 mg/dL (1.7-2.3) 05/15/17 05:00 Iron 76 ug/dL (37-170) 05/12/17 13:05 TIBC 173 mcg/dL (250-450) L 05/12/17 13:05 % Saturation 43.93 % 05/12/17 13:05 Transferrin 160 mg/dl (192-382) L 05/12/17 13:05 Ferritin 779.1 ng/mL (13.0-400.0) H 05/12/17 13:05 Total Bilirubin < 0.20 mg/dL (0.1-1.2) 05/12/17 13:05 Direct Bilirubin < 0.2 mg/dL (0-0.2) 05/12/17 13:05 Indirect Bilirubin 0.0 mg/dL 05/12/17 13:05 AST 49 units/L (5-40) H 05/12/17 13:05 ALT 38 units/L (7-56) 05/12/17 13:05 Alkaline Phosphatase 37 units/L (35-129) 05/12/17 13:05 Lactate Dehydrogenase 794 units/L (91-180) H 05/15/17 04:42 Total Creatine Kinase 212 units/L (30-135) H 05/11/17 12:48 CK-MB (CK-2) 6.1 ng/mL (0.0-4.0) H 05/11/17 12:48 CK-MB (CK-2) Rel Index 2.8 (0-4) 05/11/17 12:48 Troponin T 0.096 ng/mL (0.00-0.029) H 05/11/17 12:48 C-Reactive Protein 0.10 mg/dL (0.00-1.30) 05/11/17 16:07 Total Protein 4.6 g/dL (6.3-8.2) L D 05/12/17 13:05 Albumin 2.0 g/dL (3.9-5) L 05/12/17 13:05 Albumin/Globulin Ratio 0.8 % 05/12/17 13:05 Vitamin B12 1311 pg/mL (211-911) H 05/12/17 13:05 Folate > 20 ng/mL (7.3-26.0) 05/12/17 13:05 PTH Intact 117.2 pg/mL (15-65) H 05/09/17 13:19 Urine Color Yellow (Yellow) 05/11/17 10:43 Urine Turbidity Clear (Clear) 05/11/17 10:43 Urine pH 6.0 (5.0-7.0) 05/11/17 10:43 Ur Specific [place] 1.010 (1.003-1.030) 05/11/17 10:43 Urine Protein 100 mg/dl mg/dL (Negative) 05/11/17 10:43 Urine Glucose (UA) Neg mg/dL (Negative) 05/11/17 10:43 Urine Ketones Neg mg/dL (Negative) 05/11/17 10:43 Urine Blood Mod (Negative) 05/11/17 10:43 Urine Nitrite Neg (Negative) 05/11/17 10:43 Ur Reducing Substances Not Reportable 05/08/17 Unknown Urine Bilirubin Neg (Negative) 05/11/17 10:43 Urine Ictotest Not Reportable 05/08/17 Unknown Urine Urobilinogen < 2.0 mg/dL (<2.0) 05/11/17 10:43 Ur Leukocyte Esterase Neg (Negative) 05/11/17 10:43 Urine WBC (Auto) 5.0 /HPF (0.0-6.0) 05/11/17 10:43 Urine RBC (Auto) 10.0 /HPF (0.0-6.0) 05/11/17 10:43 U Epithel Cells (Auto) 5.0 /HPF (0-13.0) 05/11/17 10:43 Urine Bacteria (Auto) 2+ /HPF (Negative) 05/08/17 Unknown Urine Mucus Few /HPF 05/08/17 Unknown Urine Eosinophils None seen (None Seen) 05/11/17 Unknown Urine Osmolality 344 Mosm/kg 05/09/17 02:36 Urine Creatinine 81.9 mg/dL (0.1-20.0) H 05/15/17 05:00 Protein/Creatinin Ratio 2.33 05/15/17 05:00 Urine Sodium 30 mmol/L 05/09/17 02:36 Urine Total Protein 191 mg/dL (5-11.8) H 05/15/17 05:00 Urine HCG, Qual Negative (Negative) 05/08/17 Unknown MALU Screen Positive (Negative) H 05/09/17 13:19 MALU Titer 1:640 (Negative) H 05/09/17 13:19 MALU Pattern Homogeneous 05/09/17 13:19 Proteinase 3 (PR3) Ab <1.0 AI (<1.0) 05/11/17 12:48 Myeloperoxidase Ab <1.0 AI (<1.0) 05/11/17 12:48 Double Strand DNA Ab 104 IU/mL (<=4) H 05/09/17 13:19 Glomerular Base Mem IgG <1.0 AI (<1.0) 05/11/17 12:48 Complement C3 20 mg/dL (90-180) L 05/09/17 13:19 Complement C4 6 mg/dL (16-47) L 05/09/17 13:19 Tot Complement (CH50) <10 U/mL (31-60) L 05/09/17 13:19 Hep Bs Antigen Non-reactive (Negative) 05/11/17 12:48 Hepatitis C Antibody Non-reactive (NonReactive) 05/11/17 12:48 HIV 1&2 Antibody Rapid Non react (Non React) 05/11/17 12:48 HIV P24 Antigen Non react (Non React) 05/11/17 12:48 Schistocytes Smear Rare 05/11/17 12:48 Blood Type AB POSITIVE 05/10/17 08:12 Antibody Screen Positive 05/10/17 08:12 FRANDY Antibody Screen Positive 05/10/17 08:12 Antibody Identification Anti-IH Warm Auto Antibody 05/10/17 08:12 Antibody Identification Anti-IH Warm Auto Antibody 05/10/17 08:12 Direct Antiglob Test Positive 05/10/17 08:12 ABDIRAHMAN (IgG-AHG) Positive 05/10/17 08:12 ABDIRAHMAN, Poly Interpret Positive 05/10/17 08:12 ABDIRAHMAN, Anti-C3 Negative 05/10/17 08:12 Crossmatch See Detail 05/10/17 08:12 - Imaging and Cardiology CT Scan - head: pending MRI - head: pending
[2017-05-15] MEDS ORDERED: ATIVAN IV ONE (16:43)
--- NOTE | 2017-05-15 16:58 | Cat Scan Report ---
FINAL REPORT EXAM: CT HEAD/BRAIN WO CON HISTORY: AMS TECHNIQUE: CT of the head was performed without intravenous contrast. PRIORS: None. FINDINGS: The ventricles are normal in shape and position. The ventricles are nondilated. No intracranial hemorrhage, mass, mass effect, midline shift or evidence of acute ischemic infarct. The basilar cisterns are patent. The paranasal sinuses are clear. The extracranial soft tissues demonstrate no abnormality. The calvarium is intact. The orbits are intact. The mastoid air cells are clear. IMPRESSION: No acute intracranial abnormality.
--- NOTE | 2017-05-15 17:27 | Consultation ---
History of Present Illness Consult date: 05/15/17 History of present illness: full consult is dictated on this patoent I soke to the mother extensively about prior hx of lupus and psychosis there was a documented seizure and therefore IV keppra should be used recommned MRI the current CT of theead is normal which is common in lupus cerebritis from [facility] admiossions she did have bone marrow biopsy diagnostic for lupus all labs are reviewed Thanks Past History Past Medical History: anemia, other (lupus) Medications and Allergies Allergies Allergy/AdvReac Type Severity Reaction Status Date / Time No Known Allergies Allergy Unverified 08/17/15 16:18 Home Medications Medication Instructions Recorded Confirmed Last Taken Type No Known Home Medications [No 05/10/17 05/10/17 Unknown History Reported Home Medications] Active Meds: Active Medications Acetaminophen (Tylenol) 650 mg PO Q4H PRN PRN Reason: Pain MILD(1-3)/Fever >100.5/OLIEVIRA Last Admin: 05/15/17 15:28 Dose: 650 mg Bisacodyl (Dulcolax) 10 mg NC QDAY PRN PRN Reason: Constipation unrelieved by MOM Folic Acid (Folvite) 1 mg PO QDAY [facility] Last Admin: 05/15/17 11:00 Dose: 1 mg Cefepime HCl (Maxipime/Ns 1 Gm/100 Ml) 1 gm in 100 mls @ 200 mls/hr IV Q12HR [facility] Last Admin: 05/15/17 15:30 Dose: 200 mls/hr Dextrose (D5w) 1,000 mls @ 75 mls/hr IV DIRECT [facility] Last Admin: 05/15/17 15:29 Dose: 75 mls/hr Lorazepam (Ativan) 2 mg IV Q4H PRN PRN Reason: Seizures Magnesium Hydroxide (Milk Of Magnesia) 30 ml PO Q4H PRN PRN Reason: Constipation Megestrol Acetate (Megace) 40 mg PO QID [facility] Last Admin: 05/15/17 15:00 Dose: 40 mg Nystatin (Nystatin) 500,000 unit PO Q6HR [facility] Last Admin: 05/15/17 13:00 Dose: 500,000 unit Ondansetron HCl (Zofran) 4 mg IV Q4H PRN PRN Reason: N/V unrelieved by Reglan Last Admin: 05/13/17 11:43 Dose: 4 mg Oxycodone/Acetaminophen (Percocet 5/325) 1 tab PO Q6H PRN PRN Reason: Pain, Moderate (4-6) Last Admin: 05/14/17 22:10 Dose: 1 tab Prednisone (Deltasone) 60 mg PO QDAY BIANKA Physical Examination - Vital Signs Vital Signs: Vital Signs Temp Pulse Resp BP Pulse Ox 98 F 129 H 20 100/70 100 05/08/17 17:19 05/08/17 17:19 05/08/17 17:19 05/08/17 17:19 05/08/17 17:19 Results - Laboratory Findings CBC and BMP: 05/15/17 04:42 05/15/17 04:42 Abnormal Lab Findings: Abnormal Labs 05/08/17 05/08/17 05/08/17 17:41 17:41 Unknown WBC RBC 3.06 L Hgb 8.1 L Hct 25.4 L MCH 26 L MCHC RDW 19.1 H Plt Count 86 L Lymph % (Auto) Lymph # 0.8 L Seg Neutrophils % 77.6 H Seg Neuts % (Manual) Lymphocytes % (Manual) Nucleated RBC % Lymphocytes # (Manual) POC ABG pH POC ABG pCO2 Sodium Potassium Chloride Carbon Dioxide 17 L BUN 99 H Creatinine 4.0 H Glucose 109 H POC Glucose Calcium 7.3 L Phosphorus Magnesium TIBC Transferrin Ferritin AST 133 H ALT 66 H Lactate Dehydrogenase Total Creatine Kinase CK-MB (CK-2) Troponin T Total Protein 6.1 L Albumin 2.5 L Vitamin B12 PTH Intact Urine WBC (Auto) 22.0 H Urine Creatinine Urine Total Protein MALU Screen MALU Titer Double Strand DNA Ab Complement C3 Complement C4 Tot Complement (CH50) Crossmatch 05/09/17 05/09/17 05/09/17 02:36 09:37 13:19 WBC RBC Hgb Hct MCH MCHC RDW Plt Count Lymph % (Auto) Lymph # Seg Neutrophils % Seg Neuts % (Manual) Lymphocytes % (Manual) Nucleated RBC % Lymphocytes # (Manual) POC ABG pH POC ABG pCO2 Sodium Potassium Chloride 111.0 H Carbon Dioxide 17 L BUN 89 H Creatinine 3.0 H Glucose 128 H POC Glucose Calcium 6.5 L Phosphorus Magnesium TIBC Transferrin Ferritin AST ALT Lactate Dehydrogenase Total Creatine Kinase CK-MB (CK-2) Troponin T Total Protein Albumin Vitamin B12 PTH Intact Urine WBC (Auto) Urine Creatinine 62.5 H Urine Total Protein MALU Screen Positive H MALU Titer 1:640 H Double Strand DNA Ab Complement C3 Complement C4 Tot Complement (CH50) Crossmatch 05/09/17 05/09/17 05/09/17 13:19 13:19 13:19 WBC RBC Hgb Hct MCH MCHC RDW Plt Count Lymph % (Auto) Lymph # Seg Neutrophils % Seg Neuts % (Manual) Lymphocytes % (Manual) Nucleated RBC % Lymphocytes # (Manual) POC ABG pH POC ABG pCO2 Sodium Potassium Chloride Carbon Dioxide BUN Creatinine Glucose POC Glucose Calcium Phosphorus Magnesium TIBC Transferrin Ferritin AST ALT Lactate Dehydrogenase Total Creatine Kinase CK-MB (CK-2) Troponin T Total Protein Albumin Vitamin B12 PTH Intact Urine WBC (Auto) Urine Creatinine Urine Total Protein MALU Screen MALU Titer Double Strand DNA Ab Complement C3 20 L Complement C4 6 L Tot Complement (CH50) <10 L Crossmatch 05/09/17 05/09/17 05/09/17 13:19 13:19 13:19 WBC RBC Hgb Hct MCH MCHC RDW Plt Count Lymph % (Auto) Lymph # Seg Neutrophils % Seg Neuts % (Manual) Lymphocytes % (Manual) Nucleated RBC % Lymphocytes # (Manual) POC ABG pH POC ABG pCO2 Sodium Potassium Chloride Carbon Dioxide BUN Creatinine Glucose POC Glucose Calcium Phosphorus 5.80 H Magnesium 2.40 H TIBC Transferrin Ferritin AST ALT Lactate Dehydrogenase Total Creatine Kinase CK-MB (CK-2) Troponin T Total Protein Albumin Vitamin B12 PTH Intact 117.2 H Urine WBC (Auto) Urine Creatinine Urine Total Protein MALU Screen MALU Titer Double Strand DNA Ab 104 H Complement C3 Complement C4 Tot Complement (CH50) Crossmatch 05/09/17 05/10/17 05/10/17 19:00 04:36 07:20 WBC 2.4 L RBC 2.25 L Hgb 5.9 L* 6.0 L Hct 18.5 L* D 19.3 L* MCH 26 L MCHC RDW 18.6 H Plt Count 57 L Lymph % (Auto) Lymph # 0.3 L Seg Neutrophils % 80.4 H Seg Neuts % (Manual) Lymphocytes % (Manual) Nucleated RBC % Lymphocytes # (Manual) POC ABG pH 7.313 L POC ABG pCO2 29.3 L Sodium Potassium Chloride Carbon Dioxide BUN Creatinine Glucose POC Glucose Calcium Phosphorus Magnesium TIBC Transferrin Ferritin AST ALT Lactate Dehydrogenase Total Creatine Kinase CK-MB (CK-2) Troponin T Total Protein Albumin Vitamin B12 PTH Intact Urine WBC (Auto) Urine Creatinine Urine Total Protein MALU Screen MALU Titer Double Strand DNA Ab Complement C3 Complement C4 Tot Complement (CH50) Crossmatch 05/10/17 05/10/17 05/10/17 08:12 09:44 09:44 WBC RBC Hgb Hct MCH MCHC RDW Plt Count Lymph % (Auto) Lymph # Seg Neutrophils % Seg Neuts % (Manual) Lymphocytes % (Manual) Nucleated RBC % Lymphocytes # (Manual) POC ABG pH POC ABG pCO2 Sodium Potassium Chloride 113.9 H Carbon Dioxide 17 L BUN 81 H Creatinine 2.6 H Glucose 129 H POC Glucose Calcium 7.2 L Phosphorus Magnesium TIBC Transferrin Ferritin AST ALT Lactate Dehydrogenase Total Creatine Kinase CK-MB (CK-2) Troponin T 0.091 H Total Protein Albumin Vitamin B12 PTH Intact Urine WBC (Auto) Urine Creatinine Urine Total Protein MALU Screen MALU Titer Double Strand DNA Ab Complement C3 Complement C4 Tot Complement (CH50) Crossmatch See Detail 05/10/17 05/10/17 05/10/17 16:41 19:32 19:32 WBC RBC Hgb 6.1 L Hct 19.1 L* MCH MCHC RDW Plt Count Lymph % (Auto) Lymph # Seg Neutrophils % Seg Neuts % (Manual) Lymphocytes % (Manual) Nucleated RBC % Lymphocytes # (Manual) POC ABG pH POC ABG pCO2 Sodium Potassium Chloride 112.6 H Carbon Dioxide 15 L BUN 80 H Creatinine 2.4 H Glucose 144 H POC Glucose Calcium 7.0 L Phosphorus Magnesium TIBC Transferrin Ferritin AST ALT Lactate Dehydrogenase Total Creatine Kinase 280 H CK-MB (CK-2) 6.6 H Troponin T Total Protein Albumin Vitamin B12 PTH Intact Urine WBC (Auto) Urine Creatinine Urine Total Protein MALU Screen MALU Titer Double Strand DNA Ab Complement C3 Complement C4 Tot Complement (CH50) Crossmatch 05/11/17 05/11/17 05/11/17 10:43 12:48 23:14 WBC RBC Hgb 7.7 L Hct 22.9 L MCH MCHC RDW Plt Count Lymph % (Auto) Lymph # Seg Neutrophils % Seg Neuts % (Manual) Lymphocytes % (Manual) Nucleated RBC % Lymphocytes # (Manual) POC ABG pH POC ABG pCO2 Sodium Potassium Chloride Carbon Dioxide BUN Creatinine Glucose POC Glucose Calcium Phosphorus Magnesium TIBC Transferrin Ferritin AST ALT Lactate Dehydrogenase Total Creatine Kinase 212 H CK-MB (CK-2) 6.1 H Troponin T 0.096 H Total Protein Albumin Vitamin B12 PTH Intact Urine WBC (Auto) Urine Creatinine 44.1 H Urine Total Protein 115 H MALU Screen MALU Titer Double Strand DNA Ab Complement C3 Complement C4 Tot Complement (CH50) Crossmatch 05/12/17 05/12/17 05/12/17 04:46 04:46 04:46 WBC RBC 2.70 L Hgb 7.9 L Hct 22.6 L MCH MCHC 35 H RDW 18.0 H Plt Count 56 L Lymph % (Auto) 5.7 L Lymph # 0.3 L Seg Neutrophils % 87.0 H Seg Neuts % (Manual) Lymphocytes % (Manual) Nucleated RBC % Lymphocytes # (Manual) POC ABG pH POC ABG pCO2 Sodium Potassium Chloride 112.8 H 113.0 H Carbon Dioxide 19 L 20 L BUN 66 H 68 H Creatinine 1.7 H 1.7 H Glucose 167 H 163 H POC Glucose Calcium 7.2 L 7.1 L Phosphorus Magnesium TIBC 170 L Transferrin Ferritin AST ALT Lactate Dehydrogenase 877 H Total Creatine Kinase CK-MB (CK-2) Troponin T Total Protein Albumin Vitamin B12 PTH Intact Urine WBC (Auto) Urine Creatinine Urine Total Protein MALU Screen MALU Titer Double Strand DNA Ab Complement C3 Complement C4 Tot Complement (CH50) Crossmatch 05/12/17 05/12/17 05/12/17 13:05 13:05 13:05 WBC RBC Hgb Hct MCH MCHC RDW Plt Count Lymph % (Auto) Lymph # Seg Neutrophils % Seg Neuts % (Manual) Lymphocytes % (Manual) Nucleated RBC % Lymphocytes # (Manual) POC ABG pH POC ABG pCO2 Sodium Potassium Chloride Carbon Dioxide BUN Creatinine Glucose POC Glucose Calcium Phosphorus Magnesium TIBC 173 L Transferrin 160 L Ferritin 779.1 H AST ALT Lactate Dehydrogenase Total Creatine Kinase CK-MB (CK-2) Troponin T Total Protein Albumin Vitamin B12 1311 H PTH Intact Urine WBC (Auto) Urine Creatinine Urine Total Protein MALU Screen MALU Titer Double Strand DNA Ab Complement C3 Complement C4 Tot Complement (CH50) Crossmatch 05/12/17 05/12/17 05/13/17 13:05 13:05 05:17 WBC RBC 2.60 L Hgb 7.3 L Hct 21.7 L MCH MCHC RDW 18.5 H Plt Count 45 L Lymph % (Auto) Lymph # Seg Neutrophils % Seg Neuts % (Manual) 87.0 H Lymphocytes % (Manual) 5.0 L Nucleated RBC % Lymphocytes # (Manual) 0.2 L POC ABG pH POC ABG pCO2 Sodium Potassium Chloride Carbon Dioxide BUN Creatinine Glucose POC Glucose Calcium Phosphorus Magnesium TIBC Transferrin Ferritin AST 49 H ALT Lactate Dehydrogenase 829 H Total Creatine Kinase CK-MB (CK-2) Troponin T Total Protein 4.6 L D Albumin 2.0 L Vitamin B12 PTH Intact Urine WBC (Auto) Urine Creatinine Urine Total Protein MALU Screen MALU Titer Double Strand DNA Ab Complement C3 Complement C4 Tot Complement (CH50) Crossmatch 05/13/17 05/13/17 05/14/17 05:17 10:57 05:06 WBC 4.3 L RBC 3.09 L Hgb 8.4 L Hct 26.1 L MCH 27 L MCHC RDW 18.3 H Plt Count 54 L Lymph % (Auto) Lymph # Seg Neutrophils % Seg Neuts % (Manual) 86.0 H Lymphocytes % (Manual) 6.0 L Nucleated RBC % 2.0 H Lymphocytes # (Manual) 0.3 L POC ABG pH POC ABG pCO2 Sodium 146 H Potassium 3.5 L Chloride 111.4 H Carbon Dioxide 31 H D BUN 53 H Creatinine 1.4 H Glucose 124 H POC Glucose 131 H Calcium 7.1 L Phosphorus Magnesium TIBC Transferrin Ferritin AST ALT Lactate Dehydrogenase Total Creatine Kinase CK-MB (CK-2) Troponin T Total Protein Albumin Vitamin B12 PTH Intact Urine WBC (Auto) Urine Creatinine Urine Total Protein MALU Screen MALU Titer Double Strand DNA Ab Complement C3 Complement C4 Tot Complement (CH50) Crossmatch 05/14/17 05/14/17 05/14/17 05:06 07:57 11:28 WBC RBC Hgb Hct MCH MCHC RDW Plt Count Lymph % (Auto) Lymph # Seg Neutrophils % Seg Neuts % (Manual) Lymphocytes % (Manual) Nucleated RBC % Lymphocytes # (Manual) POC ABG pH POC ABG pCO2 Sodium 147 H Potassium Chloride 107.2 H Carbon Dioxide 33 H BUN 43 H Creatinine 1.3 H Glucose 119 H POC Glucose 114 H 111 H Calcium 7.2 L Phosphorus Magnesium TIBC Transferrin Ferritin AST ALT Lactate Dehydrogenase Total Creatine Kinase CK-MB (CK-2) Troponin T Total Protein Albumin Vitamin B12 PTH Intact Urine WBC (Auto) Urine Creatinine Urine Total Protein MALU Screen AMLU Titer Double Strand DNA Ab Complement C3 Complement C4 Tot Complement (CH50) Crossmatch 05/14/17 05/15/17 05/15/17 15:52 04:42 04:42 WBC RBC 2.91 L Hgb 8.1 L Hct 25.2 L MCH MCHC RDW 18.6 H Plt Count 69 L Lymph % (Auto) Lymph # Seg Neutrophils % Seg Neuts % (Manual) 78.0 H Lymphocytes % (Manual) 11.0 L Nucleated RBC % 3.0 H Lymphocytes # (Manual) 0.6 L POC ABG pH POC ABG pCO2 Sodium 148 H Potassium Chloride 109.3 H Carbon Dioxide BUN 46 H Creatinine Glucose 133 H POC Glucose 138 H Calcium 7.5 L Phosphorus Magnesium TIBC Transferrin Ferritin AST ALT Lactate Dehydrogenase Total Creatine Kinase CK-MB (CK-2) Troponin T Total Protein Albumin Vitamin B12 PTH Intact Urine WBC (Auto) Urine Creatinine Urine Total Protein MALU Screen MALU Titer Double Strand DNA Ab Complement C3 Complement C4 Tot Complement (CH50) Crossmatch 05/15/17 05/15/17 04:42 05:00 WBC RBC Hgb Hct MCH MCHC RDW Plt Count Lymph % (Auto) Lymph # Seg Neutrophils % Seg Neuts % (Manual) Lymphocytes % (Manual) Nucleated RBC % Lymphocytes # (Manual) POC ABG pH POC ABG pCO2 Sodium Potassium Chloride Carbon Dioxide BUN Creatinine Glucose POC Glucose Calcium Phosphorus Magnesium TIBC Transferrin Ferritin AST ALT Lactate Dehydrogenase 794 H Total Creatine Kinase CK-MB (CK-2) Troponin T Total Protein Albumin Vitamin B12 PTH Intact Urine WBC (Auto) Urine Creatinine 81.9 H Urine Total Protein 191 H MALU Screen MALU Titer Double Strand DNA Ab Complement C3 Complement C4 Tot Complement (CH50) Crossmatch
[2017-05-15] MEDS: KEPPRA 750 MG in NACL 0.9% 100 ML IV SCH (22:35)
[2017-05-16] MEDS: NYSTATIN PO SCH ×4 (00:21→17:27)
[2017-05-16 06:19] LABS: Basophils % (Auto) 0.1 % (0.0-1.8); Hematocrit 27.2 % (30.3-42.9); Hemoglobin 8.7 gm/dl (10.1-14.3); Mean Corpuscular HGB Conc 32 % (30-34); Mean Corpuscular Hemoglobin 28 pg (28-32); Mean Corpuscular Volume 87 fl (79-97); Platelet Count 69 K/mm3 (140-440); Red Blood Count 3.13 M/mm3 (3.65-5.03); Red Cell Distribution Width 18.4 % (13.2-15.2); White Blood Count 8.9 K/mm3 (4.5-11.0)
[2017-05-16 06:40] LABS: Anion Gap 14 mmol/L; BUN/Creatinine Ratio 38; Blood Urea Nitrogen 38 mg/dL (7-17); Calcium 7.9 mg/dL (8.4-10.2); Carbon Dioxide 27 mmol/L (22-30); Chloride 107.2 mmol/L (98-107); Glucose 123 mg/dL (65-100); Sodium 144 mmol/L (137-145)
[2017-05-16] MEDS: D5W 1,000 ML IV SCH (08:40)
[2017-05-16] MEDS: DELTASONE PO SCH (09:43)
[2017-05-16] MEDS: MEGACE PO SCH ×4 (09:44→23:07)
[2017-05-16] MEDS: MAXIPIME/NS 1 GM/100 ML 1 GM/100 ML BAG IV SCH ×2 (09:44→23:07)
[2017-05-16] MEDS: FOLVITE PO SCH (09:44)
[2017-05-16] MEDS: KEPPRA 750 MG in NACL 0.9% 100 ML IV SCH (10:40)
--- NOTE | 2017-05-16 10:48 | Consultation ---
History of Present Illness Consult date: 05/16/17 History of present illness: still susopect lupus cerebritis seizure meds started if mental status does not clear will start antipsychotic steriod treatment is primary therapy plan EEG on wednesday Past History Past Medical History: anemia, other (lupus) Medications and Allergies Allergies Allergy/AdvReac Type Severity Reaction Status Date / Time No Known Allergies Allergy Unverified 08/17/15 16:18 Home Medications Medication Instructions Recorded Confirmed Last Taken Type No Known Home Medications [No 05/10/17 05/10/17 Unknown History Reported Home Medications] Active Meds: Active Medications Acetaminophen (Tylenol) 650 mg PO Q4H PRN PRN Reason: Pain MILD(1-3)/Fever >100.5/OLIVEIRA Last Admin: 05/15/17 15:28 Dose: 650 mg Bisacodyl (Dulcolax) 10 mg [place] QDAY PRN PRN Reason: Constipation unrelieved by MOM Folic Acid (Folvite) 1 mg PO QDAY [facility] Last Admin: 05/16/17 09:44 Dose: 1 mg Cefepime HCl (Maxipime/Ns 1 Gm/100 Ml) 1 gm in 100 mls @ 200 mls/hr IV Q12HR [facility] Last Admin: 05/16/17 09:44 Dose: 200 mls/hr Dextrose (D5w) 1,000 mls @ 75 mls/hr IV DIRECT [facility] Last Admin: 05/16/17 08:40 Dose: 75 mls/hr Levetiracetam 750 mg/ Sodium (Chloride) 107.5 mls @ 430 mls/hr IV Q12HR [facility] Last Admin: 05/16/17 10:40 Dose: 430 mls/hr Lorazepam (Ativan) 2 mg IV Q4H PRN PRN Reason: Seizures Magnesium Hydroxide (Milk Of Magnesia) 30 ml PO Q4H PRN PRN Reason: Constipation Megestrol Acetate (Megace) 40 mg PO QID [facility] Last Admin: 05/16/17 09:44 Dose: 40 mg Nystatin (Nystatin) 500,000 unit PO Q6HR [facility] Last Admin: 05/16/17 06:46 Dose: 500,000 unit Ondansetron HCl (Zofran) 4 mg IV Q4H PRN PRN Reason: N/V unrelieved by Reglan Last Admin: 05/13/17 11:43 Dose: 4 mg Oxycodone/Acetaminophen (Percocet 5/325) 1 tab PO Q6H PRN PRN Reason: Pain, Moderate (4-6) Last Admin: 05/14/17 22:10 Dose: 1 tab Prednisone (Deltasone) 60 mg PO QDAY [facility] Last Admin: 05/16/17 09:43 Dose: 60 mg Physical Examination - Vital Signs Vital Signs: Vital Signs Temp Pulse Resp BP Pulse Ox 98 F 129 H 20 100/70 100 05/08/17 17:19 05/08/17 17:19 05/08/17 17:19 05/08/17 17:19 05/08/17 17:19 Results - Laboratory Findings CBC and BMP: 05/16/17 05:37 05/16/17 05:37 Abnormal Lab Findings: Abnormal Labs 05/08/17 05/08/17 05/08/17 17:41 17:41 Unknown WBC RBC 3.06 L Hgb 8.1 L Hct 25.4 L MCH 26 L MCHC RDW 19.1 H Plt Count 86 L Lymph % (Auto) Lymph # 0.8 L Seg Neutrophils % 77.6 H Seg Neuts % (Manual) Lymphocytes % (Manual) Nucleated RBC % Seg Neutrophils # Lymphocytes # (Manual) POC ABG pH POC ABG pCO2 Sodium Potassium Chloride Carbon Dioxide 17 L BUN 99 H Creatinine 4.0 H Glucose 109 H POC Glucose Calcium 7.3 L Phosphorus Magnesium TIBC Transferrin Ferritin AST 133 H ALT 66 H Lactate Dehydrogenase Total Creatine Kinase CK-MB (CK-2) Troponin T Total Protein 6.1 L Albumin 2.5 L Vitamin B12 PTH Intact Urine WBC (Auto) 22.0 H Urine Creatinine Urine Total Protein MALU Screen MALU Titer Double Strand DNA Ab Complement C3 Complement C4 Tot Complement (CH50) Crossmatch 05/09/17 05/09/17 05/09/17 02:36 09:37 13:19 WBC RBC Hgb Hct MCH MCHC RDW Plt Count Lymph % (Auto) Lymph # Seg Neutrophils % Seg Neuts % (Manual) Lymphocytes % (Manual) Nucleated RBC % Seg Neutrophils # Lymphocytes # (Manual) POC ABG pH POC ABG pCO2 Sodium Potassium Chloride 111.0 H Carbon Dioxide 17 L BUN 89 H Creatinine 3.0 H Glucose 128 H POC Glucose Calcium 6.5 L Phosphorus Magnesium TIBC Transferrin Ferritin AST ALT Lactate Dehydrogenase Total Creatine Kinase CK-MB (CK-2) Troponin T Total Protein Albumin Vitamin B12 PTH Intact Urine WBC (Auto) Urine Creatinine 62.5 H Urine Total Protein MALU Screen Positive H MALU Titer 1:640 H Double Strand DNA Ab Complement C3 Complement C4 Tot Complement (CH50) Crossmatch 05/09/17 05/09/17 05/09/17 13:19 13:19 13:19 WBC RBC Hgb Hct MCH MCHC RDW Plt Count Lymph % (Auto) Lymph # Seg Neutrophils % Seg Neuts % (Manual) Lymphocytes % (Manual) Nucleated RBC % Seg Neutrophils # Lymphocytes # (Manual) POC ABG pH POC ABG pCO2 Sodium Potassium Chloride Carbon Dioxide BUN Creatinine Glucose POC Glucose Calcium Phosphorus Magnesium TIBC Transferrin Ferritin AST ALT Lactate Dehydrogenase Total Creatine Kinase CK-MB (CK-2) Troponin T Total Protein Albumin Vitamin B12 PTH Intact Urine WBC (Auto) Urine Creatinine Urine Total Protein MALU Screen MALU Titer Double Strand DNA Ab Complement C3 20 L Complement C4 6 L Tot Complement (CH50) <10 L Crossmatch 05/09/17 05/09/17 05/09/17 13:19 13:19 13:19 WBC RBC Hgb Hct MCH MCHC RDW Plt Count Lymph % (Auto) Lymph # Seg Neutrophils % Seg Neuts % (Manual) Lymphocytes % (Manual) Nucleated RBC % Seg Neutrophils # Lymphocytes # (Manual) POC ABG pH POC ABG pCO2 Sodium Potassium Chloride Carbon Dioxide BUN Creatinine Glucose POC Glucose Calcium Phosphorus 5.80 H Magnesium 2.40 H TIBC Transferrin Ferritin AST ALT Lactate Dehydrogenase Total Creatine Kinase CK-MB (CK-2) Troponin T Total Protein Albumin Vitamin B12 PTH Intact 117.2 H Urine WBC (Auto) Urine Creatinine Urine Total Protein MALU Screen MALU Titer Double Strand DNA Ab 104 H Complement C3 Complement C4 Tot Complement (CH50) Crossmatch 05/09/17 05/10/17 05/10/17 19:00 04:36 07:20 WBC 2.4 L RBC 2.25 L Hgb 5.9 L* 6.0 L Hct 18.5 L* D 19.3 L* MCH 26 L MCHC RDW 18.6 H Plt Count 57 L Lymph % (Auto) Lymph # 0.3 L Seg Neutrophils % 80.4 H Seg Neuts % (Manual) Lymphocytes % (Manual) Nucleated RBC % Seg Neutrophils # Lymphocytes # (Manual) POC ABG pH 7.313 L POC ABG pCO2 29.3 L Sodium Potassium Chloride Carbon Dioxide BUN Creatinine Glucose POC Glucose Calcium Phosphorus Magnesium TIBC Transferrin Ferritin AST ALT Lactate Dehydrogenase Total Creatine Kinase CK-MB (CK-2) Troponin T Total Protein Albumin Vitamin B12 PTH Intact Urine WBC (Auto) Urine Creatinine Urine Total Protein MALU Screen MALU Titer Double Strand DNA Ab Complement C3 Complement C4 Tot Complement (CH50) Crossmatch 05/10/17 05/10/17 05/10/17 08:12 09:44 09:44 WBC RBC Hgb Hct MCH MCHC RDW Plt Count Lymph % (Auto) Lymph # Seg Neutrophils % Seg Neuts % (Manual) Lymphocytes % (Manual) Nucleated RBC % Seg Neutrophils # Lymphocytes # (Manual) POC ABG pH POC ABG pCO2 Sodium Potassium Chloride 113.9 H Carbon Dioxide 17 L BUN 81 H Creatinine 2.6 H Glucose 129 H POC Glucose Calcium 7.2 L Phosphorus Magnesium TIBC Transferrin Ferritin AST ALT Lactate Dehydrogenase Total Creatine Kinase CK-MB (CK-2) Troponin T 0.091 H Total Protein Albumin Vitamin B12 PTH Intact Urine WBC (Auto) Urine Creatinine Urine Total Protein MALU Screen MALU Titer Double Strand DNA Ab Complement C3 Complement C4 Tot Complement (CH50) Crossmatch See Detail 05/10/17 05/10/17 05/10/17 16:41 19:32 19:32 WBC RBC Hgb 6.1 L Hct 19.1 L* MCH MCHC RDW Plt Count Lymph % (Auto) Lymph # Seg Neutrophils % Seg Neuts % (Manual) Lymphocytes % (Manual) Nucleated RBC % Seg Neutrophils # Lymphocytes # (Manual) POC ABG pH POC ABG pCO2 Sodium Potassium Chloride 112.6 H Carbon Dioxide 15 L BUN 80 H Creatinine 2.4 H Glucose 144 H POC Glucose Calcium 7.0 L Phosphorus Magnesium TIBC Transferrin Ferritin AST ALT Lactate Dehydrogenase Total Creatine Kinase 280 H CK-MB (CK-2) 6.6 H Troponin T Total Protein Albumin Vitamin B12 PTH Intact Urine WBC (Auto) Urine Creatinine Urine Total Protein MALU Screen MALU Titer Double Strand DNA Ab Complement C3 Complement C4 Tot Complement (CH50) Crossmatch 05/11/17 05/11/17 05/11/17 10:43 12:48 23:14 WBC RBC Hgb 7.7 L Hct 22.9 L MCH MCHC RDW Plt Count Lymph % (Auto) Lymph # Seg Neutrophils % Seg Neuts % (Manual) Lymphocytes % (Manual) Nucleated RBC % Seg Neutrophils # Lymphocytes # (Manual) POC ABG pH POC ABG pCO2 Sodium Potassium Chloride Carbon Dioxide BUN Creatinine Glucose POC Glucose Calcium Phosphorus Magnesium TIBC Transferrin Ferritin AST ALT Lactate Dehydrogenase Total Creatine Kinase 212 H CK-MB (CK-2) 6.1 H Troponin T 0.096 H Total Protein Albumin Vitamin B12 PTH Intact Urine WBC (Auto) Urine Creatinine 44.1 H Urine Total Protein 115 H MALU Screen MALU Titer Double Strand DNA Ab Complement C3 Complement C4 Tot Complement (CH50) Crossmatch 05/12/17 05/12/17 05/12/17 04:46 04:46 04:46 WBC RBC 2.70 L Hgb 7.9 L Hct 22.6 L MCH MCHC 35 H RDW 18.0 H Plt Count 56 L Lymph % (Auto) 5.7 L Lymph # 0.3 L Seg Neutrophils % 87.0 H Seg Neuts % (Manual) Lymphocytes % (Manual) Nucleated RBC % Seg Neutrophils # Lymphocytes # (Manual) POC ABG pH POC ABG pCO2 Sodium Potassium Chloride 112.8 H 113.0 H Carbon Dioxide 19 L 20 L BUN 66 H 68 H Creatinine 1.7 H 1.7 H Glucose 167 H 163 H POC Glucose Calcium 7.2 L 7.1 L Phosphorus Magnesium TIBC 170 L Transferrin Ferritin AST ALT Lactate Dehydrogenase 877 H Total Creatine Kinase CK-MB (CK-2) Troponin T Total Protein Albumin Vitamin B12 PTH Intact Urine WBC (Auto) Urine Creatinine Urine Total Protein MALU Screen MALU Titer Double Strand DNA Ab Complement C3 Complement C4 Tot Complement (CH50) Crossmatch 05/12/17 05/12/17 05/12/17 13:05 13:05 13:05 WBC RBC Hgb Hct MCH MCHC RDW Plt Count Lymph % (Auto) Lymph # Seg Neutrophils % Seg Neuts % (Manual) Lymphocytes % (Manual) Nucleated RBC % Seg Neutrophils # Lymphocytes # (Manual) POC ABG pH POC ABG pCO2 Sodium Potassium Chloride Carbon Dioxide BUN Creatinine Glucose POC Glucose Calcium Phosphorus Magnesium TIBC 173 L Transferrin 160 L Ferritin 779.1 H AST ALT Lactate Dehydrogenase Total Creatine Kinase CK-MB (CK-2) Troponin T Total Protein Albumin Vitamin B12 1311 H PTH Intact Urine WBC (Auto) Urine Creatinine Urine Total Protein MALU Screen MALU Titer Double Strand DNA Ab Complement C3 Complement C4 Tot Complement (CH50) Crossmatch 05/12/17 05/12/17 05/13/17 13:05 13:05 05:17 WBC RBC 2.60 L Hgb 7.3 L Hct 21.7 L MCH MCHC RDW 18.5 H Plt Count 45 L Lymph % (Auto) Lymph # Seg Neutrophils % Seg Neuts % (Manual) 87.0 H Lymphocytes % (Manual) 5.0 L Nucleated RBC % Seg Neutrophils # Lymphocytes # (Manual) 0.2 L POC ABG pH POC ABG pCO2 Sodium Potassium Chloride Carbon Dioxide BUN Creatinine Glucose POC Glucose Calcium Phosphorus Magnesium TIBC Transferrin Ferritin AST 49 H ALT Lactate Dehydrogenase 829 H Total Creatine Kinase CK-MB (CK-2) Troponin T Total Protein 4.6 L D Albumin 2.0 L Vitamin B12 PTH Intact Urine WBC (Auto) Urine Creatinine Urine Total Protein MALU Screen MALU Titer Double Strand DNA Ab Complement C3 Complement C4 Tot Complement (CH50) Crossmatch 05/13/17 05/13/17 05/14/17 05:17 10:57 05:06 WBC 4.3 L RBC 3.09 L Hgb 8.4 L Hct 26.1 L MCH 27 L MCHC RDW 18.3 H Plt Count 54 L Lymph % (Auto) Lymph # Seg Neutrophils % Seg Neuts % (Manual) 86.0 H Lymphocytes % (Manual) 6.0 L Nucleated RBC % 2.0 H Seg Neutrophils # Lymphocytes # (Manual) 0.3 L POC ABG pH POC ABG pCO2 Sodium 146 H Potassium 3.5 L Chloride 111.4 H Carbon Dioxide 31 H D BUN 53 H Creatinine 1.4 H Glucose 124 H POC Glucose 131 H Calcium 7.1 L Phosphorus Magnesium TIBC Transferrin Ferritin AST ALT Lactate Dehydrogenase Total Creatine Kinase CK-MB (CK-2) Troponin T Total Protein Albumin Vitamin B12 PTH Intact Urine WBC (Auto) Urine Creatinine Urine Total Protein MALU Screen MALU Titer Double Strand DNA Ab Complement C3 Complement C4 Tot Complement (CH50) Crossmatch 05/14/17 05/14/17 05/14/17 05:06 07:57 11:28 WBC RBC Hgb Hct MCH MCHC RDW Plt Count Lymph % (Auto) Lymph # Seg Neutrophils % Seg Neuts % (Manual) Lymphocytes % (Manual) Nucleated RBC % Seg Neutrophils # Lymphocytes # (Manual) POC ABG pH POC ABG pCO2 Sodium 147 H Potassium Chloride 107.2 H Carbon Dioxide 33 H BUN 43 H Creatinine 1.3 H Glucose 119 H POC Glucose 114 H 111 H Calcium 7.2 L Phosphorus Magnesium TIBC Transferrin Ferritin AST ALT Lactate Dehydrogenase Total Creatine Kinase CK-MB (CK-2) Troponin T Total Protein Albumin Vitamin B12 PTH Intact Urine WBC (Auto) Urine Creatinine Urine Total Protein MALU Screen MALU Titer Double Strand DNA Ab Complement C3 Complement C4 Tot Complement (CH50) Crossmatch 05/14/17 05/15/17 05/15/17 15:52 04:42 04:42 WBC RBC 2.91 L Hgb 8.1 L Hct 25.2 L MCH MCHC RDW 18.6 H Plt Count 69 L Lymph % (Auto) Lymph # Seg Neutrophils % Seg Neuts % (Manual) 78.0 H Lymphocytes % (Manual) 11.0 L Nucleated RBC % 3.0 H Seg Neutrophils # Lymphocytes # (Manual) 0.6 L POC ABG pH POC ABG pCO2 Sodium 148 H Potassium Chloride 109.3 H Carbon Dioxide BUN 46 H Creatinine Glucose 133 H POC Glucose 138 H Calcium 7.5 L Phosphorus Magnesium TIBC Transferrin Ferritin AST ALT Lactate Dehydrogenase Total Creatine Kinase CK-MB (CK-2) Troponin T Total Protein Albumin Vitamin B12 PTH Intact Urine WBC (Auto) Urine Creatinine Urine Total Protein MALU Screen MALU Titer Double Strand DNA Ab Complement C3 Complement C4 Tot Complement (CH50) Crossmatch 05/15/17 05/15/17 05/16/17 04:42 05:00 05:37 WBC RBC 3.13 L Hgb 8.7 L Hct 27.2 L MCH MCHC RDW 18.4 H Plt Count 69 L Lymph % (Auto) 7.3 L Lymph # 0.7 L Seg Neutrophils % 88.6 H Seg Neuts % (Manual) Lymphocytes % (Manual) Nucleated RBC % Seg Neutrophils # 7.9 H Lymphocytes # (Manual) POC ABG pH POC ABG pCO2 Sodium Potassium Chloride Carbon Dioxide BUN Creatinine Glucose POC Glucose Calcium Phosphorus Magnesium TIBC Transferrin Ferritin AST ALT Lactate Dehydrogenase 794 H Total Creatine Kinase CK-MB (CK-2) Troponin T Total Protein Albumin Vitamin B12 PTH Intact Urine WBC (Auto) Urine Creatinine 81.9 H Urine Total Protein 191 H MALU Screen MALU Titer Double Strand DNA Ab Complement C3 Complement C4 Tot Complement (CH50) Crossmatch 05/16/17 05:37 WBC RBC Hgb Hct MCH MCHC RDW Plt Count Lymph % (Auto) Lymph # Seg Neutrophils % Seg Neuts % (Manual) Lymphocytes % (Manual) Nucleated RBC % Seg Neutrophils # Lymphocytes # (Manual) POC ABG pH POC ABG pCO2 Sodium Potassium Chloride 107.2 H Carbon Dioxide BUN 38 H Creatinine Glucose 123 H POC Glucose Calcium 7.9 L Phosphorus Magnesium TIBC Transferrin Ferritin AST ALT Lactate Dehydrogenase Total Creatine Kinase CK-MB (CK-2) Troponin T Total Protein Albumin Vitamin B12 PTH Intact Urine WBC (Auto) Urine Creatinine Urine Total Protein MALU Screen MALU Titer Double Strand DNA Ab Complement C3 Complement C4 Tot Complement (CH50) Crossmatch
--- NOTE | 2017-05-16 13:41 | Progress Note ---
Assessment and Plan Assessment and plan: This is a 26 year old female with PMH of Lupus (diagnosed in 2008) and anemia who presented to [facility] today with complaints of generalized weakness, fatigue, nosebleed (woke up with nosebleed), decreased appetite, and bilateral ear pain with drainage for the past 3-4 days. Patient states she was hospitalized [facility] overnight last week for suspected lupus flare up, prescribed prednisone upon discharge. Patient also states she had an infection (not sure of source) when she was at [place], no antibiotics prescribed. Acute Metabolic Encephalopathy * Possible steroid induced psychosis vs seizure. 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 * CT of the brain was negative MRI spend * Neurology consult Presumed Seizure * Ativan PRN * seizure precautions * Keppra started EEG in a.m. Acute kidney injury -improving down to 1.2 - ATN versus lupus nephritis - Nephrology consulted - Creatinine Resolved - Plan per nephrology for renal biopsy once UTI treated - Patient was given IV fluids and steroids Thrombocytopenia - improving started on Pulse dose steroids. Continue to monitor. - Hematology input noted Severe anemia - Improved with transfusion ordered - Iron def noted also - Patient with multiple antibodies delaying transfusion - ?Autoimmune, - occult blood negative, avoid all antiplatelet medications at this time SLE flareup - Continue steroids Bilateral otitis media - Continue IV antibiotic -Cefriaxone stopped and patient started on cefepime to cover for GPC AND GNB including pseudomonas -ID consult requested and input noted -ENT strongly encouraged out patient, and patient verbalized understanding SIRS secondary to Acute Cystitis-POA - Continue Abx, check urine culture Type 2 [place] secondary to MARITZA - Patient denies any chest pain Decreased appetite - megestrol ordered - Nutrition consult, Check Albumin level DVT prophylaxis - SCDs because of severe anemia Disposition - Continue inpatient care CODE STATUS Full Discussed with patient, nephrology and Hematology Discussed with mother at bedside History Interval history: patient seen and examined in no acute distress. This morning she is more awake she is able to recognize her mother who she did not recognize S today although she still appears withdrawn. She does not recall the events of yesterday. Hospitalist Physical - Physical exam Narrative exam: VITAL SIGNS: Reviewed. GENERAL: The patient appeared well nourished and normally developed. apprehensive Vital signs as documented. HEAD: No signs of head trauma. EYES: Pupils are equal. Extraocular motions intact. EARS: Hearing intact. MOUTH: Oropharynx is normal. NECK: No adenopathy, no JVD. CHEST: Chest with clear breath sounds bilaterally. No wheezes, rales, or rhonchi. CARDIAC: Regular rate and rhythm. S1 and S2, without murmurs, gallops, or rubs. VASCULAR: No Edema. Peripheral pulses normal and equal in all extremities. ABDOMEN: Soft, without detectable tenderness. No sign of distention. No rebound or guarding, and no masses palpated. Bowel Sounds normal. MUSCULOSKELETAL: Good range of motion of all major joints. Extremities without clubbing, cyanosis or edema. NEUROLOGIC EXAM: Alert and oriented x 2. Lethargic. No focal sensory or strength deficits. Speech normal. Follows commands. PSYCHIATRIC: Mood normal. SKIN: No rash or lesions. - Constitutional Vitals: Temp Pulse Resp BP Pulse Ox 98.3 F 51 L 18 134/73 100 05/16/17 11:52 05/16/17 11:52 05/16/17 11:52 05/16/17 11:52 05/16/17 11:52 General appearance: Present: no acute distress Results - Labs CBC & Chem 7: 05/16/17 05:37 05/16/17 05:37 Labs: Laboratory Last Values WBC 8.9 K/mm3 (4.5-11.0) 05/16/17 05:37 RBC 3.13 M/mm3 (3.65-5.03) L 05/16/17 05:37 Hgb 8.7 gm/dl (10.1-14.3) L 05/16/17 05:37 Hct 27.2 % (30.3-42.9) L 05/16/17 05:37 MCV 87 fl (79-97) 05/16/17 05:37 MCH 28 pg (28-32) 05/16/17 05:37 MCHC 32 % (30-34) 05/16/17 05:37 RDW 18.4 % (13.2-15.2) H 05/16/17 05:37 Plt Count 69 K/mm3 (140-440) L 05/16/17 05:37 Lymph % (Auto) 7.3 % (13.4-35.0) L 05/16/17 05:37 [place] % (Auto) 4.0 % (0.0-7.3) 05/16/17 05:37 Eos % (Auto) 0.0 % (0.0-4.3) 05/16/17 05:37 Baso % (Auto) 0.1 % (0.0-1.8) 05/16/17 05:37 Lymph # 0.7 K/mm3 (1.2-5.4) L 05/16/17 05:37 [place] # 0.4 K/mm3 (0.0-0.8) 05/16/17 05:37 Eos # 0.0 K/mm3 (0.0-0.4) 05/16/17 05:37 Baso # 0.0 K/mm3 (0.0-0.1) 05/16/17 05:37 Add Manual Diff Complete 05/15/17 04:42 Total Counted 100 05/15/17 04:42 Seg Neutrophils % 88.6 % (40.0-70.0) H 05/16/17 05:37 Seg Neuts % (Manual) 78.0 % (40.0-70.0) H 05/15/17 04:42 Band Neutrophils % 7.0 % 05/15/17 04:42 Lymphocytes % (Manual) 11.0 % (13.4-35.0) L 05/15/17 04:42 Reactive Lymphs % (Man) 0 % 05/15/17 04:42 Monocytes % (Manual) 1.0 % (0.0-7.3) 05/15/17 04:42 Eosinophils % (Manual) 0 % (0.0-4.3) 05/15/17 04:42 Basophils % (Manual) 0 % (0.0-1.8) 05/15/17 04:42 Metamyelocytes % 3.0 % 05/15/17 04:42 Myelocytes % 0 % 05/15/17 04:42 Promyelocytes % 0 % 05/15/17 04:42 Blast Cells % 0 % 05/15/17 04:42 Nucleated RBC % 3.0 % (0.0-0.9) H 05/15/17 04:42 Seg Neutrophils # 7.9 K/mm3 (1.8-7.7) H 05/16/17 05:37 Seg Neutrophils # Man 4.4 K/mm3 (1.8-7.7) 05/15/17 04:42 Band Neutrophils # 0.4 K/mm3 05/15/17 04:42 Lymphocytes # (Manual) 0.6 K/mm3 (1.2-5.4) L 05/15/17 04:42 Abs React Lymphs (Man) 0.0 K/mm3 05/15/17 04:42 Monocytes # (Manual) 0.1 K/mm3 (0.0-0.8) 05/15/17 04:42 Eosinophils # (Manual) 0.0 K/mm3 (0.0-0.4) 05/15/17 04:42 Basophils # (Manual) 0.0 K/mm3 (0.0-0.1) 05/15/17 04:42 Metamyelocytes # 0.2 K/mm3 05/15/17 04:42 Myelocytes # 0.0 K/mm3 05/15/17 04:42 Promyelocytes # 0.0 K/mm3 05/15/17 04:42 Blast Cells # 0.0 K/mm3 05/15/17 04:42 WBC Morphology Not Reportable 05/15/17 04:42 Hypersegmented Neuts Not Reportable 05/15/17 04:42 Hyposegmented Neuts Not Reportable 05/15/17 04:42 Hypogranular Neuts Not Reportable 05/15/17 04:42 Smudge Cells Few 05/15/17 04:42 Toxic Granulation Not Reportable 05/15/17 04:42 Toxic Vacuolation Not Reportable 05/15/17 04:42 Dohle Bodies Not Reportable 05/15/17 04:42 Pelger-Huet Anomaly Not Reportable 05/15/17 04:42 Chevy Rods Not Reportable 05/15/17 04:42 Platelet Estimate Consistent w auto 05/15/17 04:42 Clumped Platelets Not Reportable 05/15/17 04:42 Plt Clumps, EDTA Not Reportable 05/15/17 04:42 Large Platelets Not Reportable 05/15/17 04:42 Giant Platelets Not Reportable 05/15/17 04:42 Platelet Satelliting Not Reportable 05/15/17 04:42 Plt Morphology Comment Not Reportable 05/15/17 04:42 RBC Morphology Not Reportable 05/15/17 04:42 Dimorphic RBCs Not Reportable 05/15/17 04:42 Polychromasia 1+ 05/15/17 04:42 Hypochromasia Not Reportable 05/15/17 04:42 Poikilocytosis Not Reportable 05/15/17 04:42 Basophilic Stippling Rare 05/13/17 05:17 Anisocytosis 1+ 05/15/17 04:42 Microcytosis Not Reportable 05/15/17 04:42 Macrocytosis Not Reportable 05/15/17 04:42 Spherocytes Not Reportable 05/15/17 04:42 Pappenheimer Bodies Not Reportable 05/15/17 04:42 Sickle Cells Not Reportable 05/15/17 04:42 Target Cells Not Reportable 05/15/17 04:42 Tear Drop Cells Few 05/15/17 04:42 Ovalocytes 1+ 05/15/17 04:42 Helmet Cells Not Reportable 05/15/17 04:42 [place] Bodies Not Reportable 05/15/17 04:42 [place] Rings Not Reportable 05/15/17 04:42 Angeli Cells Not Reportable 05/15/17 04:42 Bite Cells Not Reportable 05/15/17 04:42 Crenated Cell Not Reportable 05/15/17 04:42 Elliptocytes Not Reportable 05/15/17 04:42 Acanthocytes (Spur) Not Reportable 05/15/17 04:42 Rouleaux Not Reportable 05/15/17 04:42 Hemoglobin C Crystals Not Reportable 05/15/17 04:42 Schistocytes Not Reportable 05/15/17 04:42 Malaria parasites Not Reportable 05/15/17 04:42 ESR 84 mm/Hr (0-20) 05/12/17 13:05 Percent Retic 2.14 % (0.78-2.58) 05/12/17 13:05 Driss Bodies Not Reportable 05/15/17 04:42 Hem Pathologist Commnt No 05/15/17 04:42 POC ABG pH 7.313 (7.35-7.45) L 05/09/17 19:00 POC ABG pCO2 29.3 (35-45) L 05/09/17 19:00 POC ABG pO2 103 (80-105) 05/09/17 19:00 POC ABG HCO3 14.9 05/09/17 19:00 POC ABG Total CO2 16 05/09/17 19:00 POC ABG O2 Sat 97 05/09/17 19:00 POC ABG Base Excess -11 05/09/17 19:00 FiO2 21 % 05/09/17 19:00 Sodium 144 mmol/L (137-145) 05/16/17 05:37 Potassium 4.0 mmol/L (3.6-5.0) 05/16/17 05:37 Chloride 107.2 mmol/L (98-107) H 05/16/17 05:37 Carbon Dioxide 27 mmol/L (22-30) 05/16/17 05:37 Anion Gap 14 mmol/L 05/16/17 05:37 BUN 38 mg/dL (7-17) H 05/16/17 05:37 Creatinine 1.0 mg/dL (0.7-1.2) 05/16/17 05:37 Estimated GFR > 60 ml/min 05/16/17 05:37 BUN/Creatinine Ratio 38 % 05/16/17 05:37 Glucose 123 mg/dL (65-100) H 05/16/17 05:37 POC Glucose 138 (70-105) H 05/14/17 15:52 Calcium 7.9 mg/dL (8.4-10.2) L 05/16/17 05:37 Phosphorus 3.20 mg/dL (2.5-4.5) 05/16/17 05:37 Magnesium 1.80 mg/dL (1.7-2.3) 05/15/17 05:00 Iron 76 ug/dL (37-170) 05/12/17 13:05 TIBC 173 mcg/dL (250-450) L 05/12/17 13:05 % Saturation 43.93 % 05/12/17 13:05 Transferrin 160 mg/dl (192-382) L 05/12/17 13:05 Ferritin 779.1 ng/mL (13.0-400.0) H 05/12/17 13:05 Total Bilirubin < 0.20 mg/dL (0.1-1.2) 05/12/17 13:05 Direct Bilirubin < 0.2 mg/dL (0-0.2) 05/12/17 13:05 Indirect Bilirubin 0.0 mg/dL 05/12/17 13:05 AST 49 units/L (5-40) H 05/12/17 13:05 ALT 38 units/L (7-56) 05/12/17 13:05 Alkaline Phosphatase 37 units/L (35-129) 05/12/17 13:05 Lactate Dehydrogenase 794 units/L (91-180) H 05/15/17 04:42 Total Creatine Kinase 212 units/L (30-135) H 05/11/17 12:48 CK-MB (CK-2) 6.1 ng/mL (0.0-4.0) H 05/11/17 12:48 CK-MB (CK-2) Rel Index 2.8 (0-4) 05/11/17 12:48 Troponin T 0.096 ng/mL (0.00-0.029) H 05/11/17 12:48 C-Reactive Protein 0.10 mg/dL (0.00-1.30) 05/11/17 16:07 Total Protein 4.6 g/dL (6.3-8.2) L D 05/12/17 13:05 Albumin 2.0 g/dL (3.9-5) L 05/12/17 13:05 Albumin/Globulin Ratio 0.8 % 05/12/17 13:05 Vitamin B12 1311 pg/mL (211-911) H 05/12/17 13:05 Folate > 20 ng/mL (7.3-26.0) 05/12/17 13:05 PTH Intact 117.2 pg/mL (15-65) H 05/09/17 13:19 Urine Color Yellow (Yellow) 05/11/17 10:43 Urine Turbidity Clear (Clear) 05/11/17 10:43 Urine pH 6.0 (5.0-7.0) 05/11/17 10:43 Ur Specific [place] 1.010 (1.003-1.030) 05/11/17 10:43 Urine Protein 100 mg/dl mg/dL (Negative) 05/11/17 10:43 Urine Glucose (UA) Neg mg/dL (Negative) 05/11/17 10:43 Urine Ketones Neg mg/dL (Negative) 05/11/17 10:43 Urine Blood Mod (Negative) 05/11/17 10:43 Urine Nitrite Neg (Negative) 05/11/17 10:43 Ur Reducing Substances Not Reportable 05/08/17 Unknown Urine Bilirubin Neg (Negative) 05/11/17 10:43 Urine Ictotest Not Reportable 05/08/17 Unknown Urine Urobilinogen < 2.0 mg/dL (<2.0) 05/11/17 10:43 Ur Leukocyte Esterase Neg (Negative) 05/11/17 10:43 Urine WBC (Auto) 5.0 /HPF (0.0-6.0) 05/11/17 10:43 Urine RBC (Auto) 10.0 /HPF (0.0-6.0) 05/11/17 10:43 U Epithel Cells (Auto) 5.0 /HPF (0-13.0) 05/11/17 10:43 Urine Bacteria (Auto) 2+ /HPF (Negative) 05/08/17 Unknown Urine Mucus Few /HPF 05/08/17 Unknown Urine Eosinophils None seen (None Seen) 05/11/17 Unknown Urine Osmolality 344 Mosm/kg 05/09/17 02:36 Urine Creatinine 81.9 mg/dL (0.1-20.0) H 05/15/17 05:00 Protein/Creatinin Ratio 2.33 05/15/17 05:00 Urine Sodium 30 mmol/L 05/09/17 02:36 Urine Total Protein 191 mg/dL (5-11.8) H 05/15/17 05:00 Urine HCG, Qual Negative (Negative) 05/08/17 Unknown MALU Screen Positive (Negative) H 05/09/17 13:19 MALU Titer 1:640 (Negative) H 05/09/17 13:19 MALU Pattern Homogeneous 05/09/17 13:19 Proteinase 3 (PR3) Ab <1.0 AI (<1.0) 05/11/17 12:48 Myeloperoxidase Ab <1.0 AI (<1.0) 05/11/17 12:48 Double Strand DNA Ab 104 IU/mL (<=4) H 05/09/17 13:19 Glomerular Base Mem IgG <1.0 AI (<1.0) 05/11/17 12:48 Complement C3 20 mg/dL (90-180) L 05/09/17 13:19 Complement C4 6 mg/dL (16-47) L 05/09/17 13:19 Tot Complement (CH50) <10 U/mL (31-60) L 05/09/17 13:19 Hep Bs Antigen Non-reactive (Negative) 05/11/17 12:48 Hepatitis C Antibody Non-reactive (NonReactive) 05/11/17 12:48 HIV 1&2 Antibody Rapid Non react (Non React) 05/11/17 12:48 HIV P24 Antigen Non react (Non React) 05/11/17 12:48 Schistocytes Smear Rare 05/11/17 12:48 Blood Type AB POSITIVE 05/10/17 08:12 Antibody Screen Positive 05/10/17 08:12 FRANDY Antibody Screen Positive 05/10/17 08:12 Antibody Identification Anti-IH Warm Auto Antibody 05/10/17 08:12 Antibody Identification Anti-IH Warm Auto Antibody 05/10/17 08:12 Direct Antiglob Test Positive 05/10/17 08:12 ABDIRAHMAN (IgG-AHG) Positive 05/10/17 08:12 ABDIRAHMAN, Poly Interpret Positive 05/10/17 08:12 ABDIRAHMAN, Anti-C3 Negative 05/10/17 08:12 Crossmatch See Detail 05/10/17 08:12
[2017-05-16] MEDS: ATIVAN IV PRN (14:10)
--- NOTE | 2017-05-16 14:25 | Hem/Onc Progress Note ---
Assessment and Plan Lupus flare up with pancytopenia. the blood counts are showing some improvement on steroids. ? lupus cerebritis- CT scan negative. Neurology on the case. Subjective Date of service: 05/16/17 Interval history: pt off the floor Objective - Constitutional Vitals: Last Vital Signs Temp 98.3 F 05/16/17 11:52 Pulse 51 L 05/16/17 11:52 Resp 18 05/16/17 11:52 BP 134/73 05/16/17 11:52 Pulse Ox 100 05/16/17 11:52 - Labs Lab Results: Laboratory Results - last 24 hr 05/16/17 05/16/17 05:37 05:37 WBC 8.9 RBC 3.13 L Hgb 8.7 L Hct 27.2 L MCV 87 MCH 28 MCHC 32 RDW 18.4 H Plt Count 69 L Lymph % (Auto) 7.3 L [place] % (Auto) 4.0 Eos % (Auto) 0.0 Baso % (Auto) 0.1 Lymph # 0.7 L [place] # 0.4 Eos # 0.0 Baso # 0.0 Seg Neutrophils % 88.6 H Seg Neutrophils # 7.9 H Sodium 144 Potassium 4.0 Chloride 107.2 H Carbon Dioxide 27 Anion Gap 14 BUN 38 H Creatinine 1.0 Estimated GFR > 60 BUN/Creatinine Ratio 38 Glucose 123 H Calcium 7.9 L Phosphorus 3.20
--- NOTE | 2017-05-16 15:12 | Progress Note ---
Assessment and Plan Acute Renal failure possible pre renal/ATN vs Lupus nephritis: Unknown CKD: -Cr in 2016 was 0.6 but no recent baseline available so unknown if has CKD or not. Came in on 05/08 with Cr of 4. -Cr trending down. -Finishing Solumedrol pulse today. Prednisone 60 mg daily from tomorrow. -Will need Renal biopsy once Hg stable. -Renally dose all meds and avoid nephrotoxic meds Hypernatremia, Hypertonic: -Continue D5W at 75 cc/hr. Na trending down. -Encourage PO water intake. Lupus: -On steroids -Recommend Rheum consult -Per primary Acute otitis media: -On Abx Anemia of chronic disease possible due to lupus: Leukopenia: Thrombocytopenia: -Pancytopenia likely from Lupus -Transfuse PRN per primary -Hemonc on board. Jimmy Balderrama MD Nephrology, Hypertension, Dialysis, Transplantation Phone no: [phone] Subjective Date of service: 05/16/17 Principal diagnosis: renal failure Interval history: Denies CP/SHOB. Objective - Exam Narrative Exam: GE: AAOX3, HEENT: PERRLA Neck: No JVD Chest: CTAB CVS: RRR Abd: BS+, soft, NT Ext: No BLE edema Neuro: AAOX3 - Vital Signs Vital signs: Vital Signs - 12hr 05/16/17 05/16/17 05/16/17 04:42 07:46 10:00 Temperature 97.9 F 98.3 F Pulse Rate 46 L 50 L Pulse Rate [ 59 L From Monitor] Respiratory 18 18 16 Rate Blood Pressure 164/99 149/85 O2 Sat by Pulse 99 100 Oximetry 05/16/17 05/16/17 11:00 11:52 Temperature 98.3 F Pulse Rate 46 L 51 L Pulse Rate [ From Monitor] Respiratory 18 Rate Blood Pressure 134/73 O2 Sat by Pulse 100 Oximetry - Lab 05/16/17 05:37 05/16/17 05:37 Most recent lab results Calcium 7.9 mg/dL (8.4-10.2) L 05/16/17 05:37 Phosphorus 3.20 mg/dL (2.5-4.5) 05/16/17 05:37 Magnesium 1.80 mg/dL (1.7-2.3) 05/15/17 05:00 Urine Creatinine 81.9 mg/dL (0.1-20.0) H 05/15/17 05:00 Urine Sodium 30 mmol/L 05/09/17 02:36 Urine Total Protein 191 mg/dL (5-11.8) H 05/15/17 05:00
[2017-05-17] MEDS: KEPPRA 750 MG in NACL 0.9% 100 ML IV SCH (00:16)
[2017-05-17] MEDS: NYSTATIN PO SCH ×4 (00:23→17:38)
[2017-05-17 06:18] LABS: Basophils % (Auto) 0.2 % (0.0-1.8); Hemoglobin 8.6 gm/dl (10.1-14.3); Mean Corpuscular HGB Conc 33 % (30-34); Mean Corpuscular Hemoglobin 29 pg (28-32); Mean Corpuscular Volume 87 fl (79-97); Red Blood Count 2.97 M/mm3 (3.65-5.03); Red Cell Distribution Width 18.6 % (13.2-15.2); White Blood Count 7.6 K/mm3 (4.5-11.0)
[2017-05-17 06:19] LABS: Platelet Count 71 K/mm3 (140-440)
[2017-05-17 06:35] LABS: Anion Gap 13 mmol/L; BUN/Creatinine Ratio 40; Blood Urea Nitrogen 36 mg/dL (7-17); Calcium 7.6 mg/dL (8.4-10.2); Carbon Dioxide 26 mmol/L (22-30); Chloride 108.2 mmol/L (98-107); Glucose 109 mg/dL (65-100); Potassium 3.6 mmol/L (3.6-5.0); Sodium 144 mmol/L (137-145)
--- NOTE | 2017-05-17 07:32 | Consultation ---
HISTORY OF PRESENT ILLNESS: This is a 26-year-old black female. This is a patient admitted to [facility] initially on 05/08/2017. By history, she presented to the hospital with complaints of nose bleeding. Speaking with mother, she was complaining of weakness, ear pain, vomiting, nausea and presented. She had been taking prednisone therapy 10 mg b.i.d., [place] and on admission also had a history of previously taking meclizine and Levaquin therapy 500 mg, although it appeared that this was not clear to the mother. When she presented to the hospital, she was tachycardic and afebrile. Her hematocrit was 25.4. Her electrolytes were essentially unremarkable. She was thought to have acute renal failure, severe dehydration with a creatinine of 4.0. She was subsequently hydrated. PAST MEDICAL HISTORY: Somewhat complicated because she for a period of time lived with a sister in [facility], but the sister . The patient became ill during that period but the mother's sister was admitted to 3 to 4 different hospitals, eventually was diagnosed as having lupus, on the basis of a bone marrow biopsy, although these records are not currently available. She was not under active medical care here in the [place] area as far as any immunosuppressives of steroid therapy, although it is noted that when she presented to the hospital, she had been taking steroids. Other than that, the patient's history is not obtainable from the patient, but purely from the mother. Initially after she was admitted for several days, she did well but for the past 24 hours has been less responsive and she apparently had a seizure earlier today and had a CT scan of the head, which is unremarkable. I am seeing her now, she is afebrile. Pulse rate is 80, respirations are 18. She seems slightly sleepy. She is not at all agitated and not hallucinating, not confused. She is not having any aggressive behavior or appears to be noncooperative. She has symmetrical licensing specialist. Motor tone is normal. She does not recognize her mother, but will speak. She cannot follow up anything more than simple commands such as open your eyes, stick your tongue out and that she probably tries to get back to sleep, which my impression is simply postictal. She does not have any neck rigidity. I do not find evidence of meningismus. IMPRESSION: From the appearance of things, it appears that she has all the features of lupus, certainly high dose steroid therapy that Dr. Kilgore has started would be an appropriate treatment. I will recommend anticonvulsant therapy for her. I have gone over her CT scan of the head. It does not reveal anything of significance such as stroke or evidence of infection. Obviously getting an MRI scan at some point would be useful to look for more subtle changes of vasculitis, cerebritis, white or castellanos matter changes. Other possibilities might and should be considered since she is immunocompromised to some form of viral encephalitis, HPV infections, PMV infections also should be considered. JOB# [id number] STACY/INOCENCIO
[2017-05-17] MEDS: D5W 1,000 ML IV SCH (08:51)
[2017-05-17] MEDS: DELTASONE PO SCH (09:03)
[2017-05-17] MEDS: MEGACE PO SCH ×4 (09:03→22:28)
[2017-05-17] MEDS: MAXIPIME/NS 1 GM/100 ML 1 GM/100 ML BAG IV SCH (09:03)
[2017-05-17] MEDS: FOLVITE PO SCH (09:03)
--- NOTE | 2017-05-17 09:18 | Hem/Onc Progress Note ---
Assessment and Plan Continue to monitor. CBC stable. Subjective Date of service: 05/17/17 Interval history: Patient seems better. eating. Trying to feed herself. Denies any significant pain Objective - Constitutional Vitals: Last Vital Signs Temp 98.4 F 05/17/17 07:38 Pulse 52 L 05/17/17 08:15 Resp 16 05/17/17 08:15 BP 142/72 05/17/17 07:38 Pulse Ox 100 05/17/17 07:38 Pain Intensity (0-10): denies any pain General appearance: other (looks a bit paranoid) - Neck Neck: supple - Respiratory Respiratory effort: Positive: normal Respiratory: bilateral: CTA - Cardiovascular Rhythm: regular Extremities: No edema - Labs Lab Results: Laboratory Results - last 24 hr 05/16/17 05/17/17 05/17/17 06:00 05:37 05:37 WBC 7.6 RBC 2.97 L Hgb 8.6 L Hct 26.0 L MCV 87 MCH 29 MCHC 33 RDW 18.6 H Plt Count 71 L Lymph % (Auto) 9.3 L [place] % (Auto) 4.6 Eos % (Auto) 0.0 Baso % (Auto) 0.2 Lymph # 0.7 L [place] # 0.3 Eos # 0.0 Baso # 0.0 Seg Neutrophils % 85.9 H Seg Neutrophils # 6.6 Sodium 144 Potassium 3.6 Chloride 108.2 H Carbon Dioxide 26 Anion Gap 13 BUN 36 H Creatinine 0.9 Estimated GFR > 60 BUN/Creatinine Ratio 40 Glucose 109 H Calcium 7.6 L Phosphorus 2.60 Magnesium 1.70
[2017-05-17] MEDS: KEPPRA PO SCH ×2 (10:31→22:27)
[2017-05-17] MEDS: ATIVAN IV PRN (11:04)
--- NOTE | 2017-05-17 11:36 | Progress Note ---
Assessment and Plan Acute Renal failure possible pre renal/ATN vs Lupus nephritis: Unknown CKD: -Cr in 2016 was 0.6 but no recent baseline available so unknown if has CKD or not. Came in on 05/08 with Cr of 4. -Cr trending down. -s/p Solumedrol pulse. Currently on prednisone 60 mg daily, continue. -Will need Renal biopsy once Hg and Plt count stable. -Renally dose all meds and avoid nephrotoxic meds Hypernatremia, Hypertonic: -Continue D5W at 75 cc/hr. Na trending down. -Encourage PO water intake. Lupus: -On steroids -Recommend Rheum consult -Per primary Acute otitis media: -On Abx Anemia of chronic disease possible due to lupus: Leukopenia: Thrombocytopenia: -Pancytopenia likely from Lupus -Transfuse PRN per primary -Hemonc on board. Jimmy Balderrama MD Nephrology, Hypertension, Dialysis, Transplantation Phone no: [phone] Subjective Date of service: 05/17/17 Principal diagnosis: renal failure Interval history: Denies CP/SHOB. Eating food. Objective - Exam Narrative Exam: GE: AAOX3, HEENT: PERRLA Neck: No JVD Chest: CTAB CVS: RRR Abd: BS+, soft, NT Ext: No BLE edema Neuro: AAOX3 - Vital Signs Vital signs: Vital Signs - 12hr 05/17/17 05/17/17 05/17/17 00:04 00:05 04:05 Temperature 98.7 F 98.5 F Pulse Rate 50 L 48 L Pulse Rate [ From Monitor] Respiratory 18 Rate Blood Pressure 154/97 152/87 O2 Sat by Pulse 100 98 Oximetry 05/17/17 05/17/17 07:38 08:15 Temperature 98.4 F Pulse Rate 50 L Pulse Rate [ 52 L From Monitor] Respiratory 17 16 Rate Blood Pressure 142/72 O2 Sat by Pulse 100 Oximetry - Lab 05/17/17 05:37 05/17/17 05:37 Most recent lab results Calcium 7.6 mg/dL (8.4-10.2) L 05/17/17 05:37 Phosphorus 2.60 mg/dL (2.5-4.5) 05/17/17 05:37 Magnesium 1.70 mg/dL (1.7-2.3) 05/16/17 06:00 Urine Creatinine 81.9 mg/dL (0.1-20.0) H 05/15/17 05:00 Urine Sodium 30 mmol/L 05/09/17 02:36 Urine Total Protein 191 mg/dL (5-11.8) H 05/15/17 05:00
--- NOTE | 2017-05-17 11:50 | Progress Note ---
Assessment and Plan Assessment: 1) SIRS: better. Etiology most likely bilateral otitis media +/- lupus flare. CRP=0.1. HIV neg. 2) Bilateral otitis media - better 3) MARITZA - > lupus nephritis - better 4) Anemia / thrombocytopenia from lupus 5) Lupus with very low C3/C4 ? lupus flare - better 6) Oral candidiasis - better Plan: -stop cefepime s/p 7 days -start levaquin PO for 3 days -continue nystatin swish and swallow for 14 days I am signing off Thank you Dr Estrella for your consultation, will follow up with you. Mary Earl MD Infectious Diseases Specialist [facility] ([facility]) M [phone] O [phone] Subjective Date of service: 05/17/17 Principal diagnosis: renal failure Interval history: Feels better, no fever, no ear pain or drainage Current Antimicrobials: cefepime 05/11 Previous Antimicrobials: Ceftriaxone 05/09 Microbiology: Blood cultures: 05/10 ngtd Urine cultures: Objective - Exam Narrative Exam: General appearance: Alert in NAD, conversant Eyes: anicteric sclerae, moist conjunctivae; no lid-lag; PERRLA HENT: Atraumatic; oropharynx +thrush. +wellington erythematous TM with fluid Neck: Trachea midline; supple, no thyromegaly or lymphadenopathy Lungs: CTA, with normal respiratory effort and no intercostal retractions CV: RRR, +murmurs Abdomen: Soft, non-tender; no masses or hepatosplenomegaly Extremities: No peripheral edema or extremity lymphadenopathy Skin: Normal temperature, turgor and texture; no rash, ulcers or subcutaneous nodules Psych: Appropriate affect, alert and oriented to person, place and time. Neuro: alert and oriented x 3. Moving all extermities Lines: No CVL / PICC - Constitutional Vitals: Vital Signs Temp Pulse Resp BP Pulse Ox 98.4 F 52 L 16 142/72 100 05/17/17 07:38 05/17/17 08:15 05/17/17 08:15 05/17/17 07:38 05/17/17 07:38 Temperature -Last 24 Hours Temperature 98.4 F Temperature 98.5 F Temperature 98.7 F Temperature 98.8 F Temperature 98.8 F Temperature 98.6 F Temperature 98.3 F - Labs CBC & Chem 7: 05/17/17 05:37 05/17/17 05:37 Labs: Abnormal lab results 05/17/17 05/17/17 Range/Units 05:37 05:37 RBC 2.97 L (3.65-5.03) M/mm3 Hgb 8.6 L (10.1-14.3) gm/dl Hct 26.0 L (30.3-42.9) % RDW 18.6 H (13.2-15.2) % Plt Count 71 L (140-440) K/mm3 Lymph % (Auto) 9.3 L (13.4-35.0) % Lymph # 0.7 L (1.2-5.4) K/mm3 Seg Neutrophils % 85.9 H (40.0-70.0) % Chloride 108.2 H (98-107) mmol/L BUN 36 H (7-17) mg/dL Glucose 109 H (65-100) mg/dL Calcium 7.6 L (8.4-10.2) mg/dL
[2017-05-17] MEDS ORDERED: PNEUMOVAX 23 IM ONE (12:00)
[2017-05-17] MEDS ORDERED: Fluarix Quad 2017-2018(36 MOS+ IM ONE (12:00)
--- NOTE | 2017-05-17 15:23 | Magnetic Resonance Report ---
MR BRAIN WITH AND WITHOUT CONTRAST History: Seizure, altered mental status Technique: Multisequence, multiplanar MRI without contrast. Findings: Correlation is made with the CT brain dated 05/15/17 and MRI brain dated 09/05/12. Some of the sequences are limited by motion artifact, particularly the postcontrast images. Abnormal MR signal has developed in the cortex and subcortical white matter of the posterior temporal lobes, parietal lobes, and occipital lobes. There is increased signal on the T2-weighted images and decreased signal on the T1-weighted images. There is subtle increased diffusion signal in these areas with questionable small areas of ischemia. Most, if not all, of the diffusion signal appears to represent T2 shine through artifact. There is mild diffuse volume loss throughout the supratentorial compartment. The remaining brain parenchyma demonstrates normal signal. Ventricular size is normal. The basal cisterns are clear. No evidence for hemorrhage, mass or extra-axial fluid collection. The posterior fossa and contents are within normal limits. The visualized paranasal sinuses and mastoid air cells are well-aerated. No abnormal enhancement is demonstrated following IV gadolinium. Impression: Abnormal T2 signal in the subcortical white matter and cortex of the bilateral parietal, occipital and posterior temporal lobes. 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 Is this an eclamptic or hypertensive patient? Please correlate with the patient's clinical presentation.
--- NOTE | 2017-05-17 16:11 | Progress Note ---
Assessment and Plan Assessment and plan: Patient is a 26 yo woman with PMH of Lupus (diagnosed in 2008) and anemia who presented to [facility] today with complaints of generalized weakness, fatigue, nosebleed (woke up with nosebleed), decreased appetite, and bilateral ear pain with drainage for the past 3-4 days. Patient states she was hospitalized [facility] overnight last week for suspected lupus flare up, prescribed prednisone upon discharge. Patient also states she had an infection (not sure of source) when she was at [place], no antibiotics prescribed. Acute Metabolic Encephalopathy, resolved Possible steroid induced psychosis vs seizure. 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 CT of the brain was negative MRI spend Neurology consulted Intractable seizure Ativan PRN seizure precautions Keppra started Acute kidney injury, multifactorial and vasomotor nephropathy,poa -improving down to 1.2 - ATN versus lupus nephritis - Nephrology consulted - Creatinine Resolved - Plan per nephrology for renal biopsy once UTI treated - Patient was given IV fluids and steroids Thrombocytopenia - improving started on Pulse dose steroids. Continue to monitor. - Hematology input noted Severe anemia, FOBT negative - Improved with transfusion ordered - Iron def noted also - Patient with multiple antibodies delaying transfusion - ?Autoimmune, - occult blood negative, avoid all antiplatelet medications at this time SLE flareup - Continue steroids Bilateral otitis media with Sepsis, not SIRS poa, urine ctx contaminated - Continue IV antibiotic -Cefriaxone stopped and patient started on cefepime to cover for GPC AND GNB including pseudomonas -ID following -ENT strongly encouraged out patient, and patient verbalized understanding No AMI Decreased appetite - megestrol ordered - Nutrition consult, Check Albumin level DVT prophylaxis - SCDs because of severe anemia Disposition - Continue inpatient care CODE STATUS Full Brain MRI without contrast read as "abnormal T2 signal in the subcortical white matter and cortex of the bilateral parieto-occipital and posterior temporal lobes. 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 Is this an eclamptic or hypertensive patient? Please correlate with the patient clinical presentation." Keppra started History Interval history: Patient was seen and examined. Follow-up on current diagnosis/seizure which she had overnight. Patient denies any chest pain, shortness breath, nausea/ vomiting or severe headaches. Imaging, nursing note, chart, labs and old chart reviewed. Discussed with patient. Hospitalist Physical - Physical exam Narrative exam: GEN: Thin woman, NAD, AWAKE, ALERT, ORIENTATED 3 HEENT: NCAT, EOMI, PERRL, OP Clear NECK: supple, no adenopathy, no thyromegaly, no JVD CVS/HEART: RRR, NORMAL S1S2, NO JVD, pulses present bilaterally CHEST/LUNGS: CTA B, Symmetrical chest expansion, good air entry bilaterally GI/Abdomen: soft, NTND, good bowel sounds, no guarding or rebound /Bladder: no suprapubic tenderness, no CVA or paraspinal tenderness EXT/Skin: no c/c/e, no obvious rash MSK: FROM x 4 Neuro: CN 2-12 grossly intact, no new focal deficits Psych: calm - Constitutional Vitals: Temp Pulse Resp BP Pulse Ox 98.4 F 48 L 16 142/72 100 05/17/17 07:38 05/17/17 11:00 05/17/17 08:15 05/17/17 07:38 05/17/17 07:38 General appearance: Present: no acute distress Results - Labs CBC & Chem 7: 05/17/17 05:37 05/17/17 05:37 Labs: Laboratory Last Values WBC 7.6 K/mm3 (4.5-11.0) 05/17/17 05:37 RBC 2.97 M/mm3 (3.65-5.03) L 05/17/17 05:37 Hgb 8.6 gm/dl (10.1-14.3) L 05/17/17 05:37 Hct 26.0 % (30.3-42.9) L 05/17/17 05:37 MCV 87 fl (79-97) 05/17/17 05:37 MCH 29 pg (28-32) 05/17/17 05:37 MCHC 33 % (30-34) 05/17/17 05:37 RDW 18.6 % (13.2-15.2) H 05/17/17 05:37 Plt Count 71 K/mm3 (140-440) L 05/17/17 05:37 Lymph % (Auto) 9.3 % (13.4-35.0) L 05/17/17 05:37 Glynn % (Auto) 4.6 % (0.0-7.3) 05/17/17 05:37 Eos % (Auto) 0.0 % (0.0-4.3) 05/17/17 05:37 Baso % (Auto) 0.2 % (0.0-1.8) 05/17/17 05:37 Lymph # 0.7 K/mm3 (1.2-5.4) L 05/17/17 05:37 Glynn # 0.3 K/mm3 (0.0-0.8) 05/17/17 05:37 Eos # 0.0 K/mm3 (0.0-0.4) 05/17/17 05:37 Baso # 0.0 K/mm3 (0.0-0.1) 05/17/17 05:37 Add Manual Diff Complete 05/15/17 04:42 Total Counted 100 05/15/17 04:42 Seg Neutrophils % 85.9 % (40.0-70.0) H 05/17/17 05:37 Seg Neuts % (Manual) 78.0 % (40.0-70.0) H 05/15/17 04:42 Band Neutrophils % 7.0 % 05/15/17 04:42 Lymphocytes % (Manual) 11.0 % (13.4-35.0) L 05/15/17 04:42 Reactive Lymphs % (Man) 0 % 05/15/17 04:42 Monocytes % (Manual) 1.0 % (0.0-7.3) 05/15/17 04:42 Eosinophils % (Manual) 0 % (0.0-4.3) 05/15/17 04:42 Basophils % (Manual) 0 % (0.0-1.8) 05/15/17 04:42 Metamyelocytes % 3.0 % 05/15/17 04:42 Myelocytes % 0 % 05/15/17 04:42 Promyelocytes % 0 % 05/15/17 04:42 Blast Cells % 0 % 05/15/17 04:42 Nucleated RBC % 3.0 % (0.0-0.9) H 05/15/17 04:42 Seg Neutrophils # 6.6 K/mm3 (1.8-7.7) 05/17/17 05:37 Seg Neutrophils # Man 4.4 K/mm3 (1.8-7.7) 05/15/17 04:42 Band Neutrophils # 0.4 K/mm3 05/15/17 04:42 Lymphocytes # (Manual) 0.6 K/mm3 (1.2-5.4) L 05/15/17 04:42 Abs React Lymphs (Man) 0.0 K/mm3 05/15/17 04:42 Monocytes # (Manual) 0.1 K/mm3 (0.0-0.8) 05/15/17 04:42 Eosinophils # (Manual) 0.0 K/mm3 (0.0-0.4) 05/15/17 04:42 Basophils # (Manual) 0.0 K/mm3 (0.0-0.1) 05/15/17 04:42 Metamyelocytes # 0.2 K/mm3 05/15/17 04:42 Myelocytes # 0.0 K/mm3 05/15/17 04:42 Promyelocytes # 0.0 K/mm3 05/15/17 04:42 Blast Cells # 0.0 K/mm3 05/15/17 04:42 WBC Morphology Not Reportable 05/15/17 04:42 Hypersegmented Neuts Not Reportable 05/15/17 04:42 Hyposegmented Neuts Not Reportable 05/15/17 04:42 Hypogranular Neuts Not Reportable 05/15/17 04:42 Smudge Cells Few 05/15/17 04:42 Toxic Granulation Not Reportable 05/15/17 04:42 Toxic Vacuolation Not Reportable 05/15/17 04:42 Dohle Bodies Not Reportable 05/15/17 04:42 Pelger-Huet Anomaly Not Reportable 05/15/17 04:42 Chevy Rods Not Reportable 05/15/17 04:42 Platelet Estimate Consistent w auto 05/15/17 04:42 Clumped Platelets Not Reportable 05/15/17 04:42 Plt Clumps, EDTA Not Reportable 05/15/17 04:42 Large Platelets Not Reportable 05/15/17 04:42 Giant Platelets Not Reportable 05/15/17 04:42 Platelet Satelliting Not Reportable 05/15/17 04:42 Plt Morphology Comment Not Reportable 05/15/17 04:42 RBC Morphology Not Reportable 05/15/17 04:42 Dimorphic RBCs Not Reportable 05/15/17 04:42 Polychromasia 1+ 05/15/17 04:42 Hypochromasia Not Reportable 05/15/17 04:42 Poikilocytosis Not Reportable 05/15/17 04:42 Basophilic Stippling Rare 05/13/17 05:17 Anisocytosis 1+ 05/15/17 04:42 Microcytosis Not Reportable 05/15/17 04:42 Macrocytosis Not Reportable 05/15/17 04:42 Spherocytes Not Reportable 05/15/17 04:42 Pappenheimer Bodies Not Reportable 05/15/17 04:42 Sickle Cells Not Reportable 05/15/17 04:42 Target Cells Not Reportable 05/15/17 04:42 Tear Drop Cells Few 05/15/17 04:42 Ovalocytes 1+ 05/15/17 04:42 Helmet Cells Not Reportable 05/15/17 04:42 [place] Bodies Not Reportable 05/15/17 04:42 [place] Rings Not Reportable 05/15/17 04:42 Angeli Cells Not Reportable 05/15/17 04:42 Bite Cells Not Reportable 05/15/17 04:42 Crenated Cell Not Reportable 05/15/17 04:42 Elliptocytes Not Reportable 05/15/17 04:42 Acanthocytes (Spur) Not Reportable 05/15/17 04:42 Rouleaux Not Reportable 05/15/17 04:42 Hemoglobin C Crystals Not Reportable 05/15/17 04:42 Schistocytes Not Reportable 05/15/17 04:42 Malaria parasites Not Reportable 05/15/17 04:42 ESR 84 mm/Hr (0-20) 05/12/17 13:05 Percent Retic 2.14 % (0.78-2.58) 05/12/17 13:05 Driss Bodies Not Reportable 05/15/17 04:42 Hem Pathologist Commnt No 05/15/17 04:42 POC ABG pH 7.313 (7.35-7.45) L 05/09/17 19:00 POC ABG pCO2 29.3 (35-45) L 05/09/17 19:00 POC ABG pO2 103 (80-105) 05/09/17 19:00 POC ABG HCO3 14.9 05/09/17 19:00 POC ABG Total CO2 16 05/09/17 19:00 POC ABG O2 Sat 97 05/09/17 19:00 POC ABG Base Excess -11 05/09/17 19:00 FiO2 21 % 05/09/17 19:00 Sodium 144 mmol/L (137-145) 05/17/17 05:37 Potassium 3.6 mmol/L (3.6-5.0) 05/17/17 05:37 Chloride 108.2 mmol/L (98-107) H 05/17/17 05:37 Carbon Dioxide 26 mmol/L (22-30) 05/17/17 05:37 Anion Gap 13 mmol/L 05/17/17 05:37 BUN 36 mg/dL (7-17) H 05/17/17 05:37 Creatinine 0.9 mg/dL (0.7-1.2) 05/17/17 05:37 Estimated GFR > 60 ml/min 05/17/17 05:37 BUN/Creatinine Ratio 40 % 05/17/17 05:37 Glucose 109 mg/dL (65-100) H 05/17/17 05:37 POC Glucose 138 (70-105) H 05/14/17 15:52 Calcium 7.6 mg/dL (8.4-10.2) L 05/17/17 05:37 Phosphorus 2.60 mg/dL (2.5-4.5) 05/17/17 05:37 Magnesium 1.70 mg/dL (1.7-2.3) 05/16/17 06:00 Iron 76 ug/dL (37-170) 05/12/17 13:05 TIBC 173 mcg/dL (250-450) L 05/12/17 13:05 % Saturation 43.93 % 05/12/17 13:05 Transferrin 160 mg/dl (192-382) L 05/12/17 13:05 Ferritin 779.1 ng/mL (13.0-400.0) H 05/12/17 13:05 Total Bilirubin < 0.20 mg/dL (0.1-1.2) 05/12/17 13:05 Direct Bilirubin < 0.2 mg/dL (0-0.2) 05/12/17 13:05 Indirect Bilirubin 0.0 mg/dL 05/12/17 13:05 AST 49 units/L (5-40) H 05/12/17 13:05 ALT 38 units/L (7-56) 05/12/17 13:05 Alkaline Phosphatase 37 units/L (35-129) 05/12/17 13:05 Lactate Dehydrogenase 794 units/L (91-180) H 05/15/17 04:42 Total Creatine Kinase 212 units/L (30-135) H 05/11/17 12:48 CK-MB (CK-2) 6.1 ng/mL (0.0-4.0) H 05/11/17 12:48 CK-MB (CK-2) Rel Index 2.8 (0-4) 05/11/17 12:48 Troponin T 0.096 ng/mL (0.00-0.029) H 05/11/17 12:48 C-Reactive Protein 0.10 mg/dL (0.00-1.30) 05/11/17 16:07 Total Protein 4.6 g/dL (6.3-8.2) L D 05/12/17 13:05 Albumin 2.0 g/dL (3.9-5) L 05/12/17 13:05 Albumin/Globulin Ratio 0.8 % 05/12/17 13:05 Vitamin B12 1311 pg/mL (211-911) H 05/12/17 13:05 Folate > 20 ng/mL (7.3-26.0) 05/12/17 13:05 PTH Intact 117.2 pg/mL (15-65) H 05/09/17 13:19 Urine Color Yellow (Yellow) 05/11/17 10:43 Urine Turbidity Clear (Clear) 05/11/17 10:43 Urine pH 6.0 (5.0-7.0) 05/11/17 10:43 Ur Specific Boelus 1.010 (1.003-1.030) 05/11/17 10:43 Urine Protein 100 mg/dl mg/dL (Negative) 05/11/17 10:43 Urine Glucose (UA) Neg mg/dL (Negative) 05/11/17 10:43 Urine Ketones Neg mg/dL (Negative) 05/11/17 10:43 Urine Blood Mod (Negative) 05/11/17 10:43 Urine Nitrite Neg (Negative) 05/11/17 10:43 Ur Reducing Substances Not Reportable 05/08/17 Unknown Urine Bilirubin Neg (Negative) 05/11/17 10:43 Urine Ictotest Not Reportable 05/08/17 Unknown Urine Urobilinogen < 2.0 mg/dL (<2.0) 05/11/17 10:43 Ur Leukocyte Esterase Neg (Negative) 05/11/17 10:43 Urine WBC (Auto) 5.0 /HPF (0.0-6.0) 05/11/17 10:43 Urine RBC (Auto) 10.0 /HPF (0.0-6.0) 05/11/17 10:43 U Epithel Cells (Auto) 5.0 /HPF (0-13.0) 05/11/17 10:43 Urine Bacteria (Auto) 2+ /HPF (Negative) 05/08/17 Unknown Urine Mucus Few /HPF 05/08/17 Unknown Urine Eosinophils None seen (None Seen) 05/11/17 Unknown Urine Osmolality 344 Mosm/kg 05/09/17 02:36 Urine Creatinine 81.9 mg/dL (0.1-20.0) H 05/15/17 05:00 Protein/Creatinin Ratio 2.33 05/15/17 05:00 Urine Sodium 30 mmol/L 05/09/17 02:36 Urine Total Protein 191 mg/dL (5-11.8) H 05/15/17 05:00 Urine HCG, Qual Negative (Negative) 05/08/17 Unknown MALU Screen Positive (Negative) H 05/09/17 13:19 MALU Titer 1:640 (Negative) H 05/09/17 13:19 MALU Pattern Homogeneous 05/09/17 13:19 Proteinase 3 (PR3) Ab <1.0 AI (<1.0) 05/11/17 12:48 Myeloperoxidase Ab <1.0 AI (<1.0) 05/11/17 12:48 Double Strand DNA Ab 104 IU/mL (<=4) H 05/09/17 13:19 Glomerular Base Mem IgG <1.0 AI (<1.0) 05/11/17 12:48 Complement C3 20 mg/dL (90-180) L 05/09/17 13:19 Complement C4 6 mg/dL (16-47) L 05/09/17 13:19 Tot Complement (CH50) <10 U/mL (31-60) L 05/09/17 13:19 Hep Bs Antigen Non-reactive (Negative) 05/11/17 12:48 Hepatitis C Antibody Non-reactive (NonReactive) 05/11/17 12:48 HIV 1&2 Antibody Rapid Non react (Non React) 05/11/17 12:48 HIV P24 Antigen Non react (Non React) 05/11/17 12:48 Schistocytes Smear Rare 05/11/17 12:48 Blood Type AB POSITIVE 05/10/17 08:12 Antibody Screen Positive 05/10/17 08:12 FRANDY Antibody Screen Positive 05/10/17 08:12 Antibody Identification Anti-IH Warm Auto Antibody 05/10/17 08:12 Antibody Identification Anti-IH Warm Auto Antibody 05/10/17 08:12 Direct Antiglob Test Positive 05/10/17 08:12 ABDIRAHMAN (IgG-AHG) Positive 05/10/17 08:12 ABDIRAHMAN, Poly Interpret Positive 05/10/17 08:12 ABDIRAHMAN, Anti-C3 Negative 05/10/17 08:12 Crossmatch See Detail 05/10/17 08:12
[2017-05-18] MEDS: NYSTATIN PO SCH ×3 (00:14→12:41)
[2017-05-18] MEDS: D5W 1,000 ML IV SCH (02:32)
[2017-05-18 05:26] LABS: Hematocrit 24.4 % (30.3-42.9); Mean Corpuscular HGB Conc 33 % (30-34); Mean Corpuscular Hemoglobin 29 pg (28-32); Mean Corpuscular Volume 89 fl (79-97); Red Blood Count 2.74 M/mm3 (3.65-5.03); Red Cell Distribution Width 18.4 % (13.2-15.2); White Blood Count 6.8 K/mm3 (4.5-11.0)
[2017-05-18 05:29] LABS: Platelet Count 70 K/mm3 (140-440)
[2017-05-18 05:48] LABS: Anion Gap 12 mmol/L; BUN/Creatinine Ratio 35; Blood Urea Nitrogen 28 mg/dL (7-17); Calcium 7.8 mg/dL (8.4-10.2); Carbon Dioxide 22 mmol/L (22-30); Chloride 105.7 mmol/L (98-107); Glucose 225 mg/dL (65-100); Potassium 3.1 mmol/L (3.6-5.0); Sodium 137 mmol/L (137-145)
[2017-05-18] MEDS ORDERED: K-DUR PO NR (09:00)
--- NOTE | 2017-05-18 09:22 | Hem/Onc Progress Note ---
Assessment and Plan Continue to monitor. CBC stable. Can be discharged if stable. pt states she can f/u with rheum Subjective Date of service: 05/18/17 Interval history: Patient seems better. eating. Trying to feed herself. Denies any significant pain Objective - Constitutional Vitals: Last Vital Signs Temp 98.7 F 05/18/17 04:01 Pulse 51 L 05/18/17 00:10 Resp 18 05/18/17 05:04 BP 145/82 05/18/17 04:01 Pulse Ox 99 05/18/17 05:04 Pain Intensity (0-10): denies any pain - Neck Neck: supple - Respiratory Respiratory effort: Positive: normal Respiratory: bilateral: CTA - Cardiovascular Rhythm: regular Extremities: No edema - Gastrointestinal General gastrointestinal: Present: soft - Labs Lab Results: Laboratory Results - last 24 hr 05/18/17 05/18/17 04:46 04:49 WBC 6.8 RBC 2.74 L Hgb 8.0 L Hct 24.4 L MCV 89 MCH 29 MCHC 33 RDW 18.4 H Plt Count 70 L Lymph % (Auto) 8.1 L [place] % (Auto) 3.6 Eos % (Auto) 0.0 Baso % (Auto) 0.0 Lymph # 0.6 L [place] # 0.2 Eos # 0.0 Baso # 0.0 Seg Neutrophils % 88.3 H Seg Neutrophils # 6.0 Sodium 137 Potassium 3.1 L Chloride 105.7 Carbon Dioxide 22 Anion Gap 12 BUN 28 H Creatinine 0.8 Estimated GFR > 60 BUN/Creatinine Ratio 35 Glucose 225 H Calcium 7.8 L
[2017-05-18] MEDS: KEPPRA PO SCH (09:32)
[2017-05-18] MEDS: DELTASONE PO SCH (09:32)
[2017-05-18] MEDS: FOLVITE PO SCH (09:32)
[2017-05-18] MEDS: MEGACE PO SCH ×2 (09:32→14:44)
[2017-05-18] MEDS ORDERED: LEVAQUIN PO SCH (10:00)
[2017-05-18 12:18] VITALS: BP 169/91
--- NOTE | 2017-05-18 12:18 | Discharge Summary ---
Providers - Providers Date of Admission: 05/09/17 02:18 Date of discharge: 05/18/17 Attending physician: CRIS BOWENS 05/09/17 02:24 Consult to Physician [CONS] Routine Consulting Provider: KIRBY BALDERRAMA Reason For Exam: arf Place consult to:: Dr. Balderrama Notified:: Elo RN Phone number called:: Was contact made?: Yes If yes, spoke with:: Dr. Bryant Time called:: 08:57 05/09/17 09:49 Consult to Dietitian/Nutrition [CONS] Routine Physician Instructions: Reason For Exam: Reason for Consult: Malnutrition 05/10/17 15:57 Consult to Physician [CONS] Routine Consulting Provider: PEYMAN GUERRA Reason For Exam: bilateral ottis media Place consult to:: ID Notified:: Elo Phone number called:: [phone] Was contact made?: No Time called:: 16:35 Comment:: left voicemail msg on MD cell phone 05/11/17 21:28 Consult to Physician [CONS] Routine Consulting Provider: NIKO WALKER Reason For Exam: autoimmune anemia Place consult to:: Dr. Walker Notified:: Ansley BAGLEY Phone number called:: Was contact made?: Yes If yes, spoke with:: Osmani service Time called:: 08:16 05/15/17 15:42 Consult to Physician [CONS] Routine Consulting Provider: SERA MENDEZ Reason For Exam: seizure Place consult to:: neur Notified:: lata service Phone number called:: [phone] Was contact made?: Yes If yes, spoke with:: maci Time called:: 16:39 Primary care physician: [employer] Hospitalization Condition: Stable Hospital course: Patient is a 26 yo woman with PMH of Lupus (diagnosed in 2008) and anemia who presented to [facility] today with complaints of generalized weakness, fatigue, nosebleed (woke up with nosebleed), decreased appetite, and bilateral ear pain with drainage for the past 3-4 days. Patient states she was hospitalized [facility] overnight last week for suspected lupus flare up, prescribed prednisone upon discharge. Patient also states she had an infection (not sure of source) when she was at [place], no antibiotics prescribed. Acute Metabolic Encephalopathy, resolved Possible steroid induced psychosis vs seizure. 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 CT of the brain was negative MRI spend Neurology consulted Intractable seizure Ativan PRN seizure precautions Keppra started Acute kidney injury, multifactorial and vasomotor nephropathy,poa -improving down to 1.2 - ATN versus lupus nephritis - Nephrology consulted - Creatinine Resolved - Plan per nephrology for renal biopsy once UTI treated - Patient was given IV fluids and steroids Thrombocytopenia - improving started on Pulse dose steroids. Continue to monitor. - Hematology input noted Severe anemia, FOBT negative - Improved with transfusion ordered - Iron def noted also - Patient with multiple antibodies delaying transfusion - ?Autoimmune, - occult blood negative, avoid all antiplatelet medications at this time SLE flareup - Continue steroids Bilateral otitis media with Sepsis, not SIRS poa, urine ctx contaminated - Continue IV antibiotic -Cefriaxone stopped and patient started on cefepime to cover for GPC AND GNB including pseudomonas -ID following -ENT strongly encouraged out patient, and patient verbalized understanding No AMI Decreased appetite - megestrol ordered - Nutrition consult, Check Albumin level DVT prophylaxis - SCDs because of severe anemia Disposition - Continue inpatient care CODE STATUS Full Brain MRI without contrast read as "abnormal T2 signal in the subcortical white matter and cortex of the bilateral parieto-occipital and posterior temporal lobes. 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 Is this an eclamptic or hypertensive patient? Please correlate with the patient clinical presentation." Keppra started I advised patient to make an appointment with Lupus clinic at [place] Disposition: TO HOME OR SELFCARE Time spent for discharge: 37 minutes Core Measure Documentation - Palliative Care Palliative Care/ Comfort Measures: Not Applicable - Core Measures Any of the following diagnoses?: none - VTE Discharge Requirements Deep Vein Thrombosis/Pulmonary Embolism Present on Admission: No Has pt received <5 days of overlap therapy or INR<2.0: No Anticoagulant overlap therapy prescribed at discharge: No Contraindication No Overlap Therapy order at DC: Not Indicated Exam - Physical Exam Narrative exam: GEN: Thin woman, NAD, AWAKE, ALERT, ORIENTATED 3 HEENT: NCAT, EOMI, PERRL, OP Clear NECK: supple, no adenopathy, no thyromegaly, no JVD CVS/HEART: RRR, NORMAL S1S2, NO JVD, pulses present bilaterally CHEST/LUNGS: CTA B, Symmetrical chest expansion, good air entry bilaterally GI/Abdomen: soft, NTND, good bowel sounds, no guarding or rebound /Bladder: no suprapubic tenderness, no CVA or paraspinal tenderness EXT/Skin: no c/c/e, no obvious rash MSK: FROM x 4 Neuro: CN 2-12 grossly intact, no new focal deficits Psych: calm - Constitutional Vitals: Temp Pulse Resp BP Pulse Ox 98.7 F 49 L 16 145/82 99 05/18/17 04:01 05/18/17 11:00 05/18/17 09:54 05/18/17 04:01 05/18/17 05:04 Plan Activity: other (no strenous activity until cleared by pcp) Diet: low salt Additional Instructions: Please make the first available appointment with her lupus clinic at [place] phone [phone] or main number [phone] Follow up with: PRIMARY CARE, [Primary Care Provider] - 3-5 Days Prescriptions: levETIRAcetam [Keppra TAB] 750 mg PO BID #30 day Levofloxacin [Levaquin TAB] 500 mg PO Q24HR #3 day Megestrol [Megace] 40 mg PO QID #30 day Nystatin [Nystatin SUSP] 500,000 unit PO Q6HR #7 day oxyCODONE /ACETAMINOPHEN [Percocet 5/325 mg] 1 tab PO Q6H PRN #30 tablet PRN Reason: Pain , Severe (7-10) predniSONE [Deltasone] 60 mg PO QDAY #30 day
--- NOTE | 2017-05-18 13:21 | Progress Note ---
Assessment and Plan (1) Acute renal failure Current Visit: Yes Status: Acute Qualifiers: Acute renal failure type: A Plan to address problem: resolved she will need to be followed on discharge with rheumatology. she will be seen in our office in 1-2 weeks, may need a kidney biopsy at some point Renally dose medications Avoid Nephrotoxic agents Obtain daily weights Monitor I/O's Monitor renal function closely (2) Anemia Current Visit: Yes Status: Acute Qualifiers: Anemia type: A Iron deficiency anemia type: I Vitamin B12 deficiency anemia type: V Folate deficiency anemia type: F Bone marrow failure anemia type: B Hemolytic anemia type: H Other causes of anemia: O Chronic kidney disease stage: C Plan to address problem: Hematology consulted- Dr. Kilgore (3) Metabolic acidosis Current Visit: Yes Status: Acute Plan to address problem: off IVF (4) Acute otitis media Current Visit: Yes Status: Acute Qualifiers: Otitis media type: O Laterality: L Recurrence: R Spontaneous tympanic membrane rupture: S Plan to address problem: followed by ID (5) Lupus Current Visit: No Status: Acute Qualifiers: Systemic lupus erythematosus type: S Systemic lupus erythematosus organ involvement: S Plan to address problem: on oral prednisone Subjective Date of service: 05/18/17 Principal diagnosis: renal failure Interval history: denies overnight events Objective - Vital Signs Vital signs: Vital Signs - 12hr 05/18/17 05/18/17 05/18/17 04:01 05:04 07:43 Temperature 98.7 F Pulse Rate Pulse Rate [ From Monitor] Respiratory 20 18 16 Rate Blood Pressure 145/82 170/94 O2 Sat by Pulse 99 Oximetry 05/18/17 05/18/17 05/18/17 08:05 09:54 11:00 Temperature Pulse Rate 49 L 49 L Pulse Rate [ 54 L From Monitor] Respiratory 16 Rate Blood Pressure 169/91 O2 Sat by Pulse 99 Oximetry - General Appearance General appearance: well-developed, well-nourished, appears stated age EENT: ATNC, PERRL, mucous membranes moist Neck: no JVD Respiratory: Present: Clear to Ascultation Cardiology: regular, S1S2 Gastrointestinal: normoactive bowel sounds Integumentary: no rash, warm and dry Neurologic: no focal deficit, no asterixis, alert and oriented x3 Psychiatric: mood/affect appropriate, cooperative - Lab 05/18/17 04:49 05/18/17 04:46 Most recent lab results Calcium 7.8 mg/dL (8.4-10.2) L 05/18/17 04:46 Phosphorus 2.60 mg/dL (2.5-4.5) 05/17/17 05:37 Magnesium 1.70 mg/dL (1.7-2.3) 05/16/17 06:00 Urine Creatinine 81.9 mg/dL (0.1-20.0) H 05/15/17 05:00 Urine Sodium 30 mmol/L 05/09/17 02:36 Urine Total Protein 191 mg/dL (5-11.8) H 05/15/17 05:00
== END 2017-05-18 18:16 | disposition home or self-care (01) | DRG 682 ==
LOC: ED 17:12 → 4A 05-09 02:18
PROVIDERS: ADMIT Internal Medicine; ATTEND Internal Medicine
PROC: 4A033R1 Measurement of Arterial Saturation, Peripheral, Percutaneous Approach (ICD-10-PCS; 2017-05-09)
PROC: 30233N1 Transfusion of Nonautologous Red Blood Cells into Peripheral Vein, Percutaneous Approach (ICD-10-PCS; 2017-05-11)
PROC: 3E0234Z Introduction of Serum, Toxoid and Vaccine into Muscle, Percutaneous Approach (ICD-10-PCS; principal; 2017-05-12)
DX: N17.0 Acute kidney failure with tubular necrosis (principal); G93.41 Metabolic encephalopathy; E87.2 Acidosis; R65.10 Systemic inflammatory response syndrome (SIRS) of non-infectious origin without acute organ dysfunction; N30.00 Acute cystitis without hematuria; B37.0 Candidal stomatitis; Z23 Encounter for immunization; M32.9 Systemic lupus erythematosus, unspecified; E86.0 Dehydration; Z82.49 Family history of ischemic heart disease and other diseases of the circulatory system; H66.93 Otitis media, unspecified, bilateral; D63.8 Anemia in other chronic diseases classified elsewhere; D69.6 Thrombocytopenia, unspecified
CPT/HCPCS: 36415; 36600; 70450; 70553; 71010; 76770; 80048; 80053; 80074; 81001; 81025; 82270; 82550; 82553; 82570; 82607; 82728; 82747; 82803; 82962; 83520; 83550; 83615; 83735; 83935; 83970; 84100; 84156; 84300; 84484; 85007; 85014; 85018; 85025; 85027; 85045; 85652; 86021; 86038; 86140; 86160; 86162; 86225; 86706; 86803; 86850; 86870; 86880; 86900; 86901; 86920; 87040; 87086; 87806; 89050; 90686; 90732; 93005; 93010; 93306; 96361; 96374; 96375; A9577; J0690; J0692; J0696; J1953; J2060; J2405; J2930; J7030; J7040; J7070; J7512; P9016